=== PATIENT | female | born 1930 | race Caucasian/White ===

== ENCOUNTER 2019-08-15 11:35 | Emergency (ER) | payer MEDICARE, OTHER ==
[~2019-08-15] VITALS: Ht 147.3 cm; Wt 60.5 kg
[2019-08-15] MEDS ORDERED: TETANUS,DIPTH,PERTUSS P/F (BOOSTRIX) 0.5 ML VIAL IM ONE ×2 (12:00→14:07)
--- NOTE | 2019-08-15 12:01 | ED Upper Extremity ---
General Chief Complaint: Upper Extremity Stated Complaint: LT ARM INJ Source: patient Exam Limitations: no limitations History of Present Illness Date Seen by Provider: Aug 15, 2019 Time Seen by Provider: 11:40 Initial Comments The patient is a very pleasant 89 -year-old female who presents for evaluation of a left forearm injury. She states that she was preparing to walk up stairs when she lost her balance hitting her left distal forearm on the stairs. She had a slight skin tear and has applied a Band-Aid. She is unsure of her tetanus status of this will be updated today. She denies hitting her head, losing consciousness, or any other complaints. Onset: this morning Severity: moderate Pain/Injury Location: left forearm Method of Injury: fell Modifying Factors: Improves With Movement (makes it worse) Allergies and Home Medications Allergies Coded Allergies: No Known Drug Allergies (Unverified , 08/15/19) Patient Home Medication List Home Medication List Reviewed: Yes Review of Systems Constitutional: no symptoms reported EENTM: no symptoms reported Respiratory: no symptoms reported Cardiovascular: no symptoms reported Gastrointestinal: no symptoms reported Genitourinary: no symptoms reported Musculoskeletal: other (left distal forearm pain) Skin: no symptoms reported Psychiatric/Neurological: No Symptoms Reported All Other Systems Reviewed Negative Unless Noted: Yes Past Hgtvsro-Cqupge-Orrrki Hx Past Med/Social Hx: Reviewed Nursing Past Med/Soc Hx Patient Social History Recent Foreign Travel: No Physical Exam Vital Signs Vital Signs - First Documented 08/15/19 11:41 Temp 36.0 Pulse 72 Resp 16 B/P (MAP) 183/80 (114) Pulse Ox 97 O2 Delivery Room Air Capillary Refill : Height, Weight, BMI Height: '" Weight: lbs. oz. 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 A sugar tong Ortho-Glass splint will be applied to the arm. Advised the patient to follow up with orthopedics provided in the next 1-2 days and to return to the [facility] Department immediately for new or worsening symptoms. The patient expresses verbal understanding and agreement with plan and is stable for discharge. Diagnostic Imaging Comments [facility]. POS [place], [place] POS NAME: JESIKA WINTERS [facility] REC#: [id number] PT STATUS: REG ER : 1932 PHYSICIAN: JACINDA STACY DO ADMIT DATE: 08/15/19/ER FS Draft POSDate of Exam:08/15/19 FOREARM 2 VIEW LEFT INDICATION: Fall and left arm pain. TIME OF EXAM: 11:41 a.m. FINDINGS: Three views of the left forearm are obtained. There is an acute fracture of the distal ulna. No significant displacement or angulation is seen. There may be an old fracture deformity of the distal radius. Carpus and metacarpals are intact. Alignment at the elbow appears normal. IMPRESSION: Acute nondisplaced distal ulnar fracture. Dictated on workstation # [id number] Dict: 08/15/19 1211 Trans: 08/15/19 1213 [facility] [id number] Interpreted by: MARGY RAMIREZ MD Electronically signed by: Departure Impression Primary Impression: Left ulnar fracture Disposition: 01 HOME, SELF-CARE Condition: Stable Departure-Patient Inst. Decision time for Depature: 13:29 Referrals: STACEY WRIGHT DO Patient Instructions: Forearm Fracture (DC) Add. Discharge Instructions: Take the prescribed medication as directed, as needed. Follow-up with orthopedics provided within the next 1-2 days. Return to the emergency Department immediately for new or worsening symptoms. Scripts Hydrocodone/Acetaminophen ([place] 5-325 Tablet) 1 Each Tablet 1 TAB PO Q4-6HR for Pain MDD 10 TABS for 7 Days, #15 TAB Prov: JACINDA STACY DO 08/15/19 JACINDA STACY DO Aug 15, 2019 12:01 POS
--- NOTE | 2019-08-15 12:13 | Diagnostic Imaging Report ---
INDICATION: Fall and left arm pain. TIME OF EXAM: 11:41 a.m. FINDINGS: Three views of the left forearm are obtained. There is an acute fracture of the distal ulna. No significant displacement or angulation is seen. There may be an old fracture deformity of the distal radius. Carpus and metacarpals are intact. Alignment at the elbow appears normal. IMPRESSION: Acute nondisplaced distal ulnar fracture. Dictated by: Dictated on workstation # [id number]
[2019-08-15] MEDS ORDERED: HYDR-4226 PO (13:31)
[2019-08-15 14:24] VITALS: BP 163/71
== END 2019-08-15 14:24 | disposition home or self-care (01) ==
LOC: EDUNIT# 11:35 → ER FS 11:37
DX: S52.602A Unspecified fracture of lower end of left ulna, initial encounter for closed fracture (principal); W22.8XXA Striking against or struck by other objects, initial encounter; W10.9XXA Fall (on) (from) unspecified stairs and steps, initial encounter
CPT/HCPCS: 29125; 73090; 90471; 90715

== ENCOUNTER → 2019-08-26 | Outpatient (CLI) | payer MEDICARE ==
[~2019-08-26] MED LIST: HYDR-4226 PO
--- NOTE | 2019-08-26 10:09 | Diagnostic Imaging Report ---
EXAMINATION: Left wrist at 905h. INDICATION: Follow-up fracture 3 views were obtained. The prior exam of 08/15/2019 noted an acute essentially nondisplaced fracture of the distal ulna. In the interval since the prior study the fracture fragments have become displaced. The distal fracture fragment is displaced dorsally and medially by approximately 2-3 mm. The fracture now appears to be slightly comminuted as well. No other fracture or acute bony abnormality is appreciated. The degenerative changes involving the radiocarpal joint seen previously are again evident and have not progressed. There is still soft tissue edema about the distal forearm. IMPRESSION: 1. There is greater displacement of the fracture fragments of the distal ulna than noted on the prior exam. The fracture also now appears to be slightly comminuted. 2. There is no acute bony abnormality appreciated. 3. These results were discussed with Alex Mendoza APRN. Dictated by: Dictated on workstation # [id number]
--- NOTE | 2019-08-26 10:19 | Diagnostic Imaging Report ---
INDICATION: Left ulnar fracture follow-up 2 views of the left wrist show an opaque splint in place. There is an oblique fracture of the distal ulna with slight medial offset of the distal component by half the width of the shaft. There is also slight dorsal displacement of the distal component. There is no angular deformity. IMPRESSION: Stable alignment of the distal ulnar fracture following casting. Dictated by: Dictated on workstation # [id number]
== END ==
LOC: RAD FS 08:58
PROVIDERS: ATTEND Nurse Practitioner
DX: S52.692D Other fracture of lower end of left ulna, subsequent encounter for closed fracture with routine healing (principal)
CPT/HCPCS: 73100; 73110

== ENCOUNTER → 2019-09-09 | Outpatient (CLI) | payer MEDICARE ==
--- NOTE | 2019-09-09 10:36 | Diagnostic Imaging Report ---
INDICATION: Fracture, followup TECHNIQUE: Four views of the left wrist CORRELATION STUDY: 08/26/2019, 08/15/2019 FINDINGS: Cast material obscures detail. Comminuted displaced distal ulna fracture is again demonstrated. The severity of offset of the main distal fracture fragment approximately half the width of the bone appears generally stable. There is no appreciable interval healing callus formation. Deformity about the distal radius, stable. Advanced degenerative changes at the radiocarpal row. IMPRESSION: 1. No appreciable interval healing of the mildly displaced distal ulna fracture. Alignment generally stable. Dictated by: Dictated on workstation # [id number]
== END ==
LOC: RAD FS 09:28
PROVIDERS: ATTEND Nurse Practitioner
DX: S52.692D Other fracture of lower end of left ulna, subsequent encounter for closed fracture with routine healing (principal)
CPT/HCPCS: 73110

== ENCOUNTER → 2019-10-07 | Outpatient (CLI) | payer MEDICARE ==
--- NOTE | 2019-10-07 09:19 | Diagnostic Imaging Report ---
INDICATION: Left ulnar fracture followup. FINDINGS: Four views of the left wrist show a healing fracture of the distal shaft of the ulna. The fracture is obliquely oriented with some comminution. There does appear to be some callus forming along the medial and lateral margins of the fracture. IMPRESSION: Healing fracture of the distal shaft in stable alignment. Dictated by: Dictated on workstation # [id number]
== END ==
LOC: RAD FS 09:08
PROVIDERS: ATTEND Nurse Practitioner
DX: S52.692D Other fracture of lower end of left ulna, subsequent encounter for closed fracture with routine healing (principal)
CPT/HCPCS: 73110

== ENCOUNTER → 2019-11-05 | Outpatient (CLI) | payer MEDICARE ==
--- NOTE | 2019-11-05 09:42 | Diagnostic Imaging Report ---
EXAMINATION: Left wrist radiographs, 3 views. COMPARISON: Left wrist radiographs October 07, 2019. HISTORY: 89-year-old female, fracture follow-up. FINDINGS: There is a redemonstrated displaced fracture of the distal ulnar diaphysis. The distal fracture fragment is displaced ulnarly by 3.4 mm. There is interval increase in bony callus bridging. There is a partially visible fracture line still present. There is no additional identified fracture. IMPRESSION: 1. Interval partial healing changes of the displaced distal ulnar diaphyseal fracture. Dictated by: Dictated on workstation # [id number]
== END ==
LOC: RAD FS 08:15
PROVIDERS: ATTEND Nurse Practitioner
DX: S52.692D Other fracture of lower end of left ulna, subsequent encounter for closed fracture with routine healing (principal)
CPT/HCPCS: 73110

== ENCOUNTER 2019-12-08 16:34 | Emergency (ER) | payer MEDICARE ==
[~2019-12-08] VITALS: Ht 147 cm; Wt 60.5 kg
--- NOTE | 2019-12-08 16:50 | ED Fall/Injury ---
General Stated Complaint: FALL; LT ARM PAIN History of Present Illness Date Seen by Provider: Dec 08, 2019 Time Seen by Provider: 16:47 Initial Comments This patient is an 89-year-old female presents to the emergency status post fall. Patient was outside walking and states she was going of a slightly inclined and lean her forward up the heel and there just fell forward landing on her left arm. Patient is complaining of left shoulder and left elbow and left wrist pain. No obvious signs of injury however patient has limited range of motion due to pain per patient. Patient is in a sling at this time per EMS. EMS reportedly did give the patient 50 of fentanyl for pain. Will do medical evaluation treatment is needed. Location Injury Occurred: Home Outside Occurred: just prior to arrival Injuries/Pain Location: upper extremity Context: lost balance Loss of Consciousness: no loss of consciousness Allergies and Home Medications Allergies Coded Allergies: No Known Drug Allergies (Unverified , 08/15/19) Home Medications Hydrocodone/Acetaminophen 1 Each Tablet, 1 TAB PO Q4-6HR Prescribed by: JACINDA STACY on 08/15/19 1331 Patient Home Medication List Home Medication List Reviewed: Yes Review of Systems Review of Systems Constitutional: no symptoms reported, see HPI Eyes: No Symptoms Reported Ears, Nose, Mouth, Throat: no symptoms reported, see HPI Respiratory: no symptoms reported; No see HPI, No cough, No dyspnea on exertion, No hemoptysis; orthopnea; No phlegm, No short of breath, No stridor, No wheezing, No other Cardiovascular: no symptoms reported; No see HPI, No chest pain; edema; No Hx of Intervention, No palpitations, No syncope, No vascular heart diseas, No other Gastrointestinal: No RUQ, No LUQ, No RLQ, No LLQ; no symptoms reported; No see HPI, No abdominal pain, No constipation, No diarrhea, No dysphagia, No hematemesis, No heartburn, No jaundice, No loss of appetite, No melena, No nausea, No vomiting, No other Genitourinary: no symptoms reported Musculoskeletal: see HPI, joint pain (left shoulder, left elbow, left wrist,) All Other Systems Reviewed Negative Unless Noted: Yes Past Mwkondj-Vtbdab-Alwysd Hx Past Med/Social Hx: Reviewed Nursing Past Med/Soc Hx, Reviewed and Corrections made Patient Social History 2nd Hand Smoke Exposure: No Recent Foreign Travel: Yes Recent Hopitalizations: No Immunizations Up To Date Tetanus Booster (TDap): Unknown Seasonal Allergies Seasonal Allergies: No Past Medical History Surgeries: Yes Appendectomy, Bowel Surgery Respiratory: No Cardiac: Yes High Cholesterol, Hypertension Neurological: Yes (Tremors) Vertigo Genitourinary: No Gastrointestinal: No Musculoskeletal: Yes (L Wrist) Fractures Endocrine: No HEENT: Yes Loss of Vision: Denies Hearing Impairment: Hard of Hearing Cancer: No Psychosocial: No Integumentary: No Blood Disorders: No Physical Exam Vital Signs Vital Signs - First Documented 12/08/19 17:10 Temp 37.0 Pulse 79 Resp 18 B/P (MAP) 170/123 (139) Pulse Ox 94 O2 Delivery Room Air Capillary Refill : Height, Weight, BMI Height: '" Weight: lbs. oz. kg; 27.00 BMI Method: General Appearance: WD/WN, no apparent distress HEENT: PERRL/EOMI, normal ENT inspection, TMs normal, pharynx normal Neck: non-tender, full range of motion, supple, normal inspection Cardiovascular: normal peripheral pulses, regular rate, rhythm, no edema, no gallop, no JVD, no murmur Respiratory: chest non-tender, lungs clear, normal breath sounds, no respiratory distress, no accessory muscle use Peripheral Pulses: 0 Carotid (R); 2+ Carotid (R); 0 Carotid (L); 2+ Carotid (L); 0 Femoral (R); 2+ Femoral (R); 0 Femoral (L); 2+ Femoral (L); 0 Dorsalis Pedis (R); 2+ Dorsalis Pedis (R), 2+ Left Dors-Pedis (L), 2+ Radial Pulses (R), 2+ Radial Pulses (L) Gastrointestinal: normal bowel sounds, non tender, soft, no organomegaly, no pulsatile mass Back: normal inspection, no CVA tenderness, no vertebral tenderness Extremities: other (patient complains of pain to range of motion of motion of the left shoulder elbow and wrist. Patient refuses produce pain exam due to complaints of pain. No obvious signs of injury. 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, no motor/sensory deficits, alert, normal mood/affect, oriented x 3 Skin: normal color, warm/dry Procedures/Interventions Splinting and Joint Reduction : Pre-Proc Neuro Vasc Exam: normal Post-Proc Neuro Vasc Exam: normal Joint Reduction Site: shoulder (L) Pre-Procedure NV Exam: Yes post joint reduction film: significant midshaft humeral fracture recommended long-arm splint and sling Long wrap: Yes Arm Sling: Medium Hand-Made Type: orthoglass Splint Application: Long Arm Progress/Results/Core Measures Results/Orders Lab Results Laboratory Tests Test 12/08/19 17:28 Range/Units White Blood Count 7.7 4.3-11.0 10^3/uL Red Blood Count 5.24 4.35-5.85 10^6/uL Hemoglobin 15.8 11.5-16.0 G/DL Hematocrit 48 35-52 % Mean Corpuscular Volume 91 80-99 FL Mean Corpuscular Hemoglobin 30 25-34 PG Mean Corpuscular Hemoglobin Concent 33 32-36 G/DL Red Cell Distribution Width 12.8 10.0-14.5 % Platelet Count 260 130-400 10^3/uL Mean Platelet Volume 9.7 7.4-10.4 FL Neutrophils (%) (Auto) 71 42-75 % Lymphocytes (%) (Auto) 18 12-44 % Monocytes (%) (Auto) 9 0-12 % Eosinophils (%) (Auto) 1 0-10 % Basophils (%) (Auto) 1 0-10 % Neutrophils # (Auto) 5.4 1.8-7.8 X 10^3 Lymphocytes # (Auto) 1.4 1.0-4.0 X 10^3 Monocytes # (Auto) 0.7 0.0-1.0 X 10^3 Eosinophils # (Auto) 0.1 0.0-0.3 10^3/uL Basophils # (Auto) 0.0 0.0-0.1 10^3/uL Prothrombin Time 12.3 12.2-14.7 SEC INR Comment 0.9 0.8-1.4 Activated Partial Thromboplast Time 27 24-35 SEC Sodium Level 142 135-145 MMOL/L Potassium Level 4.3 3.6-5.0 MMOL/L Chloride Level 105 98-107 MMOL/L Carbon Dioxide Level 23 21-32 MMOL/L Anion Gap 14 5-14 MMOL/L Blood Urea Nitrogen 22 H 7-18 MG/DL Creatinine 0.84 0.60-1.30 MG/DL Estimat Glomerular Filtration Rate > 60 BUN/Creatinine Ratio 26 Glucose Level 146 H 70-105 MG/DL Calcium Level 9.7 8.5-10.1 MG/DL Corrected Calcium 9.5 8.5-10.1 MG/DL Magnesium Level 2.5 H 1.6-2.4 MG/DL Total Bilirubin 0.5 0.1-1.0 MG/DL Aspartate Amino Transf (AST/SGOT) 23 5-34 U/L Alanine Aminotransferase (ALT/SGPT) 19 0-55 U/L Alkaline Phosphatase 70 40-136 U/L Myoglobin 45.5 10.0-92.0 NG/ML Troponin I < 0.30 <0.30 NG/ML Total Protein 6.9 6.4-8.2 GM/DL Albumin 4.2 3.2-4.5 GM/DL My Orders Orders - MAYUR SKAGGS MD Cbc With Automated Diff (12/08/19 16:44) Magnesium (12/08/19 16:44) Chest 1 View Ap/Pa Only (12/08/19 16:44) Ekg Tracing (12/08/19 16:44) Comprehensive Metabolic Panel (12/08/19 16:44) Myoglobin Serum (12/08/19 16:44) Protime With Inr (12/08/19 16:44) Partial Thromboplastin Time (12/08/19 16:44) O2 (12/08/19 16:44) Monitor-Rhythm Ecg Trace Only (12/08/19 16:44) Ed Iv/Invasive Line Start (12/08/19 16:44) Troponin I Fs (12/08/19 16:44) Shoulder 3 View Left (12/08/19 16:44) Elbow 2 View Left (12/08/19 16:44) Wrist 3 View Left (12/08/19 16:44) Humerus 2 View Left (12/08/19 17:23) Morphine Injection (Morphine Injection (12/08/19 18:30) Ondansetron Injection (Zofran Injectio (12/08/19 18:31) Vital Signs/I&O 12/08/19 12/08/19 17:10 17:10 Temp 37.0 Pulse 79 Resp 18 B/P (MAP) 170/123 (139) Pulse Ox 94 O2 Delivery Room Air Diagnostic Imaging Diagonstic Imaging: Xray Plain Films/CT/US/NM/MRI: other Comments Shoulder IMPRESSION: There is a fracture through the humeral neck and greater tuberosity and also oblique fracture through the proximal third of the humeral shaft. Departure Impression Primary Impression: Fall Additional Impressions: Fracture of humeral head, left, closed Humerus shaft fracture Disposition: 01 HOME, SELF-CARE Condition: Stable Transfer Transfer Reason: Patient preference Time Spoke to Accepting Phy: 18:34 Transfer Progress Notes Discussed at length with Dr Leung physician at [facility]. We discussed patient's imaging he states that the patient be placed in a long-arm splint for stability of the fractures. And also a sling. Follow-up with orthopedics as an outpatient. Adequate pain control. Rest ice elevation patient's family state understanding patient be discharged home shortly. Departure-Patient Inst. Decision time for Depature: 18:43 Patient Instructions: How to Make a Hot/Cold Rice Pack, Upper Arm Fracture Add. Discharge Instructions: Splint and sling as instructed. Keep arm elevated on a pillow in a position of comfort and apply ice packs. Continue with pain medicine as instructed. Follow- up with orthopedics as instructed. Scheduled outpatient appointment within 5-7 days. For further evaluation and treatment his splint replacement. Dr Jamari Arivzu, [facility] Address: [address] [place] [address] [address], [place] [address] Hours: Closed ? Opens 8:30AM Mon Scripts Hydrocodone Bit/Acetaminophen (HYDROcodone/APAP 7.5/325 TAB) 1 Ea Tablet 1 EA PO TID PRN for PAIN-MODERATE (5-7) for 7 Days, #10 TAB 0 Refills Prov: MAYUR SKAGGS MD 12/08/19 MAYUR SKAGGS MD Dec 08, 2019 16:50
--- NOTE | 2019-12-08 17:35 | Diagnostic Imaging Report ---
INDICATION: Fell, left arm pain. FINDINGS: Three views of the left wrist are obtained in nonstandard projections. A true lateral was never obtained. There is an old fracture of the distal radius and ulna. Osteopenia is present. No acute fractures are identified. IMPRESSION: There are no acute findings. Dictated by: Dictated on workstation # [id number]
--- NOTE | 2019-12-08 17:41 | Diagnostic Imaging Report ---
INDICATION: Fell, left shoulder pain. FINDINGS: Three views of the left shoulder demonstrate a fracture through the humeral neck and greater tuberosity. Fracture through the proximal third of the shaft is also present. IMPRESSION: There is a fracture through the humeral neck and greater tuberosity and also oblique fracture through the proximal third of the humeral shaft. Dictated by: Dictated on workstation # [id number]
[2019-12-08 17:43] LABS: WHITE BLOOD COUNT 7.7 10^3/uL (4.3-11.0)
[2019-12-08 17:44] LABS: BASOPHILS % (AUTO) 1 % (0-10); EOSINOPHILS # (AUTO) 0.1 10^3/uL (0.0-0.3); EOSINOPHILS % (AUTO) 1 % (0-10); HEMATOCRIT 48 % (35-52); HEMOGLOBIN 15.8 G/DL (11.5-16.0); LYMPHOCYTES # (AUTO) 1.4 X 10^3 (1.0-4.0); LYMPHOCYTES % (AUTO) 18 % (12-44); MEAN CORPUSCULAR HEMOGLOBIN 30 PG (25-34); MEAN CORPUSCULAR HGB CONC 33 G/DL (32-36); MEAN CORPUSCULAR VOLUME 91 FL (80-99); MEAN PLATELET VOLUME 9.7 FL (7.4-10.4); MONOCYTES # (AUTO) 0.7 X 10^3 (0.0-1.0); MONOCYTES % (AUTO) 9 % (0-12); NEUTROPHILS # (AUTO) 5.4 X 10^3 (1.8-7.8); NEUTROPHILS % (AUTO) 71 % (42-75); PLATELET COUNT 260 10^3/uL (130-400); RED CELL DISTRIBUTION WIDTH 12.8 % (10.0-14.5)
--- NOTE | 2019-12-08 17:44 | Diagnostic Imaging Report ---
INDICATION: Fell, left elbow pain. FINDINGS: Three views of the left elbow are obtained in nonstandard projections. Osteopenia is present. Joint effusion is present but no fractures identified. A radial head fracture is suspected. IMPRESSION: Nonstandard images of the left elbow demonstrates a joint effusion. Radial head fracture is suspected but is not visualized. Dictated by: Dictated on workstation # [id number]
[2019-12-08 17:59] LABS: PROTHROMBIN TIME PATIENT 12.3 SEC (12.2-14.7)
[2019-12-08 18:00] LABS: ALANINE AMINOTRANSFERASE 19 U/L (0-55); ALBUMIN 4.2 GM/DL (3.2-4.5); ALKALINE PHOSPHATASE 70 U/L (40-136); BILIRUBIN,TOTAL 0.5 MG/DL (0.1-1.0); BUN/CREATININE RATIO 26; CALCIUM 9.7 MG/DL (8.5-10.1); CARBON DIOXIDE 23 MMOL/L (21-32); CHLORIDE 105 MMOL/L (98-107); CREATININE SERUM 0.84 MG/DL (0.60-1.30); GFR ESTIMATED > 60; GLUCOSE 146 MG/DL (70-105); INR 0.9 (0.8-1.4); MAGNESIUM 2.5 MG/DL (1.6-2.4); POTASSIUM 4.3 MMOL/L (3.6-5.0); SODIUM 142 MMOL/L (135-145); TOTAL PROTEIN 6.9 GM/DL (6.4-8.2)
--- NOTE | 2019-12-08 18:01 | Diagnostic Imaging Report ---
INDICATION: Fell with left shoulder pain. FINDINGS: Frontal view of the chest demonstrates the lungs to be clear. The heart, mediastinum and pulmonary vascularity are normal. There are no pleural effusions. Left shoulder fracture will be dictated separately. IMPRESSION: Normal chest. Dictated by: Dictated on workstation # [id number]
--- NOTE | 2019-12-08 18:04 | Diagnostic Imaging Report ---
INDICATION: Fell, left arm pain. FINDINGS: Two views of the left arm demonstrate a spiral fracture through the proximal third of the humerus. There is a fracture through the greater tuberosity just entering the neck. IMPRESSION: There is a left humeral shaft fracture and a fracture through the greater tuberosity. Dictated by: Dictated on workstation # [id number]
[2019-12-08] MEDS ORDERED: morphine INJ 10 MG/ML 1ML (SYR OR VIAL) IVP STA (18:30)
[2019-12-08] MEDS ORDERED: ONDANSETRON 4 MG/2 ML (SDV) Z0FRAN ONE (18:31)
[2019-12-08] MEDS ORDERED: HYDR-34 PO (18:53)
[2019-12-08 19:30] VITALS: BP 147/75
--- OUTSIDE RECORDS SUMMARY | 2019-12-11 09:07 | XMS REPORT | Continuity of Care Document ---
Author Organization Unknown Address Unknown Phone Unavailable Allergies Active Description Code Type Severity Reaction Onset Reported/Identified Relationship to Patient Clinical Status Yes No Known Drug Allergies [id number] Drug Allergy Unknown N/A 08/15/2019 Medications There is no data. Problems Date Dx Coded Attending Type Code Diagnosis Diagnosed By 08/15/2019 TAWANNA MONACO DO Ot M79.632 PAIN IN LEFT FOREARM 08/15/2019 TAWANNA MONACO DO Ot S52.602A UNSP FRACTURE OF LOWER END OF LEFT ULNA, 08/15/2019 TAWANNA MONACO DO Ot W10.9XXA FALL (ON) (FROM) UNSPECIFIED STAIRS AND 08/15/2019 TAWANNA MONACO DO Ot W22.8XXA STRIKING AGAINST OR STRUCK BY OTHER OBJE 08/19/2019 TAWANNA MONACO DO Ot M79.632 PAIN IN LEFT FOREARM 08/19/2019 TAWANNA MONACO DO Ot S52.602A UNSP FRACTURE OF LOWER END OF LEFT ULNA, 08/19/2019 TAWANNA MONACO DO Ot W10.9XXA FALL (ON) (FROM) UNSPECIFIED STAIRS AND 08/19/2019 TAWANNA MONACO DO Ot W22.8XXA STRIKING AGAINST OR STRUCK BY OTHER OBJE 08/28/2019 PEE SPARKS Ot S52.692D OTH FX LOWER END OF LEFT ULNA, SUBS FOR 09/27/2019 PEE SPARKS Ot S52.692D OTH FX LOWER END OF LEFT ULNA, SUBS FOR 11/06/2019 PEE SPARKS Ot S52.692D OTH FX LOWER END OF LEFT ULNA, SUBS FOR 12/08/2019 PEE SPARKS Ot S52.692D OTH FX LOWER END OF LEFT ULNA, SUBS FOR 12/08/2019 PEE SPARKS Ot S52.692D OTH FX LOWER END OF LEFT ULNA, SUBS FOR 12/08/2019 PEE SPARKSP Ot S52.692D OT FX LOWER END OF LEFT ULNA, SUBS FOR 12/08/2019 PEE SPARKS Ot S52.692D OT FX LOWER END OF LEFT ULNA, SUBS FOR Procedures There is no data. Results Test Result Range Complete blood count (CBC) with automate d white blood cell (WBC) differential - 12/08/19 17:28 Blood leukocytes automated count (number/volume) 7.7 10*3/uL 4.3-11.0 Blood erythrocytes automated count (number/volume) 5.24 10*6/uL 4.35-5.85 Venous blood hemoglobin measurement (mass/volume) 15.8 g/dL 11.5-16.0 Blood hematocrit (volume fraction) 48 % 35-52 Automated erythrocyte mean corpuscular volume 91 [ foz_us] 80-99 Automated erythrocyte mean corpuscular h emoglobin (mass per erythrocyte) 30 pg 25-34 Automated erythrocyte mean corpuscular h emoglobin concentration measurement (mass/volume) 33 g/dL 32-36 Automated erythrocyte distribution width ratio 12. 8 % 10.0- 14.5 Automated blood platelet count (count/volume) 260 10*3/uL 130-400 Automated blood platelet mean volume measurement 9.7 [foz_us] 7.4-10.4 Automated blood neutrophils/100 leukocytes 71 % 42-75 Automated blood lymphocytes/100 leukocytes 18 % 12-44 Blood monocytes/100 leukocytes 9 % 0-12 Automated blood eosinophils/100 leukocytes 1 % 0-10 Automated blood basophils/100 leukocytes 1 % 0-10 Blood neutrophils automated count (number/volume) 5.4 10*3 1.8-7.8 Blood lymphocytes automated count (number/volume) 1.4 10*3 1.0-4.0 Blood monocytes automated count (number/volume) 0. 7 10*3 0.0-1.0 Automated eosinophil count 0.1 10*3/uL 0 .0-0.3 Automated blood basophil count (count/volume) 0.0 10*3/uL 0.0-0.1 PT panel in platelet poor plasma by coag ulation assay - 12/08/19 17:28 Prothrombin time (PT) in platelet poor plasma by coagu lation assay 12.3 s 12.2-14.7 INR in platelet poor plasma or blood by coagulation as say 0.9 0.8-1.4 Activated partial thromboplastin time (a PTT) in platelet poor plasma bycoagulation assay - 12/08/19 17:28 Activated partial thromboplastin time (a PTT) in platelet poor plasma bycoagulation assay 27 s 24-35 Comprehensive metabolic panel - 12/08/19 17:28 Serum or plasma sodium measurement (moles/volume) 142 mmol/L 135-145 Serum or plasma potassium measurement (moles/volume) 4.3 mmol/L 3.6-5.0 Serum or plasma chloride measurement (moles/volume) 105 mmol/L 98-107 Carbon dioxide 23 mmol/L 21-32 Serum or plasma anion gap determination (moles/volume) 14 mmol/L 5-14 Serum or plasma urea nitrogen measurement (mass/volume ) 22 mg/dL 7-18 Serum or plasma creatinine measurement (mass/volume) 0.84 mg/dL 0.60-1.30 Serum or plasma urea nitrogen/creatinine mass ratio 26 NRG Serum or plasma creatinine measurement w ith calculation of estimated glomerular filtration rate > NRG Serum or plasma glucose measurement (mass/volume) 146 mg/dL 70-105 Serum or plasma calcium measurement (mass/volume) 9.7 mg/dL 8.5-10.1 Serum or plasma total bilirubin measurement (mass/volu me) 0.5 mg/dL 0.1-1.0 Serum or plasma alkaline phosphatase judy surement (enzymatic activity/volume) 70 U/L 40-136 Serum or plasma aspartate aminotransfera se measurement (enzymatic activity/volume) 23 U/L 5-34 Serum or plasma alanine aminotransferase measurement (enzymatic activity/volume) 19 U/L 0-55 Serum or plasma protein measurement (mass/volume) 6.9 g/dL 6.4-8.2 Serum or plasma albumin measurement (mass/volume) 4.2 g/dL 3.2-4.5 CALCIUM CORRECTED 9.5 mg/dL 8.5-10.1 Magnesium - 12/08/19 17:28 Magnesium 2.5 mg/dL 1.6-2.4 Myoglobin, serum - 12/08/19 17:28 Myoglobin, serum 45.5 ng/mL 10.0-92.0 TROPONIN I FS - 12/08/19 17:28 TROPONIN I FS < 0.30 <0.30 Encounters ACCT No. Visit Date/Time Discharge Status Pt. Type Provider Facility Loc./Unit Complaint [id number] 12/08/2019 16:35:00 19:30:00 DIS Emergency MAYUR SKAGGS MD [facility] ER FS FALL; LT ARM PAIN [id number] 11/05/2019 08:15:00 23:59:59 CLS Outpatient PEE SPARKS [facility] RAD FS S52.692D [id number] 10/07/2019 09:08:00 23:59:59 CLS Outpatient PEE SPARKS [facility] RAD FS S52.692D [id number] 09/09/2019 09:28:00 23:59:59 CLS Outpatient PEE SPARKS [facility] RAD FS S52.692D [id number] 08/26/2019 08:58:00 23:59:59 CLS Outpatient PEE SPARKS [facility] RAD FS S52.692A [id number] 08/15/2019 11:37:00 14:24:00 DIS Emergency TAWANNA MONACO DO [facility] ER FS LT ARM INJ
== END 2019-12-08 19:30 | disposition home or self-care (01) ==
LOC: EDUNIT# 16:34 → ER FS 16:35
DX: S42.202A Unspecified fracture of upper end of left humerus, initial encounter for closed fracture (principal); S42.302A Unspecified fracture of shaft of humerus, left arm, initial encounter for closed fracture; W18.39XA Other fall on same level, initial encounter
CPT/HCPCS: 29105; 36415; 71045; 73030; 73060; 73070; 73110; 80053; 83735; 83874; 84484; 85025; 85610; 85730; 93005; 93041

== ENCOUNTER 2020-04-01 13:05 | Day surgery (SDC) | payer MEDICARE ==
[~2020-04-01] VITALS: Ht 149.8 cm; Wt 57.0 kg
[~2020-04-01 13:05] MED LIST changes: +HYDR-34 PO
--- NOTE | 2020-04-01 13:15 | ED Cardiac General ---
History of Present Illness General Stated Complaint: FALL;LOW HR;WEAKNESS Source: patient, family History of Present Illness Date Seen by Provider: Apr 01, 2020 Time Seen by Provider: 13:15 Initial Comments 89-year-old female brought in with the bradycardia, weakness and recurrent falls. Patient had a fall yesterday and when they lifted her up they noticed her heart rate was low. They took her to her primary care provider and her heart rate was in the 40s. At that time it was recommended she come to the ER but family felt that it might be her eyedrops they took her home. Patient stumbled again today and then had low heart rates about in for evaluation. Patient has dementia and is very poor historian but does not have any complaints. She does h ave a known left arm fracture from a fall couple months ago. Allergies and Home Medications Allergies Coded Allergies: No Known Drug Allergies (Unverified , 08/15/19) Home Medications Hydrocodone Bit/Acetaminophen 1 Ea Tablet, 1 EA PO TID PRN for PAIN-MODERATE (5- 7) Prescribed by: MAYUR SKAGGS on 12/08/19 1853 Hydrocodone/Acetaminophen 1 Each Tablet, 1 TAB PO Q4-6HR Prescribed by: JACINDA STACY on 08/15/19 1331 Patient Home Medication List Home Medication List Reviewed: Yes Review of Systems Review of Systems Constitutional: No chills, No fever; weakness EENTM: No Symptoms Reported Respiratory: Denies Cough Cardiovascular: See HPI; Denies Chest Pain Gastrointestinal: Denies Abdominal Pain, Denies Nausea, Denies Vomiting Genitourinary: No Symptoms Reported Musculoskeletal: no symptoms reported, see HPI Skin: no symptoms reported Psychiatric/Neurological: No Symptoms Reported Past Sqvfvmh-Wppkny-Ohnryq Hx Past Med/Social Hx: Reviewed Nursing Past Med/Soc Hx Patient Social History 2nd Hand Smoke Exposure: No Recent Hopitalizations: No Immunizations Up To Date Tetanus Booster (TDap): Unknown Seasonal Allergies Seasonal Allergies: No Past Medical History Surgeries: Yes Appendectomy, Bowel Surgery Respiratory: No Cardiac: Yes High Cholesterol, Hypertension Neurological: Yes (Tremors) Vertigo Genitourinary: No Gastrointestinal: No Musculoskeletal: Yes (L Wrist) Fractures Endocrine: No HEENT: Yes Loss of Vision: Denies Hearing Impairment: Hard of Hearing Cancer: No Psychosocial: No Integumentary: No Blood Disorders: No Physical Exam Vital Signs Vital Signs - First Documented 04/01/20 04/01/20 13:05 13:45 Temp 36.4 Pulse 37 Resp 18 B/P (MAP) 203/72 (115) Pulse Ox 95 O2 Delivery Room Air Capillary Refill : Height, Weight, BMI Height: '" Weight: lbs. oz. kg; 27.00 BMI Method: General Appearance: No Apparent Distress, Other HEENT: PERRL/EOMI (.) Neck: Non Tender Respiratory: Lungs Clear, Normal Breath Sounds Cardiovascular: Bradycardia Gastrointestinal: Non Tender Extremity: Normal Capillary Refill Neurologic/Psychiatric: Alert, No Motor/Sensory Deficits, Normal Mood/Affect Skin: Normal Color, Warm/Dry Progress/Results/Core Measures Results/Orders Lab Results Laboratory Tests Test 04/01/20 13:11 04/01/20 13:27 Range/Units White Blood Count 6.5 4.3-11.0 10^3/uL Red Blood Count 5.36 4.35-5.85 10^6/uL Hemoglobin 16.2 H 11.5-16.0 G/DL Hematocrit 48 35-52 % Mean Corpuscular Volume 90 80-99 FL Mean Corpuscular Hemoglobin 30 25-34 PG Mean Corpuscular Hemoglobin Concent 34 32-36 G/DL Red Cell Distribution Width 13.2 10.0-14.5 % Platelet Count 237 130-400 10^3/uL Mean Platelet Volume 10.4 7.4-10.4 FL Neutrophils (%) (Auto) 56 42-75 % Lymphocytes (%) (Auto) 30 12-44 % Monocytes (%) (Auto) 12 0-12 % Eosinophils (%) (Auto) 2 0-10 % Basophils (%) (Auto) 0 0-10 % Neutrophils # (Auto) 3.6 1.8-7.8 X 10^3 Lymphocytes # (Auto) 2.0 1.0-4.0 X 10^3 Monocytes # (Auto) 0.8 0.0-1.0 X 10^3 Eosinophils # (Auto) 0.1 0.0-0.3 10^3/uL Basophils # (Auto) 0.0 0.0-0.1 10^3/uL Sodium Level 142 135-145 MMOL/L Potassium Level 4.3 3.6-5.0 MMOL/L Chloride Level 112 H 98-107 MMOL/L Carbon Dioxide Level 21 21-32 MMOL/L Anion Gap 9 5-14 MMOL/L Blood Urea Nitrogen 21 H 7-18 MG/DL Creatinine 0.94 0.60-1.30 MG/DL Estimat Glomerular Filtration Rate 56 BUN/Creatinine Ratio 22 Glucose Level 87 70-105 MG/DL Calcium Level 9.4 8.5-10.1 MG/DL Corrected Calcium 9.3 8.5-10.1 MG/DL Magnesium Level 2.6 H 1.6-2.4 MG/DL Total Bilirubin 0.7 0.1-1.0 MG/DL Aspartate Amino Transf (AST/SGOT) 25 5-34 U/L Alanine Aminotransferase (ALT/SGPT) 18 0-55 U/L Alkaline Phosphatase 65 40-136 U/L Troponin I < 0.028 <0.028 NG/ML B-Type Natriuretic Peptide 180.3 H <100.0 PG/ML Total Protein 7.1 6.4-8.2 GM/DL Albumin 4.1 3.2-4.5 GM/DL Thyroid Stimulating Hormone (TSH) 1.88 0.35-4.94 UIU/ML Glucometer 102 70-110 MG/DL My Orders Orders - MARLEY,MANDA L DO BNP (04/01/20 13:19) Cbc With Automated Diff (04/01/20 13:19) Comprehensive Metabolic Panel (04/01/20 13:19) Magnesium (04/01/20 13:19) Thyroid Stimulating Hormone (04/01/20 13:19) Troponin I (04/01/20 13:19) Accucheck Stat ONCE (04/01/20 13:19) Chest 1 View, Ap/Pa Only (04/01/20 13:19) Ekg Tracing (04/01/20 13:26) Monitor-Rhythm Ecg Trace Only (04/01/20 13:26) Vital Signs/I&O 04/01/20 04/01/20 13:05 13:45 Temp 36.4 Pulse 37 36 Resp 18 18 B/P (MAP) 203/72 (115) 197/88 (124) Pulse Ox 95 95 O2 Delivery Room Air Progress Progress Note : Time: 15:59 Progress Note Patient with a high-grade heart block, Dr. Hankins will take her to the operating room and placed a pacemaker. She was transferred to the OR in stable condition Departure Communication (Admissions) Time/Spoke to Admitting Phy: 15:[address] Hankins, he will take to OR and placed pacemaker Impression Primary Impression: Bradycardia Disposition: ADMITTED INPATIENT Condition: Stable Admissions Decision to Admit Reason: Admit from ER (General) Decision to Admit/Date: Apr 01, 2020 Time/Decision to Admit Time: 15:00 Departure-Patient Inst. Referrals: EMILY BERKOWITZ DO (PCP/Family) Primary Care Physician MANDA MARLEY DO Apr 01, 2020 13:15
[2020-04-01 13:31] LABS: BASOPHILS % (AUTO) 0 % (0-10); EOSINOPHILS # (AUTO) 0.1 10^3/uL (0.0-0.3); EOSINOPHILS % (AUTO) 2 % (0-10); HEMATOCRIT 48 % (35-52); HEMOGLOBIN 16.2 G/DL (11.5-16.0); LYMPHOCYTES % (AUTO) 30 % (12-44); MEAN CORPUSCULAR HEMOGLOBIN 30 PG (25-34); MEAN CORPUSCULAR HGB CONC 34 G/DL (32-36); MEAN CORPUSCULAR VOLUME 90 FL (80-99); MEAN PLATELET VOLUME 10.4 FL (7.4-10.4); MONOCYTES # (AUTO) 0.8 X 10^3 (0.0-1.0); MONOCYTES % (AUTO) 12 % (0-12); NEUTROPHILS # (AUTO) 3.6 X 10^3 (1.8-7.8); NEUTROPHILS % (AUTO) 56 % (42-75); PLATELET COUNT 237 10^3/uL (130-400); RED CELL DISTRIBUTION WIDTH 13.2 % (10.0-14.5); WHITE BLOOD COUNT 6.5 10^3/uL (4.3-11.0)
[2020-04-01 13:42] LABS: ALBUMIN 4.1 GM/DL (3.2-4.5); CHLORIDE 112 MMOL/L (98-107); POTASSIUM 4.3 MMOL/L (3.6-5.0); SODIUM 142 MMOL/L (135-145)
[2020-04-01 13:44] LABS: CALCIUM 9.4 MG/DL (8.5-10.1)
[2020-04-01 13:45] VITALS: BP 197/88
[2020-04-01 13:45] LABS: GLUCOSE 87 MG/DL (70-105); TOTAL PROTEIN 7.1 GM/DL (6.4-8.2)
[2020-04-01 13:46] LABS: CARBON DIOXIDE 21 MMOL/L (21-32)
[2020-04-01 13:47] LABS: BILIRUBIN,TOTAL 0.7 MG/DL (0.1-1.0)
[2020-04-01 13:48] LABS: ALKALINE PHOSPHATASE 65 U/L (40-136); CREATININE SERUM 0.94 MG/DL (0.60-1.30); GFR ESTIMATED 56
[2020-04-01 13:49] LABS: BUN/CREATININE RATIO 22
[2020-04-01] MEDS ORDERED: SIMV20TA26 (13:50)
[2020-04-01] MEDS ORDERED: BRIN8DRO (13:50)
[2020-04-01] MEDS ORDERED: LISI-552 (13:50)
[2020-04-01 13:51] LABS: ALANINE AMINOTRANSFERASE 18 U/L (0-55); MAGNESIUM 2.6 MG/DL (1.6-2.4)
--- NOTE | 2020-04-01 13:55 | Diagnostic Imaging Report ---
INDICATION: Fall with bradycardia and weakness. Frontal chest obtained at 01:41 p.m. and compared to 12/08/2019. There is cardiomegaly. Mediastinal silhouette is unremarkable. The lungs are clear. There is no pneumothorax or pleural fluid. The patient's known left humeral fracture is not completely united. IMPRESSION: Cardiomegaly with no acute process in the chest. Dictated by: Dictated on workstation # [id number]
--- NOTE | 2020-04-01 14:30 | NUR ---
DR ARTHUR HERE TO SEE PATIENT
--- NOTE | 2020-04-01 14:34 | NUR ---
DAUGHTER CALLED AND TOLD TO MEET DR ARTHUR AT ER DOORS.
--- NOTE | 2020-04-01 15:17 | Consultation-Cardiology ---
HPI-Cardiology Cardiology Consultation Date of Consultation 04/01/20 Date of Admission Time Seen by Provider: 15:13 Indication: complete heart block HPI 89-year-old lady with history of hypertension, presented to the emergency room with generalized weakness multiple falling, noted to have heart rate in the 30s down to 20s, noted to have complete heart block. Bradycardia. Did not have chest pain. No palpitation. I was called for evaluation, had a long visit with the patient and her family. Apparently she's been having progressive weakness multiple falls had injury to her left arm. Home Medications & Allergies Allergies: Coded Allergies: No Known Drug Allergies (Unverified , 08/15/19) Home Medication List Reviewed: Yes [id number] Hx Patient Social History Marital Status: Employed/Student: retired Alcohol Use: Denies Use Recreational Drug Use: No Smoking Status: Never a Smoker 2nd Hand Smoke Exposure: No Recent Foreign Travel: No Recent Infectious Disease Expo: No Recent Hopitalizations: No Immunizations Up To Date Tetanus Booster (TDap): Unknown Past Medical History Discussed below Family Medical History Family Medical Hx Noncontributory Review of Systems-General Review of Systems Constitutional: see HPI, dizziness, malaise, weakness EENTM: see HPI, no symptoms reported Respiratory: see HPI, dyspnea on exertion Cardiovascular: see HPI; No chest pain, No edema, No Hx of Intervention, No pal pitations, No syncope, No vascular heart diseas, No other Gastrointestinal: no symptoms reported, see HPI Genitourinary: no symptoms reported, see HPI Musculoskeletal: see HPI, back pain, joint pain, muscle stiffness Skin: no symptoms reported, see HPI Psychiatric/Neurological: No Symptoms Reported, See HPI Reviewed Test Results Reviewed Test Results Lab Laboratory Tests Test 04/01/20 13:11 04/01/20 13:27 Range/Units White Blood Count 6.5 4.3-11.0 10^3/uL Red Blood Count 5.36 4.35-5.85 10^6/uL Hemoglobin 16.2 H 11.5-16.0 G/DL Hematocrit 48 35-52 % Mean Corpuscular Volume 90 80-99 FL Mean Corpuscular Hemoglobin 30 25-34 PG Mean Corpuscular Hemoglobin Concent 34 32-36 G/DL Red Cell Distribution Width 13.2 10.0-14.5 % Platelet Count 237 130-400 10^3/uL Mean Platelet Volume 10.4 7.4-10.4 FL Neutrophils (%) (Auto) 56 42-75 % Lymphocytes (%) (Auto) 30 12-44 % Monocytes (%) (Auto) 12 0-12 % Eosinophils (%) (Auto) 2 0-10 % Basophils (%) (Auto) 0 0-10 % Neutrophils # (Auto) 3.6 1.8-7.8 X 10^3 Lymphocytes # (Auto) 2.0 1.0-4.0 X 10^3 Monocytes # (Auto) 0.8 0.0-1.0 X 10^3 Eosinophils # (Auto) 0.1 0.0-0.3 10^3/uL Basophils # (Auto) 0.0 0.0-0.1 10^3/uL Sodium Level 142 135-145 MMOL/L Potassium Level 4.3 3.6-5.0 MMOL/L Chloride Level 112 H 98-107 MMOL/L Carbon Dioxide Level 21 21-32 MMOL/L Anion Gap 9 5-14 MMOL/L Blood Urea Nitrogen 21 H 7-18 MG/DL Creatinine 0.94 0.60-1.30 MG/DL Estimat Glomerular Filtration Rate 56 BUN/Creatinine Ratio 22 Glucose Level 87 70-105 MG/DL Calcium Level 9.4 8.5-10.1 MG/DL Corrected Calcium 9.3 8.5-10.1 MG/DL Magnesium Level 2.6 H 1.6-2.4 MG/DL Total Bilirubin 0.7 0.1-1.0 MG/DL Aspartate Amino Transf (AST/SGOT) 25 5-34 U/L Alanine Aminotransferase (ALT/SGPT) 18 0-55 U/L Alkaline Phosphatase 65 40-136 U/L Troponin I < 0.028 <0.028 NG/ML B-Type Natriuretic Peptide 180.3 H <100.0 PG/ML Total Protein 7.1 6.4-8.2 GM/DL Albumin 4.1 3.2-4.5 GM/DL Thyroid Stimulating Hormone (TSH) 1.88 0.35-4.94 UIU/ML Glucometer 102 70-110 MG/DL Physical Exam Physical Exam Vital Signs Vital Signs - First Documented 04/01/20 04/01/20 13:05 13:45 Temp 36.4 Pulse 37 Resp 18 B/P (MAP) 203/72 (115) Pulse Ox 95 O2 Delivery Room Air Capillary Refill : Less Than 3 Seconds Height, Weight, BMI Height: '" Weight: lbs. oz. kg; 25.00 BMI Method: General Appearance: No Apparent Distress, WD/WN Eyes: Bilateral Eye Normal Inspection, Bilateral Eye PERRL, Bilateral Eye EOMI HEENT: PERRL/EOMI, TMs Normal, Normal ENT Inspection, Pharynx Normal, Moist Mucous Membranes Neck: Full Range of Motion, Normal Inspection, Non Tender, Supple, Carotid Bruit Respiratory: Chest Non Tender, Normal Breath Sounds, No Accessory Muscle Use, No Respiratory Distress Cardiovascular: No Edema, No Gallop, No JVD, No Murmur, Normal Peripheral Pulses, Other (bradycardia) Gastrointestinal: Normal Bowel Sounds, No Organomegaly, No Pulsatile Mass, Non Tender, Soft Back: Normal Inspection, No CVA Tenderness, No Vertebral Tenderness Extremity: Normal Inspection, Non Tender, No Calf Tenderness, No Pedal Edema Neurologic/Psychiatric: Alert, Oriented x3, No Motor/Sensory Deficits, Normal Mood/Affect Skin: Normal Color, Warm/Dry Lymphatic: No Adenopathy A/P-Cardiology Admission Diagnosis Complete heart block Bradycardia Hypertension Generalized fatigue Assessment/Plan Complete heart block/high-grade AV block with 2-1 and severe bradycardia heart rate ranging between upper 20s and mid-30s. Having generalized weakness and loss of energy. Not taking any medication that could cause bradycardia. Discussed with the patient and her family the management plan recommended dual- chamber pacemaker implantation which will be done today. Generalized weakness and loss of energy probably secondary to severe bradycardia. Hypertension, labile blood pressure. Will adjust medication after pacemaker implant History of multiple falls with nonhealing fracture of her left humerus. Managed by primary team Early dementia. Managed by primary care physician NAJMA GALVAN MD Apr 01, 2020 15:17
[2020-04-01] MEDS ORDERED: NS IV 1000 ML 1,000 ML ONE (15:28)
[2020-04-01] MEDS ORDERED: MIDAZOLAM 5 MG/5 ML (VERSED) VIAL ONE (15:28)
[2020-04-01] MEDS ORDERED: fentaNYL INJECTION 100 MCG/2 ML AMP ONE (15:28)
[2020-04-01] MEDS ORDERED: ceFAZolin INJECTION 1,000 MG ONE (15:28)
[2020-04-01] MEDS ORDERED: HEParin (CATH LAB) 1,000 ML IV ONE (15:29)
[2020-04-01] MEDS ORDERED: LIDOCAINE 1% INJ 20 ML 20 ML VIAL ONE ×2 (15:29)
[2020-04-01] MEDS ORDERED: BACITRACIN 50000 UNITS/500 ML NS IR ONE ×2 (15:30)
[2020-04-01] MEDS ORDERED: ceFAZolin INJECTION 1,000 MG VIAL IV ONE (15:30)
[2020-04-01] MEDS ORDERED: BACITRACIN INJECTION 50,000 UNIT, SODIUM CHLORIDE 0.9% IRRIGATIO 500 ML IR ONE ×2 (15:30)
--- NOTE | 2020-04-01 16:06 | NUR ---
TO [employer] FOR PACEMAKER. [employer] CALLEAD AND GOT PHONE CONSENT FROM DAUGHTER
--- NOTE | 2020-04-01 16:28 | Cardiac Procedure Note-CS/ASA ---
Pre-Procedure Note Pre-Op Procedure Note H&P Reviewed The H&P was reviewed, patient examined and no changes noted. Date H&P Reviewed: Apr 01, 2020 Time H&P Reviewed: 16:28 Conscious Sedation Pre-Proced Time 16:28 ASA Score 3 For ASA 3 and 4: Consider anesthesia and medical clearance. Also, for patients with a history of failed moderate sedation consider anesthesia. Airway Lungs Heart ASA score ASA 1: a normal healthy patient ASA 2: a patient with a mild systemic disease (mid diabetes, controlled hypertension, obesity x ASA 3: a patient with a severe systemic disease that limits activity (angina, COPD, prior Myocardial infarction) ASA 4: a patient with an incapacitating disease that is a constant threat to life (CHF, renal failure) ASA 5: a moribund patient not expected to survive 24 hrs. (ruptured aneurysm) ASA 6: a declared brain- patient whose organs are being harvested. For emergent operations, add the letter E after the classification Mallampati Classification Grade 3 Sedation Plan Analgesia, Amnesia, Plan communicated to team members, Discussed options with patient/fam, Discussed risks with patient/fam The patient is an appropriate candidate to undergo the planned procedure, sedation, and anesthesia. The patient immediately re-assessed prior to indication. NAJMA GALVAN MD Apr 01, 2020 16:28
--- OUTSIDE RECORDS SUMMARY | 2020-04-01 16:42 | XMS REPORT | Continuity of Care Document ---
Author Organization Unknown Address Unknown Phone Unavailable Allergies Active Description Code Type Severity Reaction Onset Reported/Identified Relationship to Patient Clinical Status Yes No Known Drug Allergies [id number] Drug Allergy Unknown N/A 08/15/2019 Medications There [...] SUBS FOR 12/08/2019 PEE SPARKSP Ot S52.692D OTH FX LOWER END OF LEFT ULNA, SUBS FOR 12/08/2019 KING PEE MARCUS Ot S52.692D OTH FX LOWER END OF LEFT ULNA, SUBS FOR 12/08/2019 MAYUR SKAGGS MD, Ot M79.602 PAIN IN LEFT ARM 12/08/2019 MAYUR SKAGGS MD, Ot S42.202A UNSP FRACTURE OF UPPER END OF LEFT HUMER 12/08/2019 MAYUR SKAGGS MD Ot S42.302A UNSP FRACTURE OF SHAFT OF HUMERUS, LEFT 12/08/2019 MAYUR SKAGGS MD, Ot W18.39XA OTHER FALL ON SAME LEVEL, INITIAL ENCOUN 12/17/2019 MAYUR SKAGGS MD, Ot M79.602 PAIN IN LEFT ARM 12/17/2019 MAYUR SKAGGS MD, Ot S42.202A UNSP FRACTURE OF UPPER END OF LEFT HUMER 12/17/2019 MAYUR SKAGGS MD, Ot S42.302A UNSP FRACTURE OF SHAFT OF HUMERUS, LEFT 12/17/2019 MAYUR SKAGGS MD, Ot W18.39XA OTHER FALL ON SAME LEVEL, INITIAL ENCOUN Procedures There is no data. Results Test [...] 17:28 TROPONIN I FS < 0.30 <0.30 Complete blood count (CBC) with automate d white blood cell (WBC) differential - 04/01/20 13:11 Blood leukocytes automated count (number/volume) 6.5 10*3/uL 4.3-11.0 Blood erythrocytes automated count (number/volume) 5.36 10*6/uL 4.35-5.85 Venous blood hemoglobin measurement (mass/volume) 16.2 g/dL 11.5-16.0 Blood hematocrit (volume fraction) 48 % 35-52 Automated erythrocyte mean corpuscular volume 90 [ foz_us] 80-99 Automated erythrocyte mean corpuscular h emoglobin (mass per erythrocyte) 30 pg 25-34 Automated erythrocyte mean corpuscular h emoglobin concentration measurement (mass/volume) 34 g/dL 32-36 Automated erythrocyte distribution width ratio 13. 2 % 10.0- 14.5 Automated blood platelet count (count/volume) 237 10*3/uL 130-400 Automated blood platelet mean volume measurement 10.4 [foz_us] 7.4-10.4 Automated blood neutrophils/100 leukocytes 56 % 42-75 Automated blood lymphocytes/100 leukocytes 30 % 12-44 Blood monocytes/100 leukocytes 12 % 0-12 Automated blood eosinophils/100 leukocytes 2 % 0-10 Automated blood basophils/100 leukocytes 0 % 0-10 Blood neutrophils automated count (number/volume) 3.6 10*3 1.8-7.8 Blood lymphocytes automated count (number/volume) 2.0 10*3 1.0-4.0 Blood monocytes automated count (number/volume) 0. 8 10*3 0.0-1.0 Automated eosinophil count 0.1 10*3/uL 0 .0-0.3 Automated blood basophil count (count/volume) 0.0 10*3/uL 0.0-0.1 Comprehensive metabolic panel - 04/01/20 13:11 Serum or plasma sodium measurement (moles/volume) 142 mmol/L 135-145 Serum or plasma potassium measurement (moles/volume) 4.3 mmol/L 3.6-5.0 Serum or plasma chloride measurement (moles/volume) 112 mmol/L 98-107 Carbon dioxide 21 mmol/L 21-32 Serum or plasma anion gap determination (moles/volume) 9 mmol/L 5-14 Serum or plasma urea nitrogen measurement (mass/volume ) 21 mg/dL 7-18 Serum or plasma creatinine measurement (mass/volume) 0.94 mg/dL 0.60-1.30 Serum or plasma urea nitrogen/creatinine mass ratio 22 NRG Serum or plasma creatinine measurement w ith calculation of estimated glomerular filtration rate 56 NRG Serum or plasma glucose measurement (mass/volume) 87 mg/dL 70-105 Serum or plasma calcium measurement (mass/volume) 9.4 mg/dL 8.5-10.1 Serum or plasma total bilirubin measurement (mass/volu me) 0.7 mg/dL 0.1-1.0 Serum or plasma alkaline phosphatase judy surement (enzymatic activity/volume) 65 U/L 40-136 Serum or plasma aspartate aminotransfera se measurement (enzymatic activity/volume) 25 U/L 5-34 Serum or plasma alanine aminotransferase measurement (enzymatic activity/volume) 18 U/L 0-55 Serum or plasma protein measurement (mass/volume) 7.1 g/dL 6.4-8.2 Serum or plasma albumin measurement (mass/volume) 4.1 g/dL 3.2-4.5 CALCIUM CORRECTED 9.3 mg/dL 8.5-10.1 Magnesium - 04/01/20 13:11 Magnesium 2.6 mg/dL 1.6-2.4 Serum or plasma troponin i.cardiac measu rement (mass/volume) - 04/01/20 13:11 Serum or plasma troponin i.cardiac measurement (mass/v olume) < ng/mL <0.028 THYROID STIMULATING HORMONE - 04/01/20 1 3:11 THYROID STIMULATING HORMONE 1.88 u[iU]/mL 0.35-4.94 Serum or plasma lithium measurement (mol es/volume) - 04/01/20 13:11 BNP PT 180.3 pg/mL <100.0 Capillary blood glucose measurement by g lucometer (mass/volume) - 04/01/20 13:27 Capillary blood glucose measurement by glucometer (mas s/volume) 102 mg/dL 70-110 Encounters ACCT No. Visit Date/Time Discharge Status Pt. Type Provider Facility Loc./Unit Complaint [id number] 12/08/2019 16:35:00 020 19:30:00 DIS Emergency MAYUR SKAGGS MD Via [facility] ER FS FALL; LT ARM PAIN [id number] 11/05/2019 08:15:00 23:59:59 CLS Outpatient PEE SPARKS Via [facility] RAD FS S52.692D [id number] 10/07/2019 09:08:00 23:59:59 CLS Outpatient PEE SPARKS Via [facility] RAD FS S52.692D [id number] 09/09/2019 09:28:00 23:59:59 CLS Outpatient PEE SPARKS Via [facility] RAD FS S52.692D [id number] 08/26/2019 08:58:00 23:59:59 CLS Outpatient PEE SPARKS Via [facility] RAD FS S52.692A [id number] 08/15/2019 11:37:00 14:24:00 DIS Emergency TAWANNA MONACO DO [facility] ER FS LT ARM INJ [id number] 04/01/2020 13:31:00 Document Registration
[2020-04-01] MEDS ORDERED: NS IV 1000 ML 1,000 ML IV SCH (17:44)
[2020-04-01] MEDS ORDERED: PATIENT MAY USE OWN MEDS, ALL PO SCH (17:45)
[2020-04-01] MEDS ORDERED: meTOprolol 5 MG/5 ML (LOPRESSOR) VIAL ONE (17:45)
--- NOTE | 2020-04-01 17:53 | Permanent Pacemaker Implant ---
Dual Chamber Pacemaker Implant PROCEDURE PHYSICIAN: Najma Fried DUAL CHAMBER PACEMAKER IMPLANTATION: DATE OF PROCEDURE: 04/01/20 INDICATION: Symptomatic bradycardia, complete heart block PREOPERATIVE DIAGNOSIS: Complete heart block POSTOPERATIVE DIAGNOSIS: Complete heart block HISTORY: Dual-chamber permanent pacemaker was recommended. PROCEDURE PERFORMED: 1. Dual-chamber permanent pacemaker implantation. 2. Fluoroscopy. 3. Central venous access. 4. Left upper extremity venogram ANESTHESIA: Local anesthesia, conscious sedation. COMPLICATIONS: None. ESTIMATED BLOOD LOSS:20 mL. SPECIMENS: None. ORAL ANTICOAGULATION: None. FLUOROSCOPY TIME: FLUOROSCOPY DOSE: CONTRAST DOSE: PROCEDURE DETAILS: The patient is a 89 female and after all of the patients questions were answered, the patient was brought to the EP Lab. The patient's left chest was prepped and draped in sterile fashion. I was initially unable to access the subclavian vein, left upper extremity venogram was done then using fluoroscopy guidance I was able to access the subclavian vein. A 2 inch horizontal incision was made 1 cm below the clavicle and dissection carried down to the pectoralis fascia. Using the modified Seldinger technique and under fluoroscopy guidance, the anterior aspect of the left axillary vein was accessed 2 times. The J wires were secured to the drapes with a mosquito clamp. A 7-Tajik sheath was introduced over one of the J-wires. The RV lead was then inserted. The RV lead was directed across the tricuspid valve to the apical septal portion of the right ventricle. The position was checked in YEIMI and MARIE views. The screw was deployed and the lead connected to the lead java programmer. Close sensing and pacing thresholds were obtained. Diaphragmatic pacing was ruled out. The lead was secured with 2-0 silk ties to the underlying muscle and fascia. Next, a 7-Tajik sheath was introduced through the remaining J-wire. An atrial lead was then introduced and guided to the level of the right appendage. The screw was deployed and the lead was connected to the interrogator. Good sensing and pacing thresholds were obtained. Diaphragmatic pacing was ruled out. The leads were secured with 2-0 silk ties to the underlying muscle and fascia. The leads were connected to the device in a hermetic fashion. The device and leads were placed in the pocket. Aggressive irrigation with saline solution was done. The device was secured to the underlying muscle and fascia with a 2-0 silk tie. interrogation of the device revealed good integrity of all the leads and good connections. The wound was then closed using 2 layers. The first layer was interrupted 2-0 absorbable Vicryl suture. The last layer was a single subcuticular layer with 4- 0 Vicryl suture. Half inch Steri-Strips and a small dressing were then applied to the wound. The patient tolerated the procedure well and was returned to the recovery room in stable condition with stable vital signs. DEVICE INFORMATION: ANALI Michele DR MRI [id number] RA LEAD: [id number] RV LEAD: [id number] PER-OPERATIVE DEVICE INTERROGATION: Good sensing and capture activity IMMEDIATE POSTOPERATIVE DEVICE INTERROGATION: Atrial lead P wave 1.0, pacing impedance 475, pacing threshold is 0.75 at 0.4 ms Ventricular lead R-wave 3.6 mV, impedance 798, pacing threshold is 0.75 at 0.4 ms PLAN: The patient transferred to the ICU. We will continue with two more doses of IV antibiotics. We will check a chest x-ray and interrogate the device in the morning. The patient will continue on oral antibiotics for 5 days. CONCLUSION: Successful implantation of dual-chamber pacemaker with no complications Venogram of the left upper extremity FINAL DIAGNOSIS: Complete heart block Bradycardia Generalized fatigue Hypertension NAJMA FRIED MD Apr 01, 2020 17:53
[2020-04-01] MEDS ORDERED: lisINopril 20 MG (PRINIVIL) TABLET PO NR (18:00)
--- NOTE | 2020-04-01 18:38 | Diagnostic Imaging Report ---
EXAMINATION: Chest 1 view. HISTORY: Post pacemaker placement. COMPARISON: Chest radiograph on 04/01/2020 at 1:40 PM. FINDINGS: There has been interval placement of a left pectoral dual-chamber pacemaker with leads in the appropriate configuration. The lung volumes are normal. No focal consolidation is seen. No large pleural effusion or pneumothorax is seen. The cardiomediastinal silhouette is enlarged. No acute osseous abnormality is seen. IMPRESSION: 1. Interval placement of a left pectoral dual-chamber pacemaker. Leads appear in appropriate configuration. No evidence of pneumothorax. 2. Cardiomegaly. Dictated by: Dictated on workstation # [id number]
[2020-04-01 18:45] VITALS: BP 193/93
[2020-04-01 18:47] VITALS: BP 193/93
[2020-04-01 19:00] VITALS: BP 193/96
--- NOTE | 2020-04-01 19:10 | NUR ---
THIS NURSE NOTIFIED DR LEVI PT BP IS 193/90. ORDERS GIVEN FOR MEDICATION AND TO MONITOR FOR A COUPLE MORE HOURS. NIGHT NURSE NOTIFIED.
[2020-04-01 20:00] VITALS: BP 180/90
--- OUTSIDE RECORDS SUMMARY | 2020-04-01 20:10 | XMS REPORT | Continuity of Care Document ---
Author Organization Unknown Address Unknown Phone Unavailable Allergies Active Description Code Type Severity Reaction Onset Reported/Identified Relationship to Patient Clinical Status Yes No Known Drug Allergies [id number] Drug Allergy Unknown N/A 08/15/2019 Medications There [...] Status Pt. Type Provider Facility Loc./Unit Complaint [id number] 12/08/2019 16:35:00 020 19:30:00 DIS Emergency MAYUR SKAGGS MD [facility] ER FS FALL; LT ARM PAIN [id number] 11/05/2019 08:15:00 23:59:59 CLS Outpatient PEE SPARKS [facility] RAD FS S52.692D [id number] 10/07/2019 09:08:00 23:59:59 CLS Outpatient PEE SPARKS [facility] RAD FS S52.692D [id number] 09/09/2019 09:28:00 23:59:59 CLS Outpatient PEE SPARKS [facility] RAD FS S52.692D [id number] 08/26/2019 08:58:00 23:59:59 CLS Outpatient PEE SPARKS [facility] RAD FS S52.692A [id number] 08/15/2019 11:37:00 14:24:00 DIS Emergency TAWANNA MONACO DO [facility] ER FS LT ARM INJ [id number] 04/01/2020 13:31:00 Document Registration
[2020-04-01 20:30] VITALS: BP 172/86
[2020-04-01] MEDS: ceFAZolin INJECTION 1,000 MG in WATER (STERILE) FOR INJECTION 10 ML IV SCH (22:32)
[2020-04-01] MEDS ORDERED: ACETAMINOPHEN 500 MG TAB (TYLENOL) PO PRN (22:45)
[2020-04-02] VITALS: BP 148/89
[2020-04-02 02:43] LABS: HEMOGLOBIN 16.5 G/DL (11.5-16.0); MEAN PLATELET VOLUME 10.5 FL (7.4-10.4); RED CELL DISTRIBUTION WIDTH 13.2 % (10.0-14.5); WHITE BLOOD COUNT 13.8 10^3/uL (4.3-11.0)
[2020-04-02 03:09] LABS: ALANINE AMINOTRANSFERASE 18 U/L (0-55); ALKALINE PHOSPHATASE 70 U/L (40-136); BILIRUBIN,TOTAL 0.7 MG/DL (0.1-1.0); BUN/CREATININE RATIO 19; CALCIUM 8.9 MG/DL (8.5-10.1); CARBON DIOXIDE 20 MMOL/L (21-32); CHLORIDE 108 MMOL/L (98-107); CREATININE SERUM 0.79 MG/DL (0.60-1.30); GFR ESTIMATED > 60; GLUCOSE 129 MG/DL (70-105); POTASSIUM 5.1 MMOL/L (3.6-5.0); SODIUM 140 MMOL/L (135-145); TOTAL PROTEIN 6.7 GM/DL (6.4-8.2)
[2020-04-02 04:00] VITALS: BP 132/81
[2020-04-02] MEDS: ceFAZolin INJECTION 1,000 MG in WATER (STERILE) FOR INJECTION 10 ML IV SCH (06:24)
[2020-04-02] MEDS ORDERED: MTP25TSR PO (06:54)
[2020-04-02] MEDS ORDERED: CEFU500T63 PO (06:54)
[2020-04-02 08:00] VITALS: BP 131/58
--- NOTE | 2020-04-02 08:30 | Cardiology Progress Note ---
Subjective Date Seen by Provider: Apr 02, 2020 Time Seen by Provider: 08:29 Subjective/Events-last exam Patient is laying down in bed, feeling well, site is healing well Pacemaker checked out good sensing and capture activity, chest x-ray showed good results Review of Systems General: No Chills, No Night Sweats, No Fatigue, No Malaise, No Appetite, No Other HEENT: No Head Aches, No Visual Changes, No Eye Pain, No Ear Pain, No Dysphasia, No Sinus Congestion, No Post Nasal Drip, No Sore Throat, No Other Pulmonary: No Dyspnea, No Cough, No Pleuritic Chest Pain, No Other Cardiovascular: No: Chest Pain, Palpitations, Orthopnea, Paroxysmal Noc. Dyspnea, Edema, Lt Headedness, Other Objective-Cardiology Exam Last Set of Vital Signs Vital Signs 04/02/20 08:00 Pulse 60 Resp 20 B/P (MAP) 131/58 (82) O2 Delivery Room Air Capillary Refill : Less Than 3 Seconds I&O Intake and Output 04/02/20 00:00 Intake Total 100 ml Balance 100 ml Intake Oral 100 ml # Voids 2 Daily Weight Change No No General: Alert, Oriented X3, Cooperative HEENT: Atraumatic, PERRLA Neck: Supple, No JVD, No Thyromegaly Lungs: Clear to Auscultation, Normal Air Movement Heart: Regular Rate, Normal S1, Normal S2, No Murmurs Abdomen: Normal Bowel Sounds, Soft, No Tenderness, No Hepatosplenomegaly, No Masses Extremities: No Clubbing, No Cyanosis, No Edema, Normal Pulses, No Tenderness/Swelling Skin: No Rashes, No Breakdown, No Significant Lesion Neuro: Normal Gait, Normal Speech, Strength at 5/5 X4 Ext, Normal Tone, Sensation Intact Psych/Mental Status: Mental Status NL, Mood NL Results Lab Laboratory Tests 04/01/20 13:11 04/02/20 02:27 A/P-Cardiology Admission Diagnosis Complete heart block Bradycardia Hypertension Generalized fatigue Assessment/Plan Complete heart block, status post dual-chamber pacemaker implantation with no complication. Doing well. Continue with Ceftin for 5 more days Generalized weakness and loss of energy probably secondary to severe bradycard ia. Monitor after pacemaker Hypertension, labile blood pressure. Started on Toprol-XL 25 mg daily History of multiple falls with nonhealing fracture of her left humerus. Managed by primary team Early dementia. Managed by primary care physician Clinical Quality Measures DVT/VTE Risk/Contraindication: Risk Factor Score Per Nursin RFS Level Per Nursing on Admit: 4+=Very High NAJMA GALVAN MD Apr 02, 2020 8:30 am
--- NOTE | 2020-04-02 08:32 | Discharge Inst-Simple/Standard ---
Discharge Inst-Standard Reconcile Patient Problems Problems Reviewed?: Yes Discharge Medications New, Converted or Re-Newed RX: Transmitted to Pharmacy Patient Instructions/Follow Up Plan of Care/Instructions/FU: Appointment with Dr. GALVAN's office next week for wound check Activity as Tolerated: Yes Discharge Diet: No Restrictions Planned Outpatient Orders/Ref. Pneu Vac Indicated: Yes NAJMA GALVAN MD Apr 02, 2020 8:32 am
[2020-04-02] MEDS ORDERED: lisINopril 20 MG (PRINIVIL) TABLET PO SCH (09:00)
--- NOTE | 2020-04-02 09:13 | NUR ---
x2 IV's removed by this nurse, tip intact, gauze and tape applied to site. Entire discharge packet discussed with patient. Patients son is on his way here, he is her ride home. This nurse will go over discharge packet with patients son, he is her DPOA and patient states that he helps her to keep track of everything. Att patient denies having any further questions, this nurse discussed her new medications with her and restrictions that should be followed per physician. This nurse scheduled a follow up appointment next week for a wound check with and patient has an appointment scheduled already on May 01 for a pacemaker check with . Waiting for sons arrival, this nurse spoke to lashaun Tripp on the phone and he should be arriving any time.
--- NOTE | 2020-04-02 09:45 | NUR ---
Patients son Qasim has arrived, he is patients ride home. This nurse took patient to entrance via wheel chair and assisted her into private vehicle. This nurse went over discharge paperwork with Qasim as well per patients request. Patient leaving floor at 0945
[2020-04-03] MEDS ORDERED: CLOP75TA28 PO (04:45)
[2020-04-03] MEDS ORDERED: METO-333 PO (04:45)
[2020-04-03] MEDS ORDERED: DILT120C53 PO (04:45)
[2020-04-03] MEDS ORDERED: SIMV20TA26 PO (04:45)
[2020-04-03] MEDS ORDERED: ASPI-999 PO (04:45)
[2020-04-03] MEDS ORDERED: GABA-490 PO (04:45)
[2020-04-03] MEDS ORDERED: DULO60CA59 PO (04:45)
[2020-04-03] MEDS ORDERED: ISM60TCR PO (04:45)
[2020-04-03] MEDS ORDERED: MONT10TA26 PO (04:45)
[2020-04-03] MEDS ORDERED: BRIN8DRO OU (10:57)
[2020-04-03] MEDS ORDERED: MTP25TSR PO (10:57)
[2020-04-03] MEDS ORDERED: HYDR-83 PO (10:58)
[2020-04-03] MEDS ORDERED: LISI-552 PO (10:58)
[2020-04-03] MEDS ORDERED: HYDR-4342 PO (11:01)
== END 2020-04-02 09:45 | disposition home or self-care (01) ==
LOC: EDUNIT# 13:05 → ER 13:06 → CATH 15:45 → ICU 18:25 → CATH 04-02 09:45
PROVIDERS: ATTEND Internal Medicine Cardiovascular Disease
DX: I44.2 Atrioventricular block, complete (principal); I10 Essential (primary) hypertension; R29.6 Repeated falls; R00.1 Bradycardia, unspecified; R53.83 Other fatigue; F03.90 Unspecified dementia, unspecified severity, without behavioral disturbance, psychotic disturbance, mood disturbance, and anxiety; E78.00 Pure hypercholesterolemia, unspecified; R25.1 Tremor, unspecified; Z79.899 Other long term (current) drug therapy
CPT/HCPCS: 33208; 71045; 75820; 80053 ×2; 82962; 83735; 83880; 84443; 84484; 85025; 85027; 93005 ×2; 93041; 99285; C1785; C1898 ×2; 36415

== ENCOUNTER 2020-04-02 21:57 | Inpatient (IN) | payer MEDICARE ==
[~2020-04-02] VITALS: Ht 150 cm; Wt 60.9 kg
[~2020-04-02 21:57] MED LIST changes: +BRIN8DRO; +CEFU500T63 PO; +LISI-552; +MTP25TSR PO; +SIMV20TA26
--- OUTSIDE RECORDS SUMMARY | 2020-04-02 22:03 | XMS REPORT | Continuity of Care Document ---
Author Organization Unknown Address Unknown Phone Unavailable Allergies Active Description Code Type Severity Reaction Onset Reported/Identified Relationship to Patient Clinical Status Yes No Known Drug Allergies [id number] Drug Allergy Unknown N/A 08/15/2019 Medications There [...] by glucometer (mas s/volume) 102 mg/dL 70-110 Automated blood complete blood count (he mogram) panel - 04/02/20 02:27 Blood leukocytes automated count (number/volume) 13.8 10*3/uL 4.3-11.0 Blood erythrocytes automated count (number/volume) 5.55 10*6/uL 4.35-5.85 Venous blood hemoglobin measurement (mass/volume) 16.5 g/dL 11.5-16.0 Blood hematocrit (volume fraction) 49 % 35-52 Automated erythrocyte mean corpuscular volume 89 [ foz_us] 80-99 Automated erythrocyte mean corpuscular h emoglobin (mass per erythrocyte) 30 pg 25-34 Automated erythrocyte mean corpuscular h emoglobin concentration measurement (mass/volume) 34 g/dL 32-36 Automated erythrocyte distribution width ratio 13. 2 % 10.0- 14.5 Automated blood platelet count (count/volume) 228 10*3/uL 130-400 Automated blood platelet mean volume measurement 10.5 [foz_us] 7.4-10.4 Comprehensive metabolic panel - 04/02/20 02:27 Serum or plasma sodium measurement (moles/volume) 140 mmol/L 135-145 Serum or plasma potassium measurement (moles/volume) 5.1 mmol/L 3.6-5.0 Serum or plasma chloride measurement (moles/volume) 108 mmol/L 98-107 Carbon dioxide 20 mmol/L 21-32 Serum or plasma anion gap determination (moles/volume) 12 mmol/L 5-14 Serum or plasma urea nitrogen measurement (mass/volume ) 15 mg/dL 7-18 Serum or plasma creatinine measurement (mass/volume) 0.79 mg/dL 0.60-1.30 Serum or plasma urea nitrogen/creatinine mass ratio 19 NRG Serum or plasma creatinine measurement w ith calculation of estimated glomerular filtration rate > NRG Serum or plasma glucose measurement (mass/volume) 129 mg/dL 70-105 Serum or plasma calcium measurement (mass/volume) 8.9 mg/dL 8.5-10.1 Serum or plasma total bilirubin measurement (mass/volu me) 0.7 mg/dL 0.1-1.0 Serum or plasma alkaline phosphatase judy surement (enzymatic activity/volume) 70 U/L 40-136 Serum or plasma aspartate aminotransfera se measurement (enzymatic activity/volume) 30 U/L 5-34 Serum or plasma alanine aminotransferase measurement (enzymatic activity/volume) 18 U/L 0-55 Serum or plasma protein measurement (mass/volume) 6.7 g/dL 6.4-8.2 Serum or plasma albumin measurement (mass/volume) 4.0 g/dL 3.2-4.5 CALCIUM CORRECTED 8.9 mg/dL 8.5-10.1 Encounters ACCT No. Visit Date/Time Discharge Status Pt. Type Provider Facility Loc./Unit Complaint [id number] 04/01/2020 15:45:00 09:45:00 DIS Outpatient COLE KIRK, NAJMA Quiles [facility] CATH PACEMAKER [id number] 12/08/2019 16:35:00 19:30:00 DIS Emergency SHARIFA KIRK, MAYUR Velasquez [facility] ER FS FALL; LT ARM PAIN [id number] 11/05/2019 08:15:00 23:59:59 CLS Outpatient PEE SPARKS [facility] RAD FS S52.692D [id number] 10/07/2019 09:08:00 23:59:59 CLS Outpatient PEE SPARKS [facility] RAD FS S52.692D [id number] 09/09/2019 09:28:00 23:59:59 CLS Outpatient PEE SPARKS [facility] RAD FS S52.692D [id number] 08/26/2019 08:58:00 23:59:59 CLS Outpatient PEE SPARKS [facility] RAD FS S52.692A [id number] 08/15/2019 11:37:00 14:24:00 DIS Emergency TAWANNA MONACO DO [facility] ER FS LT ARM INJ
[2020-04-02] MEDS ORDERED: ACETAMINOPHEN 500 MG TAB (TYLENOL) PO PRN (22:15)
--- NOTE | 2020-04-02 22:30 | NUR ---
Pt's 22 g IV started in R AC, not L AC as charted. Pt arrived to ED with 22g in L hand started by EMS.
[2020-04-02 22:47] LABS: BASOPHILS % (AUTO) 0 % (0-10); EOSINOPHILS % (AUTO) 0 % (0-10); HEMATOCRIT 47 % (35-52); HEMOGLOBIN 16.4 G/DL (11.5-16.0); LYMPHOCYTES # (AUTO) 1.1 X 10^3 (1.0-4.0); LYMPHOCYTES % (AUTO) 8 % (12-44); MEAN CORPUSCULAR HEMOGLOBIN 30 PG (25-34); MEAN CORPUSCULAR HGB CONC 35 G/DL (32-36); MEAN CORPUSCULAR VOLUME 87 FL (80-99); MEAN PLATELET VOLUME 12.3 FL (7.4-10.4); MONOCYTES # (AUTO) 2.2 X 10^3 (0.0-1.0); MONOCYTES % (AUTO) 15 % (0-12); NEUTROPHILS % (AUTO) 77 % (42-75); PLATELET COUNT 246 10^3/uL (130-400); RED CELL DISTRIBUTION WIDTH 13.8 % (10.0-14.5); WHITE BLOOD COUNT 14.3 10^3/uL (4.3-11.0)
[2020-04-02 22:49] LABS: BILIRUBIN,URINE NEGATIVE (NEGATIVE); CLARITY,URINE SL CLOUDY; COLOR,URINE YELLOW; GLUCOSE, URINE (UA) NEGATIVE (NEGATIVE); KETONES,URINE NEGATIVE (NEGATIVE); LEUKOCYTE ESTERASE ,URINE NEGATIVE (NEGATIVE); NITRITE,URINE NEGATIVE (NEGATIVE); PH,URINE 5.5 (5-9); PROTEIN,URINE 2+ (NEGATIVE)
[2020-04-02 22:56] LABS: BACTERIA,URINE TRACE /HPF; RBC,URINE RARE /HPF; SQUAMOUS EPITHELIAL CELL,UR RARE /HPF; WBC,URINE RARE /HPF
[2020-04-02 23:04] LABS: BAND NEUTROPHILS 0 %; NEUTROPHILS % (MANUAL) 81 %
[2020-04-02 23:05] LABS: BASOPHILS % (MANUAL) 0 %; EOSINOPHILS % (MANUAL) 0 %; ERYTHROCYTE SEDIMENTATION RATE 1 MM/HR (0-30); LYMPHOCYTES % (MANUAL) 6 %; MONOCYTES % (MANUAL) 11 %; PLATELET CLUMPS SLIGHT; REACTIVE LYMPHOCYTES 2 %; TOXIC GRANULATION/VACUOLAZATIO 1+
[2020-04-02 23:21] LABS: FIBRIN DEGRADATION PRODUCTS 1.78 UG/ML (0.00-0.49); INR 1.1 (0.8-1.4); PROTHROMBIN TIME PATIENT 14.7 SEC (12.2-14.7)
--- NOTE | 2020-04-02 23:22 | NUR ---
Called pt's son to update pt status. Son wanted to be sure dr knew pt used bone stimulator on L arm today. Dr. Ozuna notified.
[2020-04-02] MEDS ORDERED: cefTRIAXone FOR IV USE 1,000 MG in WATER (STERILE) FOR INJECTION 10 ML IV ONE (23:30)
[2020-04-02] MEDS ORDERED: AZITHROMYCIN INJECTION 500 MG in NS (IVPB) 250 ML IV ONE (23:30)
[2020-04-03] LABS: ALBUMIN 3.7 GM/DL (3.2-4.5); CHLORIDE 109 MMOL/L (98-107); POTASSIUM 4.1 MMOL/L (3.6-5.0); SODIUM 138 MMOL/L (135-145)
[2020-04-03 00:01] LABS: CALCIUM 8.8 MG/DL (8.5-10.1)
[2020-04-03 00:03] LABS: GLUCOSE 127 MG/DL (70-105); TOTAL PROTEIN 6.3 GM/DL (6.4-8.2)
[2020-04-03 00:04] LABS: BILIRUBIN,TOTAL 1.2 MG/DL (0.1-1.0); CARBON DIOXIDE 18 MMOL/L (21-32)
[2020-04-03 00:06] LABS: ALKALINE PHOSPHATASE 61 U/L (40-136)
[2020-04-03 00:07] LABS: CREATININE SERUM 0.76 MG/DL (0.60-1.30); GFR ESTIMATED > 60
[2020-04-03 00:08] LABS: BUN/CREATININE RATIO 21
[2020-04-03 00:09] LABS: ALANINE AMINOTRANSFERASE 12 U/L (0-55)
[2020-04-03] MEDS ORDERED: NS IV 1000 ML 1,000 ML IV SCH (00:37)
--- NOTE | 2020-04-03 01:15 | NUR ---
PT'S SON CONTACTED AND GIVEN UPDATE ON PT CONDITION AND PLANS TO ADMIT. SON INFORMED THAT HE CAN CALL THE FLOOR TOMORROW AND THEY WILL BE ABLE TO GIVE HIM UPDATE AND GIVE HIM THE PT ROOM NUMBER.
--- OUTSIDE RECORDS SUMMARY | 2020-04-03 01:52 | XMS REPORT | Continuity of Care Document ---
Author Organization Unknown Address Unknown Phone Unavailable Allergies Active Description Code Type Severity Reaction Onset Reported/Identified Relationship to Patient Clinical Status Yes No Known Drug Allergies [id number] Drug Allergy Unknown N/A 08/15/2019 Medications There [...] OF LEFT ULNA, SUBS FOR 12/08/2019 PEE SAPRKS Ot S52.692D OTH FX LOWER END OF [...] g/dL 3.2-4.5 CALCIUM CORRECTED 8.9 mg/dL 8.5-10.1 Complete blood count (CBC) with automate d white blood cell (WBC) differential - 04/02/20 22:30 Blood leukocytes automated count (number/volume) 14.3 10*3/uL 4.3-11.0 Blood erythrocytes automated count (number/volume) 5.40 10*6/uL 4.35-5.85 Venous blood hemoglobin measurement (mass/volume) 16.4 g/dL 11.5-16.0 Blood hematocrit (volume fraction) 47 % 35-52 Automated erythrocyte mean corpuscular volume 87 [ foz_us] 80-99 Automated erythrocyte mean corpuscular h emoglobin (mass per erythrocyte) 30 pg 25-34 Automated erythrocyte mean corpuscular h emoglobin concentration measurement (mass/volume) 35 g/dL 32-36 Automated erythrocyte distribution width ratio 13. 8 % 10.0- 14.5 Automated blood platelet count (count/volume) 246 10*3/uL 130-400 Automated blood platelet mean volume measurement 12.3 [foz_us] 7.4-10.4 Automated blood neutrophils/100 leukocytes 77 % 42-75 Automated blood lymphocytes/100 leukocytes 8 % 12-44 Blood monocytes/100 leukocytes 15 % 0-12 Automated blood eosinophils/100 leukocytes 0 % 0-10 Automated blood basophils/100 leukocytes 0 % 0-10 Blood neutrophils automated count (number/volume) 11.0 10*3 1.8-7.8 Blood lymphocytes automated count (number/volume) 1.1 10*3 1.0-4.0 Blood monocytes automated count (number/volume) 2. 2 10*3 0.0-1.0 Automated eosinophil count 0.0 10*3/uL 0 .0-0.3 Automated blood basophil count (count/volume) 0.0 10*3/uL 0.0-0.1 Complete urinalysis with reflex to cultu re - 04/02/20 22:30 Urine color determination YELLOW NRG Urine clarity determination SL CLOUDY N RG Urine pH measurement by test strip 5.5 5-9 Specific gravity of urine by test strip >= 1.016-1.022 Urine protein assay by test strip, semi-quantitative 2+ NEGATIVE Urine glucose detection by automated test strip NE GATIVE NEGATIVE Erythrocytes detection in urine sediment by light micr oscopy 1+ NEGATIVE Urine ketones detection by automated test strip NE GATIVE NEGATIVE Urine nitrite detection by test strip NEGATIVE NEGATIVE Urine total bilirubin detection by test strip NEGA TIVE NEGATIVE Urine urobilinogen measurement by automated test strip (mass/volume) 0.2 mg/dL < = 1.0 Urine leukocyte esterase detection by dipstick NEG ATIVE NEGATIVE Automated urine sediment erythrocyte cou nt by microscopy (number/high power field) RARE NRG Automated urine sediment leukocyte count by microscopy (number/high power field) RARE NRG Bacteria detection in urine sediment by light microsco py TRACE NRG Squamous epithelial cells detection in u rine sediment by light microscopy RARE NRG Crystals detection in urine sediment by light microsco py NONE NRG Casts detection in urine sediment by light microscopy NONE NRG Mucus detection in urine sediment by light microscopy MODERATE NRG Complete urinalysis with reflex to culture NO NRG Blood lactic acid measurement (moles/vol ume) - 04/02/20 22:30 Blood lactic acid measurement (moles/volume) 1.51 mmol/L 0.50-2.00 Manual absolute plasma cell count - 11/21 22:30 Blood monocytes/100 leukocytes 11 % NRG Manual blood segmented neutrophils/100 leukocytes 81 % NRG Blood band neutrophils/100 leukocytes 0 % NRG Manual blood lymphocytes/100 leukocytes 6 % NRG Manual eosinophils/100 leukocytes in nose 0 % NRG Manual blood basophils/100 leukocytes 0 % NRG Blood lymphocytes variant/100 leukocytes 2 % NRG Blood toxic granules detection by light microscopy 1+ NRG Blood platelet clump detection by light microscopy SLIGHT NRG Erythrocyte sedimentation rate by bernabe gren method - 04/02/20 22:30 Erythrocyte sedimentation rate by westergren method 1 mm 0- 30 PT panel in platelet poor plasma by coag ulation assay - 04/02/20 22:55 Prothrombin time (PT) in platelet poor plasma by coagu lation assay 14.7 s 12.2-14.7 INR in platelet poor plasma or blood by coagulation as say 1.1 0.8-1.4 Activated partial thromboplastin time (a PTT) in platelet poor plasma bycoagulation assay - 04/02/20 22:55 Activated partial thromboplastin time (a PTT) in platelet poor plasma bycoagulation assay 30 s 24-35 Fibrin D-dimer FEU measurement in platel et poor plasma (mass/volume) - 04/02/20 22:55 Fibrin D-dimer FEU measurement in platelet poor plasma (mass/volume) 1.78 ug/mL 0.00-0.49 Comprehensive metabolic panel - 04/02/20 23:38 Serum or plasma sodium measurement (moles/volume) 138 mmol/L 135-145 Serum or plasma potassium measurement (moles/volume) 4.1 mmol/L 3.6-5.0 Serum or plasma chloride measurement (moles/volume) 109 mmol/L 98-107 Carbon dioxide 18 mmol/L 21-32 Serum or plasma anion gap determination (moles/volume) 11 mmol/L 5-14 Serum or plasma urea nitrogen measurement (mass/volume ) 16 mg/dL 7-18 Serum or plasma creatinine measurement (mass/volume) 0.76 mg/dL 0.60-1.30 Serum or plasma urea nitrogen/creatinine mass ratio 21 NRG Serum or plasma creatinine measurement w ith calculation of estimated glomerular filtration rate > NRG Serum or plasma glucose measurement (mass/volume) 127 mg/dL 70-105 Serum or plasma calcium measurement (mass/volume) 8.8 mg/dL 8.5-10.1 Serum or plasma total bilirubin measurement (mass/volu me) 1.2 mg/dL 0.1-1.0 Serum or plasma alkaline phosphatase judy surement (enzymatic activity/volume) 61 U/L 40-136 Serum or plasma aspartate aminotransfera se measurement (enzymatic activity/volume) 24 U/L 5-34 Serum or plasma alanine aminotransferase measurement (enzymatic activity/volume) 12 U/L 0-55 Serum or plasma protein measurement (mass/volume) 6.3 g/dL 6.4-8.2 Serum or plasma albumin measurement (mass/volume) 3.7 g/dL 3.2-4.5 CALCIUM CORRECTED 9.0 mg/dL 8.5-10.1 PROCALCITONIN (PCT) - 04/02/20 23:38 PROCALCITONIN (PCT) 0.20 ng/mL <0.10 Serum or plasma C reactive protein measu rement (mass/volume) - 04/02/20 23:38 Serum or plasma C reactive protein measurement (mass/v olume) 9.40 mg/dL 0.00-0.50 Encounters ACCT No. Visit Date/Time Discharge Status Pt. Type Provider Facility Loc./Unit Complaint [id number] 04/01/2020 15:45:00 09:45:00 DIS Outpatient NAJMA GALVAN MD [facility] CATH PACEMAKER [id number] 12/08/2019 16:35:00 19:30:00 DIS Emergency SHARIFA KIRK, MAYUR Velasquez [facility] ER FS FALL; LT ARM PAIN [id number] 11/05/2019 08:15:00 23:59:59 CLS Outpatient PEE PSARKS [facility] RAD FS S52.692D [id number] 10/07/2019 09:08:00 23:59:59 CLS Outpatient PEE SPARKS [facility] RAD FS S52.692D [id number] 09/09/2019 09:28:00 23:59:59 CLS Outpatient PEE SPARKS [facility] RAD FS S52.692D [id number] 08/26/2019 08:58:00 23:59:59 CLS Outpatient PEE SPARKS [facility] RAD FS S52.692A [id number] 08/15/2019 11:37:00 019 14:24:00 DIS Emergency TAWANNA MONACO DO [facility] ER FS LT ARM INJ [id number] 04/02/2020 22:48:00 Document Registration
--- NOTE | 2020-04-03 02:01 | NUR ---
TELEPHONE REPORT RECEIVED FROM JENNIFER WESTFALL IN ED AT THIS TIME.
[2020-04-03 02:35] VITALS: BP 106/55
--- NOTE | 2020-04-03 02:35 | NUR ---
JESIKA WINTERS admitted to room 425-1, with an admitting diagnosis of LLL PNA, ALTERED MENTAL STATUS, SEPSIS, COVID PUI, on 04/03/20 from ED via [facility], accompanied by STAFF.JESIKA WINTERS introduced to surroundings, call light, bed controls, phone, TV, temperature control, lights, meal times, smoking policy, visitor policy, side rail policy, bathrooms and showers. Patient Rights given to patient in the handbook. JESIKA WINTERS verbalizes understanding that [facility] is not responsible for the loss or damage to any personal effects or valuables that are kept in the patients posession during their hospitalization.
[2020-04-03] MEDS ORDERED: D5 1/2 NS W/KCL 20 MEQ/L 1,000 ML IV ONE (02:47)
[2020-04-03] MEDS: D5 1/2 NS W/KCL 20 MEQ/L 1,000 ML IV SCH ×4 (02:50→23:45)
[2020-04-03 04:17] LABS: BASOPHILS % (AUTO) 0 % (0-10); EOSINOPHILS % (AUTO) 0 % (0-10); HEMATOCRIT 40 % (35-52); HEMOGLOBIN 13.6 G/DL (11.5-16.0); LYMPHOCYTES # (AUTO) 1.6 X 10^3 (1.0-4.0); LYMPHOCYTES % (AUTO) 14 % (12-44); MEAN CORPUSCULAR HEMOGLOBIN 31 PG (25-34); MEAN CORPUSCULAR HGB CONC 34 G/DL (32-36); MEAN CORPUSCULAR VOLUME 90 FL (80-99); MEAN PLATELET VOLUME 11.4 FL (7.4-10.4); MONOCYTES # (AUTO) 1.7 X 10^3 (0.0-1.0); MONOCYTES % (AUTO) 14 % (0-12); NEUTROPHILS # (AUTO) 8.2 X 10^3 (1.8-7.8); NEUTROPHILS % (AUTO) 71 % (42-75); PLATELET COUNT 183 10^3/uL (130-400); RED CELL DISTRIBUTION WIDTH 13.4 % (10.0-14.5); WHITE BLOOD COUNT 11.5 10^3/uL (4.3-11.0)
[2020-04-03 04:24] VITALS: BP 106/55
[2020-04-03 04:30] LABS: ALBUMIN 3.1 GM/DL (3.2-4.5); CHLORIDE 114 MMOL/L (98-107); SODIUM 137 MMOL/L (135-145)
[2020-04-03 04:32] LABS: CALCIUM 7.4 MG/DL (8.5-10.1)
[2020-04-03 04:33] LABS: GLUCOSE 144 MG/DL (70-105); TOTAL PROTEIN 6.7 GM/DL (6.4-8.2)
[2020-04-03 04:34] LABS: CARBON DIOXIDE 17 MMOL/L (21-32)
[2020-04-03 04:35] LABS: BILIRUBIN,TOTAL 0.6 MG/DL (0.1-1.0)
[2020-04-03 04:36] LABS: ALKALINE PHOSPHATASE 40 U/L (40-136); CREATININE SERUM 0.77 MG/DL (0.60-1.30); GFR ESTIMATED > 60
[2020-04-03 04:37] LABS: BUN/CREATININE RATIO 19
[2020-04-03 04:39] LABS: ALANINE AMINOTRANSFERASE 15 U/L (0-55)
[2020-04-03] MEDS ORDERED: GABA-490 PO (04:45)
[2020-04-03] MEDS ORDERED: ALBUTEROL/IPRATROP (COMBIVENT RESPIMAT) 4 GM INHALER IH PRN (04:45)
[2020-04-03] MEDS ORDERED: ASPI-999 PO (04:45)
[2020-04-03] MEDS ORDERED: DULO60CA59 PO (04:45)
[2020-04-03] MEDS ORDERED: SIMV20TA26 PO (04:45)
[2020-04-03] MEDS ORDERED: ISM60TCR PO (04:45)
[2020-04-03] MEDS ORDERED: DILT120C53 PO (04:45)
[2020-04-03] MEDS ORDERED: MONT10TA26 PO (04:45)
[2020-04-03] MEDS ORDERED: CLOP75TA28 PO (04:45)
[2020-04-03] MEDS ORDERED: METO-333 PO (04:45)
--- NOTE | 2020-04-03 04:50 | NUR ---
DR. GALVAN NOTIFIED OF CONSULT AT THIS TIME.
[2020-04-03] MEDS ORDERED: ACETAMINOPHEN 500 MG TAB (TYLENOL) PO PRN (05:00)
[2020-04-03 05:44] LABS: POTASSIUM 3.8 MMOL/L (3.6-5.0)
--- NOTE | 2020-04-03 07:15 | ED General ---
General Chief Complaint: Altered Mental Status Stated Complaint: LLL PNEUMONIA;AMS;SEPSIS;COVID PUI;RECENT PACEMAKE Nursing Triage Note: Pt to ED via EMS. EMS reports family called due to altered mental status. EMS reports 100.4 temperature enroute. Pt was discharged from [facility] today for pacemaker placement yesterday. Nursing Sepsis Screen: No Definite Risk Source of Information: EMS, Old Records Exam Limitations: Other (PT CONFUSED, AND IS UNABLE TO ANSWER ANY QUESTIONS) History of Present Illness Date Seen by Provider: Apr 02, 2020 Time Seen by Provider: 21:57 Initial Comments PT ARRIVES VIA EMS FROM HOME PT WITH ALTERED MENTAL STATUS PT WAS ADMITTED AND PACEMAKER WAS PLACED YESTERDAY FOR COMPLETE HEART BLOCK, AND WAS DISMISSED TODAY AT [facility] REPORT THAT PT HAS TEMP OF 100.6 BP 119/77, HR 88 PACED, RR 24, O2 SAT 96% ROOM AIR, GLUCOSE 140 PT HAS HAD MULTIPLE "FALLS" AND HAS HAD A FRACTURED LEFT HUMERUS FOR AT LEAST 3 MONTHS, AND IS WEARING A SLING/IMMOBILIZER. PT WEARS A BONE STIMULATOR ON HER LEFT ARM AT HOME--DOES NOT HAVE IT ON AT ARRIVAL TO ER. NO OTHER INFORMATION IS KNOWN ABOUT CURRENT CONDITION Allergies and Home Medications Allergies Coded Allergies: No Known Drug Allergies (Unverified , 08/15/19) Home Medications Brinzolamide/Brimonidine Tart 8 Ml Drops.susp, 1 DROP OU BID, (Reported) Cefuroxime Axetil 500 Mg Tablet, 500 MG PO BID, (Reported) FILLED 04-02-2020 #10/5 DAY SUPPLY Ibuprofen 200 Mg Tablet, 400 MG PO Q8H PRN for PAIN-MILD (1-4), (Reported) Lisinopril 20 Mg Tablet, 20 MG PO DAILY, (Reported) Meclizine HCl 25 Mg Tablet, 25 MG PO BID, (Reported) Metoprolol Succinate 25 Mg Tab.er.24h, 25 MG PO DAILY, (Reported) Multivitamin 1 Each Tablet, 1 EACH PO DAILY, (Reported) Simvastatin 20 Mg Tablet, 20 MG PO HS, (Reported) Patient Home Medication List Home Medication List Reviewed: Yes Review of Systems Review of Systems Constitutional: fever, other (PT UNABLE TO ANSWER QUESTIONS) Past Hevkpxw-Xfwpgp-Qejipt Hx Patient Social History Alcohol Use: Denies Use Recreational Drug Use: No 2nd Hand Smoke Exposure: No Recent Foreign Travel: No Contact w/Someone Who Travel: No Recent Infectious Disease Expo: No Recent Hopitalizations: No Immunizations Up To Date Tetanus Booster (TDap): Unknown Seasonal Allergies Seasonal Allergies: No Past Medical History Surgeries: Yes Appendectomy, Bowel Surgery Respiratory: No Cardiac: Yes High Cholesterol, Hypertension Neurological: Yes (Tremors) Vertigo : No Genitourinary: No Gastrointestinal: No Musculoskeletal: Yes (L Wrist) Fractures Endocrine: No HEENT: Yes Loss of Vision: Denies Hearing Impairment: Hard of Hearing Cancer: No Psychosocial: No Integumentary: No Blood Disorders: No Physical Exam Vital Signs Vital Signs - First Documented 04/02/20 04/03/20 04/03/20 21:57 02:32 04:24 Temp 37.4 Pulse 71 Resp 21 B/P (MAP) 119/67 (84) Pulse Ox 95 O2 Delivery Nasal Cannula O2 Flow Rate 2.00 FiO2 21 Capillary Refill : Less Than 3 SecondsLess Than 3 Seconds Height, Weight, BMI Height: '" Weight: lbs. oz. kg; 24.00 BMI Method: General Appearance: No Apparent Distress, WD/WN, Other (SOMEWHAT LETHARGIC.) HEENT: PERRL/EOMI, Normal ENT Inspection Neck: Normal Inspection Respiratory: Normal Breath Sounds (BUT DIMINISHED IN BASES. ), No Accessory Muscle Use, No Respiratory Distress, Other (PACEMAKER SITE APPEARS NORMAL. DRESSING CLEAN/DRY/INTACT, NO SIGNS OF INFECTION) Cardiovascular: Regular Rate, Rhythm, No JVD, No Murmur, Normal Peripheral Pulses Gastrointestinal: Non Tender, Soft Back: Normal Inspection Extremity: Other (LEFT ARM IN SLING/SHOULDER IMMOBILIZER) Neurologic/Psychiatric: Alert, Other (DISORIENTED, SPEECH IS MINIMAL AND NON- SENSICAL. UNABLE TO ANSWER YES/NO QUESTIONS OR FOLLOW ANY COMMANDS. SOMEWHAT LETHARGIC. DOES MOVE ALL EXTREMITIES. ) Focused Exam Lactate Level Progress/Results/Core Measures Suspected Sepsis Recent Fever Within 48 Hours: Yes Infection Criteria Present: Documented Infection New/Unexplained Altered Menta: Yes Sepsis Screen: No Definite Risk SIRS Temperature: Pulse: 61 Respiratory Rate: 16 Laboratory Tests 04/07/20 05:41: White Blood Count 6.4 Blood Pressure 106 /55 Mean: 84 Laboratory Tests 04/07/20 05:41: Creatinine 0.76, Platelet Count 232, Total Bilirubin 0.5 Results/Orders Lab Results Laboratory Tests Test 04/05/20 15:20 04/07/20 05:41 Range/Units B-Type Natriuretic Peptide 3462.8 H <100.0 PG/ML White Blood Count 6.4 4.3-11.0 10^3/uL Red Blood Count 4.65 4.35-5.85 10^6/uL Hemoglobin 13.8 11.5-16.0 G/DL Hematocrit 42 35-52 % Mean Corpuscular Volume 90 80-99 FL Mean Corpuscular Hemoglobin 30 25-34 PG Mean Corpuscular Hemoglobin Concent 33 32-36 G/DL Red Cell Distribution Width 13.9 10.0-14.5 % Platelet Count 232 130-400 10^3/uL Mean Platelet Volume 9.9 7.4-10.4 FL Sodium Level 142 135-145 MMOL/L Potassium Level 3.9 3.6-5.0 MMOL/L Chloride Level 109 H 98-107 MMOL/L Carbon Dioxide Level 23 21-32 MMOL/L Anion Gap 10 5-14 MMOL/L Blood Urea Nitrogen 18 7-18 MG/DL Creatinine 0.76 0.60-1.30 MG/DL Estimat Glomerular Filtration Rate > 60 BUN/Creatinine Ratio 24 Glucose Level 92 70-105 MG/DL Calcium Level 8.8 8.5-10.1 MG/DL Corrected Calcium 9.7 8.5-10.1 MG/DL Total Bilirubin 0.5 0.1-1.0 MG/DL Aspartate Amino Transf (AST/SGOT) 41 H 5-34 U/L Alanine Aminotransferase (ALT/SGPT) 42 0-55 U/L Alkaline Phosphatase 61 40-136 U/L Total Protein 5.4 L 6.4-8.2 GM/DL Albumin 2.9 L 3.2-4.5 GM/DL My Orders Orders - ZULEMA OWENS DO [facility] [employer] [facility] (04/02/20 ) Medications Given in ED Vital Signs/I&O 04/06/20 04/06/20 04/06/20 04/06/20 19:00 19:10 19:45 21:27 Temp 37.3 Pulse 88 89 Resp 16 B/P (MAP) 105/68 (80) Pulse Ox 92 90 O2 Delivery Room Air Room Air Room Air 04/06/20 04/07/20 04/07/20 04/07/20 23:53 01:00 04:09 06:42 Temp 37.1 37.1 Pulse 83 84 82 Resp 18 18 B/P (MAP) 112/75 (87) 112/71 (85) Pulse Ox 93 91 O2 Delivery Room Air Room Air Room Air Capillary Refill : Less Than 3 SecondsLess Than 3 Seconds Blood Pressure Mean: 84 Progress Note : Progress Note NO DETERIORATION IN PT'S CONDITION DURING ER STAY ECG Initial ECG Impression Date: Apr 02, 2020 Initial ECG Impression Time: 22:23 Initial ECG Rate: 74 Comment ATRIAL PACED RHYTHM Diagnostic Imaging Comments CXR--LLL INFILTRATE AND EFFUSION, PENDING RADIOLOGIST REVIEW Reviewed: Reviewed by Me Departure Communication (Admissions) 0015--SPOKE WITH DR. AGUIRRE, ACCEPTS PT FOR ADMIT Impression Primary Impression: Sepsis Additional Impressions: LLL pneumonia Altered mental state s/p recent pacemaker Disposition: ADMITTED INPATIENT Condition: Stable Admissions Decision to Admit Reason: Admit from ER (General) Decision to Admit/Date: Apr 03, 2020 Time/Decision to Admit Time: 00:15 Departure-Patient Inst. Referrals: EMILY BERKOWITZ DO (PCP) Primary Care Physician ZULEMA OWENS DO Apr 03, 2020 07:15
[2020-04-03 07:52] VITALS: BP 109/54
--- NOTE | 2020-04-03 08:20 | Diagnostic Imaging Report ---
INDICATION: Altered mental status. TIME OF EXAM: 11:24 PM Correlation is made with prior chest from 04/01/2020. FINDINGS: Cardiac pacemaker remains in place. Heart size is stable. There is central congestion. Minimal infiltrate or atelectasis left base is noted. Right lung is fairly clear. There is slight blunting of the left costophrenic angle. Minimal pleural fluid or pleural thickening is suspected. Upper lung lopez are clear. There is no pneumothorax. IMPRESSION: Central congestion with minimal left basilar infiltrate or atelectasis and trace left effusion. Dictated by: Dictated on workstation # [id number]
[2020-04-03] MEDS ORDERED: MTP25TSR PO (10:57)
[2020-04-03] MEDS ORDERED: BRIN8DRO OU (10:57)
[2020-04-03] MEDS ORDERED: HYDR-83 PO (10:58)
[2020-04-03] MEDS ORDERED: LISI-552 PO (10:58)
[2020-04-03] MEDS ORDERED: HYDR-4342 PO (11:01)
[2020-04-03 11:04] VITALS: BP 109/54
--- NOTE | 2020-04-03 11:24 | Consultation-Cardiology ---
HPI-Cardiology Cardiology Consultation Date of Consultation 04/03/20 Date of Admission Time Seen by Provider: 11:21 Indication: change in mental status HPI 89-year-old lady with history of hypertension, hyperlipidemia, was admitted on April 01, 2020 with generalized fatigue and change in mental status with severe bradycardia and complete heart block. Patient was taken to the [facility] had dual-chamber pacemaker implanted without any complication, the next day she was feeling better and she was discharged home. Returned by EMS in the evening due to change in mental status and generalized fatigue and lethargy. No fever or chills. No shortness of breath. No cough or sputum. Home Medications & Allergies Allergies: Coded Allergies: No Known Drug Allergies (Unverified , 08/15/19) Home Medication List Reviewed: Yes QWU-Yuwage-Baumxk Hx Patient Social History Marital Status: Employed/Student: retired Alcohol Use: Denies Use Recreational Drug Use: No 2nd Hand Smoke Exposure: No Recent Foreign Travel: No Recent Infectious Disease Expo: No Recent Hopitalizations: No Immunizations Up To Date Tetanus Booster (TDap): Unknown Past Medical History Discussed below Family Medical History Family Medical Hx Noncontributory Review of Systems-General Review of Systems Constitutional: see HPI, fever, malaise, other (PT UNABLE TO ANSWER QUESTIONS) EENTM: see HPI, no symptoms reported Respiratory: see HPI; No cough, No dyspnea on exertion, No hemoptysis, No orthopnea, No phlegm, No short of breath, No stridor, No wheezing, No other Cardiovascular: see HPI; No chest pain, No edema, No Hx of Intervention, No palpitations, No syncope, No vascular heart diseas, No other Gastrointestinal: no symptoms reported, see HPI Genitourinary: no symptoms reported, see HPI Musculoskeletal: no symptoms reported, see HPI Skin: no symptoms reported, see HPI Psychiatric/Neurological: No Symptoms Reported, See HPI Reviewed Test Results Reviewed Test Results Lab Laboratory Tests Test 04/02/20 22:30 04/02/20 22:55 04/02/20 23:38 04/03/20 04:05 Range/Units White Blood Count 14.3 H 11.5 H 4.3-11.0 10^3/uL Red Blood Count 5.40 4.44 4.35-5.85 10^6/uL Hemoglobin 16.4 H 13.6 11.5-16.0 G/DL Hematocrit 47 40 35-52 % Mean Corpuscular Volume 87 90 80-99 FL Mean Corpuscular Hemoglobin 30 31 25-34 PG Mean Corpuscular Hemoglobin Concent 35 34 32-36 G/DL Red Cell Distribution Width 13.8 13.4 10.0-14.5 % Platelet Count 246 183 130-400 10^3/uL Mean Platelet Volume 12.3 H 11.4 H 7.4-10.4 FL Neutrophils (%) (Auto) 77 H 71 42-75 % Lymphocytes (%) (Auto) 8 L 14 12-44 % Monocytes (%) (Auto) 15 H 14 H 0-12 % Eosinophils (%) (Auto) 0 0 0-10 % Basophils (%) (Auto) 0 0 0-10 % Neutrophils # (Auto) 11.0 H 8.2 H 1.8-7.8 X 10^3 Lymphocytes # (Auto) 1.1 1.6 1.0-4.0 X 10^3 Monocytes # (Auto) 2.2 H 1.7 H 0.0-1.0 X 10^3 Eosinophils # (Auto) 0.0 0.0 0.0-0.3 10^3/uL Basophils # (Auto) 0.0 0.0 0.0-0.1 10^3/uL Neutrophils % (Manual) 81 % Lymphocytes % (Manual) 6 % Monocytes % (Manual) 11 % Eosinophils % (Manual) 0 % Basophils % (Manual) 0 % Band Neutrophils 0 % Reactive Lymphocytes 2 % Toxic Granulation 1+ Clumped Platelets SLIGHT Erythrocyte Sedimentation Rate 1 0-30 MM/HR Urine Color YELLOW Urine Clarity SL CLOUDY Urine pH 5.5 5-9 Urine Specific [place] >=1.030 1.016-1.022 Urine Protein 2+ H NEGATIVE Urine Glucose (UA) NEGATIVE NEGATIVE Urine Ketones NEGATIVE NEGATIVE Urine Nitrite NEGATIVE NEGATIVE Urine Bilirubin NEGATIVE NEGATIVE Urine Urobilinogen 0.2 < = 1.0 MG/DL Urine Leukocyte Esterase NEGATIVE NEGATIVE Urine RBC (Auto) 1+ H NEGATIVE Urine RBC RARE /HPF Urine WBC RARE /HPF Urine Squamous Epithelial Cells RARE /HPF Urine Crystals NONE /LPF Urine Bacteria TRACE /HPF Urine Casts NONE /LPF Urine Mucus MODERATE H /LPF Urine Culture Indicated NO Lactic Acid Level 1.51 0.50-2.00 MMOL/L Prothrombin Time 14.7 12.2-14.7 SEC INR Comment 1.1 0.8-1.4 Activated Partial Thromboplast Time 30 24-35 SEC D-Dimer 1.78 H 0.00-0.49 UG/ML Sodium Level 138 137 135-145 MMOL/L Potassium Level 4.1 3.8 3.6-5.0 MMOL/L Chloride Level 109 H 114 H 98-107 MMOL/L Carbon Dioxide Level 18 L 17 L 21-32 MMOL/L Anion Gap 11 6 5-14 MMOL/L Blood Urea Nitrogen 16 15 7-18 MG/DL Creatinine 0.76 0.77 0.60-1.30 MG/DL Estimat Glomerular Filtration Rate > 60 > 60 BUN/Creatinine Ratio 21 19 Glucose Level 127 H 144 H 70-105 MG/DL Calcium Level 8.8 7.4 L 8.5-10.1 MG/DL Corrected Calcium 9.0 8.1 L 8.5-10.1 MG/DL Total Bilirubin 1.2 H 0.6 0.1-1.0 MG/DL Aspartate Amino Transf (AST/SGOT) 24 71 H 5-34 U/L Alanine Aminotransferase (ALT/SGPT) 12 15 0-55 U/L Alkaline Phosphatase 61 40 40-136 U/L C-Reactive Protein High Sensitivity 9.40 H 0.00-0.50 MG/DL Total Protein 6.3 L 6.7 6.4-8.2 GM/DL Albumin 3.7 3.1 L 3.2-4.5 GM/DL Procalcitonin 0.20 H 0.24 H <0.10 NG/ML Physical Exam Physical Exam Vital Signs Vital Signs - First Documented 04/02/20 04/03/20 04/03/20 21:57 02:32 04:24 Temp 37.4 Pulse 71 Resp 21 B/P (MAP) 119/67 (84) Pulse Ox 95 O2 Delivery Nasal Cannula O2 Flow Rate 2.00 FiO2 21 Capillary Refill : Less Than 3 SecondsLess Than 3 Seconds Height, Weight, BMI Height: '" Weight: lbs. oz. kg; 24.00 BMI Method: General Appearance: No Apparent Distress, WD/WN, Other (SOMEWHAT LETHARGIC.) HEENT: PERRL/EOMI, Normal ENT Inspection Neck: Normal Inspection Respiratory: Normal Breath Sounds (BUT DIMINISHED IN BASES. ), No Accessory Muscle Use, No Respiratory Distress, Other (PACEMAKER SITE APPEARS NORMAL. DRESSING CLEAN/DRY/INTACT, NO SIGNS OF INFECTION) Cardiovascular: Regular Rate, Rhythm, No JVD, No Murmur, Normal Peripheral Pulses Gastrointestinal: Non Tender, Soft Back: Normal Inspection Extremity: Other (LEFT ARM IN SLING/SHOULDER IMMOBILIZER) Neurologic/Psychiatric: Alert, Other (DISORIENTED, SPEECH IS MINIMAL AND NON- SENSICAL. UNABLE TO ANSWER YES/NO QUESTIONS OR FOLLOW ANY COMMANDS. SOMEWHAT LETHARGIC. DOES MOVE ALL EXTREMITIES. ) A/P-Cardiology Admission Diagnosis Pneumonia Complete heart block Hypertension Hyperlipidemia Assessment/Plan Possible pneumonia, receiving empiric therapy, workup is in progress, managed by primary care team Complete heart block, status post dual-chamber pacemaker implantation done on April 01, 2020, received Ancef pre-and post operatively and she was discharged on Ceftin. Hypertension, restarted lisinopril and Toprol and monitor blood pressure Hyperlipidemia has been on simvastatin Change in mental status, generalized fatigue and dementia. Managed by primary care team Clinical Quality Measures DVT/VTE Risk/Contraindication: Risk Factor Score Per Nursin RFS Level Per Nursing on Admit: 4+=Very High NAJMA GALVAN MD Apr 03, 2020 11:24
--- NOTE | 2020-04-03 11:49 | History & Physical-Hospitalist ---
History of Present Illness HPI/Chief Complaint PT ARRIVES VIA EMS FROM HOME PT WITH ALTERED MENTAL STATUS PT WAS ADMITTED AND PACEMAKER WAS PLACED YESTERDAY FOR COMPLETE HEART BLOCK, AND WAS DISMISSED TODAY [facility] REPORT THAT PT HAS TEMP OF 100.6 BP 119/77, HR 88 PACED, RR 24, O2 SAT 96% ROOM AIR, GLUCOSE 140 PT HAS HAD MULTIPLE "FALLS" AND HAS HAD A FRACTURED LEFT HUMERUS FOR AT LEAST 3 MONTHS, AND IS WEARING A SLING/IMMOBILIZER. PT WEARS A BONE STIMULATOR ON HER LEFT ARM AT HOME--DOES NOT HAVE IT ON AT ARRIVAL TO ER. Upon my arrival the patient was sleeping and appeared to be in no acute distress. I was able to wake her up and then she would fall back asleep. She denied any pain and did not appear to be in acute distress. She wasn't able answer any other questions. Respiratory rate was 18 and nonlabored and she was slightly flushed in appearance. Date Seen 04/03/20 Time Seen by a Provider: 11:43 Attending Physician Qasim Cobos MD PCP Claudy Enrique DO Referring Physician Date of Admission Apr 03, 2020 at 00:15 Home Medications & Allergies Home Medications Reviewed patient Home Medication Reconciliation performed by pharmacy medication reconciliations driver service technician and/or nursing. Patients Allergies have been reviewed. Allergies Allergies Coded Allergies No Known Drug Allergies ([id number]) Past [id number] Hx Past Med/Social Hx: Reviewed and Corrections made Patient Social History Marrital Status: Employed/Student: retired Alcohol Use: Denies Use Recreational Drug Use: No 2nd Hand Smoke Exposure: No Recent Foreign Travel: No Contact w/other who traveled: No Recent Hopitalizations: No Recent Infectious Disease Expo: No Immunizations Up To Date Tetanus Booster (TDap): Unknown Seasonal Allergies Seasonal Allergies: No Past Medical History Surgeries: Appendectomy, Bowel Surgery Cardiac: High Cholesterol, Hypertension Neurological: Vertigo : No Musculoskeletal: Fractures Loss of Vision: Denies Hearing Impairment: Hard of Hearing History of Blood Disorders: No Review of Systems Constitutional: see HPI Physical Exam Physical Exam Vital Signs Vital Signs - First Documented 04/02/20 04/03/20 04/03/20 21:57 02:32 04:24 Temp 37.4 Pulse 71 Resp 21 B/P (MAP) 119/67 (84) Pulse Ox 95 O2 Delivery Nasal Cannula O2 Flow Rate 2.00 FiO2 21 Capillary Refill : Less Than 3 SecondsLess Than 3 Seconds Height, Weight, BMI Height: '" Weight: lbs. oz. kg; 24.00 BMI Method: General Appearance: Other (Slightly flushed and sedate appears to be in no acute distress) Respiratory: Chest Non Tender, Lungs Clear, Normal Breath Sounds, No Accessory Muscle Use, No Respiratory Distress, Other (Unable to sit patient up however and she is unable to take deep breaths she has some mild diminishment in breath sounds in the bases listening with the patient in the supine position) Cardiovascular: Regular Rate, Rhythm, No Edema, No Gallop, No JVD, No Murmur, Normal Peripheral Pulses Gastrointestinal: Normal Bowel Sounds, No Organomegaly, No Pulsatile Mass, Non Tender (No reaction to palpation), Soft Skin: Damp, Other (Expected swelling at the pacemaker site without evidence for erythema patient does not react to palpation there is no increased warmth) Results Results/Procedures Labs Patient resulted labs reviewed. Assessment/Plan Admission Diagnosis 1. Probable left lower lobe pneumonia community-acquired suspect bacterial etiology considering elevated pro calcitonin level COVID-XIX however is still a concern tests pending continue droplet and contact isolation. Continue antibiotics currently Rocephin and azithromycin for community-acquired pneumonia this would not about hospital-acquired issues just discharged yesterday. I suspect that her mental status changes were secondary to infection with no other symptoms due to her advanced age. 2. Hypoactive delirium likely due to number 1 continue to monitor. 3. Sick sinus syndrome questionably aggravated by number 1 post pacemaker placement. 4. History of hypertension we'll hold lisinopril as her blood pressure is low normal. 5. Hyperlipidemia considering likely hypoactive delirium will be holding pills until she is awake and alert so I have not reordered simvastatin. Admission Status: Inpatient Order (span 2 midnights) Reason for Inpatient Admission: See admission diagnosis Clinical Quality Measures DVT/VTE Risk/Contraindication: Risk Factor Score Per Nursin RFS Level Per Nursing on Admit: 4+=Very High QASIM COBOS MD Apr 03, 2020 11:49
[2020-04-03 13:17] VITALS: BP 132/60
[2020-04-03] MEDS: ALBUTEROL/IPRATROP (COMBIVENT RESPIMAT) 4 GM INHALER IH SCH (18:35)
--- NOTE | 2020-04-03 18:45 | NUR ---
patient family asking if they can continue to use the bone stimulator on the left humerus - this was suggested to use every day for 3 hours by the orthopedic doctor (is it safe with pacemaker ?)
[2020-04-03 19:53] VITALS: BP 125/60
[2020-04-03] MEDS: cefTRIAXone 1,000 MG/SWFI 10 ML IV PUSH IV SCH ×2 (21:49)
[2020-04-03] MEDS: AZITHROMYCIN 250 MG TAB (ZITHROMAX) PO SCH (21:49)
[2020-04-04] VITALS: BP 122/74
[2020-04-04 04:00] VITALS: BP 133/82
[2020-04-04] MEDS: D5 1/2 NS W/KCL 20 MEQ/L 1,000 ML IV SCH ×3 (06:09→20:25)
[2020-04-04] MEDS: ALBUTEROL/IPRATROP (COMBIVENT RESPIMAT) 4 GM INHALER IH SCH ×2 (06:34→19:46)
[2020-04-04 08:00] VITALS: BP 138/96
--- NOTE | 2020-04-04 11:34 | NUR ---
DR GALVAN HERE TO SEE PATIENT. CONFIRM PATIENT IS OK TO AMBULATE. NO ORDERS RECEIVED.
--- NOTE | 2020-04-04 11:50 | NUR ---
DR COBOS HERE,NEW ORDERS RECEIVED.
--- NOTE | 2020-04-04 11:54 | Cardiology Progress Note ---
Subjective Date Seen by Provider: Apr 04, 2020 Time Seen by Provider: 11:53 Subjective/Events-last exam Patient is laying down in bed, more awake, feeling better, still confused Review of Systems General: No Chills, No Night Sweats, No Fatigue, No Malaise, No Appetite, No Ot her HEENT: No Head Aches, No Visual Changes, No Eye Pain, No Ear Pain, No Dysphasia, No Sinus Congestion, No Post Nasal Drip, No Sore Throat, No Other Pulmonary: No Dyspnea, No Cough, No Pleuritic Chest Pain, No Other Cardiovascular: No: Chest Pain, Palpitations, Orthopnea, Paroxysmal Noc. Dyspnea, Edema, Lt Headedness, Other Focused Exam Lactate Level 04/02/20 22:30: Lactic Acid Level 1.51 Objective-Cardiology Exam Last Set of Vital Signs Vital Signs 04/03/20 04/04/20 11:04 08:00 Temp 36.0 Pulse 72 Resp 16 B/P (MAP) 138/96 (110) Pulse Ox 93 O2 Delivery Room Air O2 Flow Rate 2.00 FiO2 21 Capillary Refill : Less Than 3 SecondsLess Than 3 Seconds I&O Intake and Output 04/03/20 23:59 Intake Total 2260 ml Output Total 2650 ml Balance -390 ml Intake Oral 1000 ml IV Total 1260 ml Output Urine Total 2650 ml Daily Weight Change Unsure/Unresponsive Unsure General: Alert, Oriented X3, Cooperative HEENT: Atraumatic, PERRLA Neck: Supple, No JVD, No Thyromegaly Lungs: Clear to Auscultation, Normal Air Movement Heart: Regular Rate, Normal S1, Normal S2, No Murmurs Abdomen: Normal Bowel Sounds, Soft, No Tenderness, No Hepatosplenomegaly, No Masses Extremities: No Clubbing, No Cyanosis, No Edema, Normal Pulses, No Tenderness/Swelling Skin: No Rashes, No Breakdown, No Significant Lesion Neuro: Normal Gait, Normal Speech, Strength at 5/5 X4 Ext, Normal Tone, Sensation Intact Psych/Mental Status: Mental Status NL, Mood NL A/P-Cardiology Admission Diagnosis Pneumonia Complete heart block Hypertension Hyperlipidemia Assessment/Plan Possible pneumonia, receiving empiric therapy, managed by primary care team Complete heart block, status post dual-chamber pacemaker implantation done on April 01, 2020, received Ancef pre-and post operatively and she was discharged on Ceftin. Hypertension, continue on current medication monitor Hyperlipidemia has been on simvastatin Change in mental status, generalized fatigue and dementia. Managed by primary care team Clinical Quality Measures DVT/VTE Risk/Contraindication: Risk Factor Score Per Nursin RFS Level Per Nursing on Admit: 4+=Very High NAJMA GALVAN MD Apr 04, 2020 11:54 am
[2020-04-04 12:00] VITALS: BP 138/77
--- NOTE | 2020-04-04 12:56 | Progress Note - Hospitalist ---
Subjective HPI/CC On Admission Date Seen by Provider: Apr 04, 2020 Time Seen by Provider: 11:30 PT ARRIVES VIA EMS FROM HOME PT WITH ALTERED MENTAL STATUS PT WAS ADMITTED AND PACEMAKER WAS PLACED YESTERDAY FOR COMPLETE HEART BLOCK, AND WAS DISMISSED TODAY [facility] REPORT THAT PT HAS TEMP OF 100.6 BP 119/77, HR 88 PACED, RR 24, O2 SAT 96% ROOM AIR, GLUCOSE 140 PT HAS HAD MULTIPLE "FALLS" AND HAS HAD A FRACTURED LEFT HUMERUS FOR AT LEAST 3 MONTHS, AND IS WEARING A SLING/IMMOBILIZER. PT WEARS A BONE STIMULATOR ON HER LEFT ARM AT HOME--DOES NOT HAVE IT ON AT ARRIVAL TO ER. Upon my arrival the patient was sleeping and appeared to be in no acute distress. I was able to wake her up and then she would fall back asleep. She denied any pain and did not appear to be in acute distress. She wasn't able answer any other questions. Respiratory rate was 18 and nonlabored and she was slightly flushed in appearance. Subjective/Events-last exam Patient much more alert today oriented to person and place reports she generally feels weak but voices no other complaints. She denies cough or chest pain with only minimal discomfort over the pacemaker site. She does not recall anything from yesterday. She did exhibit a tremor today pill-rolling type involving the left upper and lower extremity to greater degree than the right upper extremity. No tremor noted in the right lower extremity. She states that she's had a tremor for some time it is gotten worse. She was given a medication that starts with PT for the tremor but reports it does not work and she is not familiar with Sinemet or carbidopa/levodopa. Focused Exam Lactate Level 04/02/20 22:30: Lactic Acid Level 1.51 Objective Exam Vital Signs Vital Signs Date Time Temp Pulse Resp B/P (MAP) Pulse Ox O2 Delivery O2 Flow Rate FiO2 04/04/20 08:00 Room Air 04/04/20 08:00 36.0 72 16 138/96 (110) 93 04/03/20 11:04 21 04/03/20 11:04 2.00 Capillary Refill : Less Than 3 SecondsLess Than 3 Seconds General Appearance: No Apparent Distress, Other (Decreased facial expressions noted with decreased blink time.) Respiratory: Chest Non Tender, Lungs Clear, Normal Breath Sounds, No Accessory Muscle Use, No Respiratory Distress Cardiovascular: Regular Rate, Rhythm, No Edema, No Gallop, No JVD, No Murmur, Normal Peripheral Pulses Gastrointestinal: Normal Bowel Sounds, No Organomegaly, No Pulsatile Mass, Non Tender, Soft Neurologic/Psychiatric: Alert, Other (Shuffled gaits noted no significant frailty. Pill-rolling type tremor is noted as per history of present illness. There is cogwheeling noted in the right upper extremity the left upper extremity is in a splint for reported fall related left humeral fracture that was re- fracture during a second fall per the patient reports. She is able to move fingers no significant left hand edema.) Results/Procedures Lab Patient resulted labs reviewed. Assessment/Plan Assessment and Plan Assess & Plan/Chief Complaint A/P 1. Likely hypoactive delirium much improved today. Suspect this may be due to recent pacemaker placement in individual with underlying Parkinson's disease. Patient's daughter reports that she was not confused prior just extremely weak with everything that she has been through with falls and fracture. At this time pneumonia diagnosis is doubtful we'll repeat labs tomorrow continue antibiotics today but considering discontinuing tomorrow as long as exam is stable. 2. Physical exam findings, strongly suggest Parkinson's disease may consider a trial of low-dose Sinemet tomorrow. Patient is likely a poor candidate for discharge to home and will likely need to address either long-term care facility placement rehabilitation or swing bed with physical therapy. Clinical Quality Measures DVT/VTE Risk/Contraindication: Risk Factor Score Per Nursin RFS Level Per Nursing on Admit: 4+=Very High DAI COBOS MD Apr 04, 2020 12:56
[2020-04-04] MEDS: ENOXAPARIN 40 MG/0.4 ML (LOVENOX) SYR SC SCH (13:51)
[2020-04-04 16:49] VITALS: BP 142/67
[2020-04-04 19:52] VITALS: BP 141/80
[2020-04-04] MEDS: AZITHROMYCIN 250 MG TAB (ZITHROMAX) PO SCH (22:28)
[2020-04-04] MEDS: cefTRIAXone 1,000 MG/SWFI 10 ML IV PUSH IV SCH ×2 (22:29)
[2020-04-05] VITALS: BP 147/88
[2020-04-05] MEDS: D5 1/2 NS W/KCL 20 MEQ/L 1,000 ML IV SCH ×3 (03:34→13:22)
[2020-04-05 04:00] VITALS: BP 142/83
[2020-04-05] MEDS: ALBUTEROL/IPRATROP (COMBIVENT RESPIMAT) 4 GM INHALER IH SCH (06:41)
[2020-04-05 07:47] VITALS: BP 166/82
[2020-04-05 12:00] VITALS: BP 135/64
--- NOTE | 2020-04-05 12:01 | Diagnostic Imaging Report ---
Indication: Pneumonia. Time of Exam 11:48 AM Correlation is made with prior chest from 04/02/2020. The heart size is stable. Cardiac pacemaker remains in place. Congestive changes have increased. Central vascularity is prominent. There is consolidation and pleural fluid in the left base which appears increased, as well. No pneumothorax is detected. IMPRESSION: Increasing congestive changes as well as increasing left basilar consolidation and pleural fluid when compared with examination 3 days earlier. Dictated by: Dictated on workstation # [id number]
--- NOTE | 2020-04-05 12:50 | Cardiology Progress Note ---
Subjective Date Seen by Provider: Apr 05, 2020 Time Seen by Provider: 12:48 Subjective/Events-last exam Patient is sitting in bed, awake, appeared to be more confused today. I had a long discussion with the and daughter regarding underlying dementia and delirium. I reported to them that I doubt that she has pneumonia but after reviewing her chest x-ray appeared to have more pulmonary infiltrate and pro- calcitonin is elevated Review of Systems General: No Chills, No Night Sweats, No Fatigue, No Malaise, No Appetite, No Other HEENT: No Head Aches, No Visual Changes, No Eye Pain, No Ear Pain, No Dysphasia, No Sinus Congestion, No Post Nasal Drip, No Sore Throat, No Other Pulmonary: No Dyspnea, No Cough, No Pleuritic Chest Pain, No Other Cardiovascular: No: Chest Pain, Palpitations, Orthopnea, Paroxysmal Noc. Dyspnea, Edema, Lt Headedness, Other Focused Exam Lactate Level 04/02/20 22:30: Lactic Acid Level 1.51 Objective-Cardiology Exam Last Set of Vital Signs Vital Signs 04/03/20 04/05/20 04/05/20 11:04 07:47 08:00 Temp 36.7 Pulse 93 Resp 22 B/P (MAP) 166/82 (110) Pulse Ox 92 O2 Delivery Room Air O2 Flow Rate 2.00 FiO2 21 Capillary Refill : Less Than 3 SecondsLess Than 3 Seconds I&O Intake and Output 04/05/20 00:00 Intake Total 1350 ml Output Total 1825 ml Balance -475 ml Intake Oral 1350 ml Output Urine Total 1825 ml # Voids 3 General: Alert, Oriented X3, Cooperative HEENT: Atraumatic, PERRLA Neck: Supple, No JVD, No Thyromegaly Lungs: Clear to Auscultation, Normal Air Movement Heart: Regular Rate, Normal S1, Normal S2, No Murmurs Abdomen: Normal Bowel Sounds, Soft, No Tenderness, No Hepatosplenomegaly, No Masses Extremities: No Clubbing, No Cyanosis, No Edema, Normal Pulses, No Tenderness/Swelling Skin: No Rashes, No Breakdown, No Significant Lesion Neuro: Normal Gait, Normal Speech, Strength at 5/5 X4 Ext, Normal Tone, Sensation Intact Psych/Mental Status: Mental Status NL, Mood NL A/P-Cardiology Admission Diagnosis Pneumonia Complete heart block Hypertension Hyperlipidemia Assessment/Plan Possible pneumonia, receiving empiric therapy, managed by primary care team Complete heart block, status post dual-chamber pacemaker implantation done on April 01, 2020, received Ancef pre-and post operatively and she was discharged on Ceftin. Congestive heart failure, probably left ventricular diastolic dysfunction. I will evaluate 2-D echo, I'll give her one dose of Lasix today. Hypertension, continue on current medication monitor Hyperlipidemia has been on simvastatin Change in mental status, generalized fatigue and dementia. Managed by primary care team Clinical Quality Measures DVT/VTE Risk/Contraindication: Risk Factor Score Per Nursin RFS Level Per Nursing on Admit: 4+=Very High NAJMA GALVAN MD Apr 05, 2020 12:50 pm
[2020-04-05] MEDS: ENOXAPARIN 40 MG/0.4 ML (LOVENOX) SYR SC SCH (13:00)
[2020-04-05] MEDS ORDERED: FUROSEMIDE 40 MG/4 ML INJ (LASIX) IVP NR (13:00)
--- NOTE | 2020-04-05 13:20 | Progress Note - Hospitalist ---
Subjective HPI/CC On Admission Date Seen by Provider: Apr 05, 2020 Time Seen by Provider: 11:30 PT ARRIVES VIA EMS FROM HOME PT WITH ALTERED MENTAL STATUS PT WAS ADMITTED AND PACEMAKER WAS PLACED YESTERDAY FOR COMPLETE HEART BLOCK, AND WAS DISMISSED TODAY [facility] REPORT THAT PT HAS TEMP OF 100.6 BP 119/77, HR 88 PACED, RR 24, O2 SAT 96% ROOM AIR, GLUCOSE 140 PT HAS HAD MULTIPLE "FALLS" AND HAS HAD A FRACTURED LEFT HUMERUS FOR AT LEAST 3 MONTHS, AND IS WEARING A SLING/IMMOBILIZER. PT WEARS A BONE STIMULATOR ON HER LEFT ARM AT HOME--DOES NOT HAVE IT ON AT ARRIVAL TO ER. Upon my arrival the patient was sleeping and appeared to be in no acute distress. I was able to wake her up and then she would fall back asleep. She denied any pain and did not appear to be in acute distress. She wasn't able answer any other questions. Respiratory rate was 18 and nonlabored and she was slightly flushed in appearance. Subjective/Events-last exam Patient sedated and confused again no apparent sedating medications given last night. Family at the bedside concerned about her breathing. She appears relaxed sonorous upper airway sounds noted no evidence for obstructive breathing pattern. She arouses to verbal stimulation but unable to answer questions. She appears to be in no acute distress. Focused Exam Lactate Level 04/02/20 22:30: Lactic Acid Level 1.51 Objective Exam Vital Signs Vital Signs Date Time Temp Pulse Resp B/P (MAP) Pulse Ox O2 Delivery O2 Flow Rate FiO2 04/05/20 12:00 36.7 81 22 135/64 (87) 92 Room Air 04/03/20 11:04 21 04/03/20 11:04 2.00 Capillary Refill : Less Than 3 SecondsLess Than 3 Seconds General Appearance: No Apparent Distress, Chronically ill Respiratory: Chest Non Tender, Lungs Clear, Normal Breath Sounds, No Accessory Muscle Use, No Respiratory Distress Cardiovascular: Regular Rate, Rhythm, No Edema, No Gallop, No JVD, No Murmur, Normal Peripheral Pulses Gastrointestinal: Normal Bowel Sounds, No Organomegaly, No Pulsatile Mass, Non Tender, Soft Results/Procedures Lab Patient resulted labs reviewed. Assessment/Plan Assessment and Plan Assess & Plan/Chief Complaint A/P 1. Likely hypoactive delirium was better yesterday but has returned this morning. Had a long discussion with family about delirium and its up-and-down course throughout the day. She is going to be too weak to return home at this time with current family resources. Her has dementia and there is only one daughter who is not going to be able to handle both her care needs. Advised skilled long-term placement as she is a candidate for physical therapy when her delirium resolves. Suspect this may be due to recent pacemaker placement in individual with underlying Parkinson's disease. Patient's daughter reports that she was not confused prior just extremely weak with everything that she has been through with falls and fracture. At this time pneumonia diagnosis is doubtful we'll repeat labs tomorrow continue antibiotics today but considering discontinuing tomorrow as long as exam is stable. 2. Physical exam findings, strongly suggest Parkinson's disease may consider a trial of low-dose Sinemet tomorrow. Discussed recommendation for neurologic referral as an outpatient in the future. Clinical Quality Measures DVT/VTE Risk/Contraindication: Risk Factor Score Per Nursin RFS Level Per Nursing on Admit: 4+=Very High DAI COBOS MD Apr 05, 2020 13:20
[2020-04-05 16:26] VITALS: BP 130/70
[2020-04-05 20:05] VITALS: BP 131/69
[2020-04-05] MEDS: cefTRIAXone 1,000 MG/SWFI 10 ML IV PUSH IV SCH ×2 (20:19)
[2020-04-05] MEDS: AZITHROMYCIN 250 MG TAB (ZITHROMAX) PO SCH (20:19)
[2020-04-06] VITALS (8 sets, daily range): BP systolic 105–134; BP diastolic 68–77
[2020-04-06] MEDS ORDERED: FUROSEMIDE 40 MG/4 ML INJ (LASIX) IVP ONE (08:00)
[2020-04-06] MEDS: ALBUTEROL/IPRATROP (COMBIVENT RESPIMAT) 4 GM INHALER IH SCH ×2 (08:24→09:08)
--- NOTE | 2020-04-06 09:57 | Cardiology Progress Note ---
Subjective Date Seen by Provider: Apr 06, 2020 Time Seen by Provider: 09:56 Subjective/Events-last exam Patient is sitting in a chair, feeling better, still confused Review of Systems General: No Chills, No Night Sweats; Fatigue, Malaise; No Appetite, No Other HEENT: No Head Aches, No Visual Changes, No Eye Pain, No Ear Pain, No Dysphasia, No Sinus Congestion, No Post Nasal Drip, No Sore Throat, No Other Pulmonary: No Dyspnea, No Cough, No Pleuritic Chest Pain, No Other Cardiovascular: Edema; No: Chest Pain, Palpitations, Orthopnea, Paroxysmal Noc. Dyspnea, Lt Headedness, Other Objective-Cardiology Exam Last Set of Vital Signs Vital Signs 04/03/20 04/06/20 04/06/20 11:04 08:00 09:08 Temp 36.0 Pulse 79 Resp 18 B/P (MAP) 134/75 (94) Pulse Ox 91 O2 Delivery Room Air O2 Flow Rate 2.00 FiO2 21 Capillary Refill : Less Than 3 SecondsLess Than 3 Seconds I&O Intake and Output 04/06/20 00:00 Intake Total 3880 ml Output Total 4450 ml Balance -570 ml Intake Oral 870 ml IV Total 3010 ml Output Urine Total 4450 ml General: Alert, Oriented X3, Cooperative HEENT: Atraumatic, PERRLA Neck: Supple, No JVD, No Thyromegaly Lungs: Clear to Auscultation, Normal Air Movement Heart: Regular Rate, Normal S1, Normal S2, No Murmurs Abdomen: Normal Bowel Sounds, Soft, No Tenderness, No Hepatosplenomegaly, No Ma sses Extremities: No Clubbing, No Cyanosis, No Edema, Normal Pulses, No Tenderness/Swelling Skin: No Rashes, No Breakdown, No Significant Lesion Neuro: Normal Gait, Normal Speech, Strength at 5/5 X4 Ext, Normal Tone, Sensation Intact Psych/Mental Status: Mental Status NL, Mood NL A/P-Cardiology Admission Diagnosis Pneumonia Complete heart block Hypertension Hyperlipidemia Assessment/Plan Possible pneumonia, receiving empiric therapy, managed by primary care team Complete heart block, status post dual-chamber pacemaker implantation done on April 01, 2020, received Ancef pre-and post operatively and she was discharged on Ceftin. Congestive heart failure, acute left ventricular systolic dysfunction probably ischemic in nature, ejection fraction 35-40 percent, I started her on beta blockers and losartan. Continue with Lasix. Probable underlying coronary artery disease, recommend conservative management at this time Hypertension, monitor her tolerance and response to beta blockers and ARB Hyperlipidemia has been on simvastatin Change in mental status, generalized fatigue and dementia. Managed by primary care team Clinical Quality Measures DVT/VTE Risk/Contraindication: Risk Factor Score Per Nursin RFS Level Per Nursing on Admit: 4+=Very High NAJMA GALVAN MD Apr 06, 2020 09:57
[2020-04-06] MEDS ORDERED: MULT-1136 PO (10:01)
[2020-04-06] MEDS ORDERED: IBUP-2473 PO (10:01)
[2020-04-06] MEDS ORDERED: CEFU500T63 PO (10:02)
--- NOTE | 2020-04-06 10:02 | NUR ---
SPOKE WITH THE PT- SHE WAS UNSURE OF HER MEDICATIONS AND WANTED ME TO CALL HER JACINDA. I SPOKE WITH JACINDA AND HE WAS ALSO UNSURE OF HER MEDS BUT DID HAVE THE PATIENTS DAUGHTER THERE ([place]) AND SHE WAS ABLE TO GO OVER THE PATIENTS MEDICATIONS WITH ME ALL MEDS ARE LISTED ON THE EXT MED HISTORY OTC MEDS: IBUPROF[employer]
[2020-04-06] MEDS ORDERED: MECL-149 PO (10:04)
--- NOTE | 2020-04-06 11:12 | Progress Note ---
Subjective Subjective/Events-last exam Patient up sitting in chair, improved today but still confused. Tolerating PO diet. Review of Systems Pulmonary: Dyspnea Cardiovascular: No: Chest Pain, Palpitations Gastrointestinal: No: Nausea, Vomiting, Abdominal Pain Musculoskeletal: arm pain (Left) Neurological: Weakness, Incoordination, Confusion Objective Exam Last Set of Vital Signs Vital Signs Date Time Temp Pulse Resp B/P (MAP) Pulse Ox O2 Delivery O2 Flow Rate FiO2 04/06/20 09:08 91 Room Air 04/06/20 08:00 36.0 79 18 134/75 (94) 04/03/20 11:04 21 04/03/20 11:04 2.00 Capillary Refill : Less Than 3 SecondsLess Than 3 Seconds I&O Intake and Output 04/05/20 23:59 Intake Total 3880 ml Output Total 4450 ml Balance -570 ml Intake Oral 870 ml IV Total 3010 ml Output Urine Total 4450 ml General: Alert, No Acute Distress HEENT: Mucous Memb Moist/[place] Lungs: Clear to Auscultation, Normal Air Movement Heart: Regular Rate, No Murmurs Abdomen: Normal Bowel Sounds, Soft, No Tenderness, No Masses Extremities: No Edema, No Tenderness/Swelling Neuro: Sensation Intact, Cranial Nerves 3-12 NL, Other (Oriented to person and place only) Results/Procedures Lab Laboratory Tests 04/05/20 15:20: B-Type Natriuretic Peptide 3462.8H Microbiology 04/02/20 Blood Culture - Preliminary, Resulted No growth 04/02/20 Urine Culture - Final, Complete NO GROWTH Assessment/Plan Assessment/Plan (1) Altered mental state Status: Acute Assessment & Plan: 04/06: infection vs recent surgery, seems to be improving, empirically treating for PNA, continue to monitor, minimized any sedating medications Qualifiers: Qualified Codes: R41.82 - Altered mental status, unspecified (2) Shortness of breath Status: Acute Assessment & Plan: 04/06: CHF vs PNA (3) Complete heart block, post-surgical Status: Acute Assessment & Plan: 04/06: Recent pacemaker placement, Dr Fried consulted, appreciate recommendations (4) Acute systolic CHF (congestive heart failure) Status: Acute Assessment & Plan: 04/06: Elevated BNP, started on Lasix today, echo pending (5) Debility Status: Acute Assessment & Plan: 04/06: Will place IRF consult vs SNF placement Clinical Quality Measures DVT/VTE Risk/Contraindication: Risk Factor Score Per Nursin RFS Level Per Nursing on Admit: 4+=Very High JOHNY GLASGOW MD Apr 06, 2020 11:11
[2020-04-06] MEDS: ENOXAPARIN 40 MG/0.4 ML (LOVENOX) SYR SC SCH (13:07)
--- NOTE | 2020-04-06 13:51 | Physical Therapy Evaluation ---
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 9-Wmjaswoxpm-uursbvs completes the activity by him/herself with no assistance from a helper. 5-Set-up or Clean-up Assistance-helper sets up or cleans up; patient completes activity. [place] assists only prior to or following the activity. 4-Supervision or Touching Assistance-helper provides verbal cues and/or touching/steadying and/or contact guard assistance as patient completes activity. Assistance may be provided throughout the activity or intermittently. 3-Partial/Moderate Assistance-helper does LESS THAN HALF the effort. [place] li fts, holds or supports trunk or limbs, but provides less than half the effort. 2-Substantial/Maximal Assistance-helper does MORE THAN HALF the effort. [place] lifts or holds trunk or limbs and provides more than half the effort. 2-Aylqpwzgo-xegibb does ALL the effort. Patient does none of the effort to complete the activity. Or, the assistance of 2 or more helpers is required for the patient to complete the activity. If activity was not attempted, code reason: 7-Patient Refused. 9-Not Applicable-not attempted and the patient did not perform the activity before the current illness, exacerbation or injury. 10-Not Attempted due to Environmental Limitations-(lack of equipment, weather restraints, etc.). 88-Not Attempted due to Medical Conditions or Safety Concerns. Bed Mobility: 5 Transfers (B,C,W/C): 5 Gait: 5 Indoor Mobility (Ambulation): Needed Some Help Stairs: Needed Some Help Prior Devices Use: Other-see list below Prior Device Use: SBQC PT Evaluation-Current Subjective PT observed patient up with family and nursing staff ambulating in hallway minimal assist x 600' this a.m. Patient and family agree to PT. Pain Numeric Pain Scale: 0-No Pain Location: No Pain Reported Objective Patient Orientation: Confused Attachments: Kern Catheter ROM/Strength ROM Lower Extremities bilateral LE WFL Strength Lower Extremities 3/5 grossly bilateral LE Integumentary/Posture Integumentary refer to nursing notes Bladder Incontinence: Kern Cath Posture WFL Neuromuscular (Tone, Coordination, Reflexes) festinating gait with gait training with SBQC Sensory Vision: Wears Glasses Hearing: Functional Sensation Right Lower Extremit: Intact Sensation Left Lower Extremity: Intact Transfers Roll Left to Right (QC): 3 Sit to Lying (QC): 3 Lying to Sitting/Side of Bed(Q: 3 Sit to Stand (QC): 3 Chair/Ehu-tl-Omgit Xfer(QC): 3 Gait Does the Patient Walk?: Yes Mode of Locomotion: Walk Anticipated Mode of Locomotion: Walk Walk 10 feet (QC): 3 Walk 50 ft with 2 Turns(QC): 3 Walk 150 ft (QC): 3 Distance: 450' Gait Assistive Device: Cane Small Base Quad Comments/Gait Description festinating gait requiring multiple standing recovery periods to correct pattern (unable to correct) Wheelchair Training Does the Pt Use a Wheelchair?: No Balance Sitting Static: Normal Sitting Dynamic: Normal Standing Static: Fair Standing Dynamic: Fair (Fair -) Assessment/Needs 89 y.o. female, will benefit from skilled PT to address functional strength and mobility to improve current LOF. Patient is currently at a high fall risk due to weakness and festinating gait sequence. Family educated and aware. Per daughter, another daughter has taken a 3 month RAMESH to stay with patient. From a PT standpoint, Patient is unsafe to be home alone with spouse and will require assistance to ensure safety. Family is aware of this as well. Family is determined to take patient home with home health per their report. This PT consulted with SW on family request and is aware of this. Rehab Potential: Fair PT Mcfp Goals Mcfp Goals PT Marine Structural Designer Goals Time Frame: Apr 18, 2020 Roll Left & Right (QC): 4 Sit to Lying (QC): 4 Lying-Sitting on Side/Bed(QC): 4 Sit to Stand (QC): 4 Chair/Mae-sq-Jjfhd Xfer(QC): 4 Toilet Transfer (QC): 4 Does the Patient Walk: Yes Walk 10 feet (QC): 4 Walk 50ft with 2 Turns (QC): 4 Walk 150 ft (QC): 4 PT Plan Problem List Problem List: Activity Tolerance, Functional Strength, Safety, Balance, Gait, Transfer, Bed Mobility Treatment/Plan Treatment Plan: Continue Plan of Care Treatment Plan: Bed Mobility, Education, Functional Activity Libby, Functional Strength, Gait, Safety, Therapeutic Exercise, Transfers Treatment Duration: Apr 18, 2020 Frequency: 6 times per week Estimated Hrs Per Day: .25 hour per day Patient and/or Family Agrees t: Yes Safety Risks/Education Patient Education: Gait Training, Safety Issues Time/GCodes Time In: 1350 Time Out: 1415 Total Billed Treatment Time: 25 Total Billed Treatment 1 visit EVModC 10 min GT 15 min JARRELL STOCK PT Apr 06, 2020 13:51
--- NOTE | 2020-04-06 14:13 | NUR ---
CM/SS: Telephone Call to son Qasim based on Social Work Consult for out of home placement and group home. Qasim [phone] would like for pt to go to a facility as long as they can visit. He is informed that most facilities do not have visitors still due to COVID 19. He wants her to go to somewhere where they can visit. He feels as if she will not do well without visitors. He would like to have pt come home with Home Care. He reports his sister will be at the hospital today and this worker can talk with her. Linda, daughter of pt is present and says to this worker she does not want her to go to a group home, and that they want to take her home and care for her. They have one family member that has taken off three months to care for pt as well as several others willing to help with pt's care. They are given information about Home Care and do select [facility] out of [place] to care for pt. This worker will follow up.
--- NOTE | 2020-04-06 14:23 | NUR ---
"RD ASSESSMENT PMHx: hypercholesterolemia; HTN PT INTERACTION: Pt was awake and pleasant during nutrition assessment. Note pt has AMS, per chart review. Pt states current appetite is great. Note avg PO intake 43% x3d, per chart review. Pt states following a regular diet at home, and has no issues with chewing/swallowing food. Pt states no recent issues with nausea, vomiting, constipation, or diarrhea, and that her last BM was 7/5. Pt states unsure of recent wt changes. Note unable to determine recent wt hx, per chart review. ABNORMAL NUTRITION-RELATED LAB VALUES LOW: Ca 7.4; alb 3.1 HIGH: Gl 114; glu 144; AST 71 Est. kcal needs: 9428-7199 kcal | 20-25 kcal/kg Est. Pro needs: 49-61 g Pro | 0.8-1.0 g Pro/kg PES STATEMENT: Inadequate oral intake (NI-2.1) related to loss of appetite as evidenced by pt interview | avg PO intake 43% x3d INTERVENTION: Continue with current appetite of Heart Healthy diet. Add Ensure Enlive (vary) to meals TID, for increased kcal intake. Provides 350 kcal and 13 g Pro per serving. Will continue to follow and reassess as pt needs, intake, and status change. MONITOR/EVALUATE: PO Intake; Plan of Care; Hydration Status; Weight Status; Lab Values Kaci Orr, MS, RD, LD"
--- NOTE | 2020-04-06 15:29 | NUR ---
IRF Evaluation Determination: Denied Explanation: Chart review complete and findings further discussed with treating therapist. It appears patient is ambulating (450ft, SBQC), as well as completing bed mobility and transfers with partial/moderate assistance. Patient presents with weakness, AMS, a restricted L UE as it is in a sling (fx/bone stimulator, pacemaker placement), and "festinating gait requiring multiple standing recovery periods to correct pattern (unable to correct)." With all findings taken into consideration, it has been determined the patient would not be able to tolerate intensive therapies, nor significantly benefit from said therapies. Thank you for this referral.
--- NOTE | 2020-04-06 15:39 | Occupational Therapy Eval ---
OT Evaluation-General/PLF Medical Diagnosis Admission Date Apr 03, 2020 at 00:15 Medical Diagnosis: pneumonia/AMS/sepsis Onset Date: Apr 03, 2020 Therapy Diagnosis Therapy Diagnosis: decreased ADL status Precautions Precautions/Isolations: Fall Prevention, Standard Precautions Weight Bear Status WBS (Ord/Comment): sling restricted to L arm - fxs and pacemaker placement Referral Physician: Osmar Referral Reason: Evaluation/Treatment Medical History Pertinent Medical History: HTN Additional Medical History bowel surgery, vertigo, [place]AL[place]ITSIK Current History EMS from home with AMS, pacemaker placed 04/03/2020. Multiple falls at home, fx L humerus for at least 3 months, wears sling/immobilizer and has a bone stimulator at home Social History Home: Single Level Current Living Status: Spouse Entry Into Home: Stairs With Railing Steps Into Home: 1 ADL-Prior Level of Function SCALE: Activities may be completed with or without assistive devices. 5-Dgruivhlob-wctulhd completes the activity by him/herself with no assistance from a helper. 5-Set-up or Clean-up Assistance-helper sets up or cleans up; patient completes activity. [place] assists only prior to or following the activity. 4-Supervision or Touching Assistance-helper provides verbal cues and/or touching/steadying and/or contact guard assistance as patient completes activity . Assistance may be provided throughout the activity or intermittently. 3-Partial/Moderate Assistance-helper does LESS THAN HALF the effort. [place] lifts, holds or supports trunk or limbs, but provides less than half the effort. 2-Substantial/Maximal Assistance-helper does MORE THAN HALF the effort. [place] lifts or holds trunk or limbs and provides more than half the effort. 2-Dthjmfoyp-jqxkkl does ALL the effort. Patient does none of the effort to complete the activity. Or, the assistance of 2 or more helpers is required for the patient to complete the activity. If activity was not attempted, code reason: 7-Patient Refused. 9-Not Applicable-not attempted and the patient did not perform the activity before the current illness, exacerbation or injury. 10-Not Attempted due to Environmental Limitations-(lack of equipment, weather restraints, etc.). 88-Not Attempted due to Medical Conditions or Safety Concerns. ADL PLOF Comments Pt reports requiring assistance with ADLs at home. She needs help with donning/doffing shirt due to having a sling, and assistance with donning pants due to "sometimes putting both my legs in one hole". She also requires assistance with showering. She uses a cane for functional mobility. Pt currently has a tub/shower but has plans for a walk in shower to be installed starting tomorrow (04/07/2020). She is planning on taking sponge baths when she gets home due to just having a pacemaker placed. Pt's daughter took a 3 month RAMESH from work in order to assist pt at d/c. Self Care: Needed Some Help Functional Cognition: Needed Some Help DME/Equipment: Tub/Shower DME/Equipment Comments cane OT Current Status Subjective Pt laying in bed, family member present. Family expresses wishes for pt to d/c home instead of a residential, stating one family member took a 3 month RAMESH in order to provide 24/04 care to pt. Mental Status/Objective Patient Orientation: Confused Attachments: Kern Catheter Current Glasses/Contacts: Yes Hearing Aids: Yes Dentures/Partials: Yes Hand Dominance: Right Upper Extremity ROM Not tested due to recent placemaker placement and L humerus fx. Pt unable to make full fist with LUE Upper Extremity Coordination WFL, pt able to complete thumb opposition to each finger bilaterally Upper Extremity Sensation pt denies tingling/numbness BUEs Upper Extremity Strength not tested due to recent pacemaker placement and L humerus fx. Other Treatments Pt laying in bed with family member present. Pt and family member agreeable to OT evaluation at this time. OT educated pt and family on purpose and benefits of OT while pt is in the hospital, they verbalized understanding. Pt and family provide information about PLOF and home set up, stating the bathroom is getting remodelled starting tomorrow in order for a walk in shower to be placed. OT educated pt and family on safety in the home including recommendations for a shower chair/bench, they verbalize understanding. Pt then participated in UE screen. Pt's family expresses wishes for pt to return home after hospitalization instead of a residential. OT provided further safety education as well as education on POC. Pt and family verbalized understanding. Pt declines further OT tx on this date stating she would like to rest. Post OT tx, pt laying in bed, call light in reach and all needs met, family present. Education OT Patient Education: Correct positioning, Energy conservation, Modified ADL techniques, Progress toward Goal/Update tx plan, Purpose of tx/functional activities, Rehab process, Safety issues Teaching Recipient: Patient, Family Teaching Methods: Discussion Response to Teaching: Verbalize Understanding OT Beam House Inspector Goals Beam House Inspector Goals Time Frame: Apr 17, 2020 Eating (QC): 6 Oral Hygiene (QC): 4 Toileting Hygiene (QC): 3 Shower/Bathe Self (QC): 3 Upper Body Dressing (QC): 3 Lower Body Dressing (QC): 3 On/Off Footwear (QC): 3 1=Demonstrate adherence to instructed precautions during ADL tasks. 2=Patient will verbalize/demonstrate understanding of assistive devices/modifications for ADL. 3=Patient will improve strength/tolerance for activity to enable patient to perform ADL's. OT Education/Plan Problem List/Assessment Assessment: Decreased Activ Tolerance, Decreased UE Strength, Impaired I ADL's, Impaired Self-Care Skills, Restricted Funct UE ROM Discharge Recommendations Plan/Recommendations: Continue POC Therapy Discharge Recommendati: Post Acute OT Equpiment Recommendations-D/C: Bath Chair Treatment Plan/Plan of Care Patient would benefit from OT for education, treatment and training to promote independence in ADL's, mobility, safety and/or upper extremity function for ADL's. Plan of Care: ADL Retraining, Functional Mobility, UE Funct Exercise/Act Treatment Duration: Apr 17, 2020 Frequency: 5 times per week Estimated Hrs Per Day: .25 hour per day Rehab Potential: Fair Time/GCodes Start Time: 15:08 Stop Time: 15:25 Total Time Billed (hr/min): 17 Billed Treatment Time 1, WALT SPEAR OT Apr 06, 2020 15:39
[2020-04-06] MEDS: cefTRIAXone 1,000 MG/SWFI 10 ML IV PUSH IV SCH ×2 (21:09)
[2020-04-06] MEDS: AZITHROMYCIN 250 MG TAB (ZITHROMAX) PO SCH (21:09)
[2020-04-07 04:09] VITALS: BP 112/71
[2020-04-07 05:52] LABS: HEMOGLOBIN 13.8 G/DL (11.5-16.0); MEAN PLATELET VOLUME 9.9 FL (7.4-10.4); RED CELL DISTRIBUTION WIDTH 13.9 % (10.0-14.5); WHITE BLOOD COUNT 6.4 10^3/uL (4.3-11.0)
[2020-04-07 06:06] LABS: ALBUMIN 2.9 GM/DL (3.2-4.5); CHLORIDE 109 MMOL/L (98-107); POTASSIUM 3.9 MMOL/L (3.6-5.0); SODIUM 142 MMOL/L (135-145)
[2020-04-07 06:07] LABS: CALCIUM 8.8 MG/DL (8.5-10.1)
[2020-04-07 06:08] LABS: GLUCOSE 92 MG/DL (70-105); TOTAL PROTEIN 5.4 GM/DL (6.4-8.2)
[2020-04-07 06:10] LABS: BILIRUBIN,TOTAL 0.5 MG/DL (0.1-1.0); CARBON DIOXIDE 23 MMOL/L (21-32)
[2020-04-07 06:12] LABS: ALKALINE PHOSPHATASE 61 U/L (40-136); CREATININE SERUM 0.76 MG/DL (0.60-1.30); GFR ESTIMATED > 60
[2020-04-07 06:13] LABS: BUN/CREATININE RATIO 24
[2020-04-07 06:15] LABS: ALANINE AMINOTRANSFERASE 42 U/L (0-55)
[2020-04-07 08:00] VITALS: BP 111/72
--- NOTE | 2020-04-07 08:49 | Occupational Ther Daily Note ---
OT Current Status-Daily Note Subjective Pt seated in chair, agreeable to OT tx with focus on ADLs. She did not verbalize any pain during tx. Mental Status/Objective Patient Orientation: Confused Attachments: Kern Catheter ADL-Treatment Therapy Code Descriptions/Definitions Functional [place] Measure: 0=Not Assessed/NA 4=Minimal Assistance 1=Total Assistance 5=Supervision or Setup 2=Maximal Assistance 6=Modified [place] 3=Moderate Assistance 7=Complete IndependenceSCALE: Activities may be completed with or without assistive devices. 0-Agesltrcci-smlxzoo completes the activity by him/herself with no assistance from a helper. 5-Set-up or Clean-up Assistance-helper sets up or cleans up; patient completes activity. [place] assists only prior to or following the activity. 4-Supervision or Touching Assistance-helper provides verbal cues and/or touching/steadying and/or contact guard assistance as patient completes activity. Assistance may be provided throughout the activity or intermittently. 3-Partial/Moderate Assistance-helper does LESS THAN HALF the effort. [place] lifts, holds or supports trunk or limbs, but provides less than half the effort. 2-Substantial/Maximal Assistance-helper does MORE THAN HALF the effort. [place] lifts or holds trunk or limbs and provides more than half the effort. 6-Egpfbgviq-pochli does ALL the effort. Patient does none of the effort to complete the activity. Or, the assistance of 2 or more helpers is required for the patient to complete the activity. If activity was not attempted, code reason: 7-Patient Refused. 9-Not Applicable-not attempted and the patient did not perform the activity before the current illness, exacerbation or injury. 10-Not Attempted due to Environmental Limitations-(lack of equipment, weather restraints, etc.). 88-Not Attempted due to Medical Conditions or Safety Concerns. Bathing Location: L Arm, Chest, Abdomen, Buttocks, Perineal Area Shower/Bathe Self (QC): 3 (Pt able to wash parts listed above, required assistance with washing R arm, BLE legs. CGA during stand with quad cane for washing periarea & buttocks.) Upper Body Dressing (QC): 2 (Pt attempted to unbutton shirt, but was unsuccessful requiring assistance. OT assisted pt with unbuttoning shirt, and doffing. OT then provided pt with hospital gown, assisting her with threading her L arm and tying gown.) Toileting Hygiene (QC): 2 (Pt required assistance with managing clothes up/down, she was able to complete washing periarea and buttocks with CGA.) Other Treatment Pt seated in recliner, agreeable to OT tx with focus on ADLs. Pt completed sponge bath at recliner, CGA during stand at quad cane. After sponge bath, OT educated pt on yellow inside finisher sponge, pt demo'd understanding performing x10 reps BUEs. OT educated pt on importance of exercise in order to increase BUE inside finisher strength for functional activities, instructing pt to perform exercises throughout the day, she verbalized understanding. Post OT tx, pt seated in recliner, chair alarm on, call light in reach and all needs met. Education OT Patient Education: Correct positioning, Energy conservation, Exercise program, Modified ADL techniques, Progress toward Goal/Update tx plan, Purpose of tx/functional activities, Transfer techniques Teaching Recipient: Patient Teaching Methods: Discussion Response to Teaching: Verbalize Understanding, Reinforcement Needed OT Penitentiary Goals Penitentiary Goals Time Frame: Apr 17, 2020 Eating (QC): 6 Oral Hygiene (QC): 4 Toileting Hygiene (QC): 3 Shower/Bathe Self (QC): 3 Upper Body Dressing (QC): 3 Lower Body Dressing (QC): 3 On/Off Footwear (QC): 3 1=Demonstrate adherence to instructed precautions during ADL tasks. 2=Patient will verbalize/demonstrate understanding of assistive devices/modifications for ADL. 3=Patient will improve strength/tolerance for activity to enable patient to perform ADL's. OT Education/Plan Problem List/Assessment Assessment: Decreased Activ Tolerance, Decreased UE Strength, Impaired I ADL's, Impaired Self-Care Skills, Restricted Funct UE ROM Discharge Recommendations Plan/Recommendations: Continue POC Treatment Plan/Plan of Care Patient would benefit from OT for education, treatment and training to promote independence in ADL's, mobility, safety and/or upper extremity function for ADL's. Plan of Care: ADL Retraining, Functional Mobility, UE Funct Exercise/Act Treatment Duration: Apr 17, 2020 Frequency: 5 times per week Estimated Hrs Per Day: .25 hour per day Rehab Potential: Fair Time/GCodes Start Time: 08:22 Stop Time: 08:39 Total Time Billed (hr/min): 17 Billed Treatment Time 1, ADL WALT ESCOBAR OT Apr 07, 2020 08:49
--- NOTE | 2020-04-07 09:15 | Cardiology Progress Note ---
Subjective Date Seen by Provider: Apr 07, 2020 Time Seen by Provider: 08:30 Subjective/Events-last exam Patient is sitting up in chair, eating breakfast, no new complaints. States breathing is improved. Review of Systems General: No Chills, No Night Sweats, No Fatigue, No Malaise, No Appetite, No Other HEENT: No Head Aches, No Visual Changes, No Eye Pain, No Ear Pain, No Dysphasia, No Sinus Congestion, No Post Nasal Drip, No Sore Throat, No Other Pulmonary: Dyspnea; No Cough, No Pleuritic Chest Pain, No Other Cardiovascular: No: Chest Pain, Palpitations, Orthopnea, Paroxysmal Noc. Dyspnea, Edema, Lt Headedness, Other Objective-Cardiology Exam Last Set of Vital Signs Vital Signs 04/03/20 04/06/20 04/07/20 11:04 14:28 08:00 Temp 36.0 Pulse 80 Resp 16 B/P (MAP) 111/72 (85) Pulse Ox 90 O2 Delivery Room Air O2 Flow Rate 2.00 FiO2 21 Capillary Refill : Less Than 3 SecondsLess Than 3 Seconds I&O Intake and Output 04/07/20 00:00 Intake Total 1260 ml Output Total 1275 ml Balance -15 ml Intake Oral 1250 ml IV Total 10 ml Output Urine Total 1275 ml General: Alert, No Acute Distress HEENT: Atraumatic, Mucous Memb Moist/[place] Neck: Supple, No JVD, No Thyromegaly Lungs: Clear to Auscultation, Normal Air Movement Heart: Regular Rate, No Murmurs Abdomen: Normal Bowel Sounds, Soft, No Tenderness, No Masses Extremities: No Edema, No Tenderness/Swelling Skin: No Rashes, No Breakdown, No Significant Lesion Neuro: Sensation Intact, Cranial Nerves 3-12 NL, Other (Oriented to person and place only) Psych/Mental Status: Mental Status NL, Mood NL Results Lab Laboratory Tests 04/07/20 05:41 A/P-Cardiology Admission Diagnosis Pneumonia Complete heart block Hypertension Hyperlipidemia Assessment/Plan Possible pneumonia, receiving empiric therapy, managed by primary care team Complete heart block, 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 Continue to monitor Congestive heart failure, acute left ventricular systolic dysfunction probably ischemic in nature, ejection fraction 35-40 percent, started on beta blockers and losartan. Continue with Lasix. Probable underlying coronary artery disease, recommend conservative management at this time Hypertension, monitor her tolerance and response to beta blockers and ARB Hyperlipidemia has been on simvastatin Change in mental status, generalized fatigue and dementia. Managed by primary care team Patient was seen and evaluated with Vanita, examination performed, management plan was discussed, agree with the current scribed note, I made few changes to the note using Italic font Patient was seen at bedside sitting comfortably, still having some shortness of breath, still confused Continue with current treatment and monitor. Clinical Quality Measures DVT/VTE Risk/Contraindication: Risk Factor Score Per Nursin RFS Level Per Nursing on Admit: 4+=Very High VANITA ISLAS Apr 07, 2020 09:15 NAJMA GALVAN MD Apr 07, 2020 09:39
[2020-04-07] MEDS ORDERED: CARVEDILOL 3.125 MG (COREG) TABLET PO SCH (09:45)
[2020-04-07] MEDS ORDERED: KCL 10 MEQ TAB (MICRO K) PO SCH (09:45)
[2020-04-07] MEDS ORDERED: FUROSEMIDE 40 MG/4 ML INJ (LASIX) IVP NR (09:45)
[2020-04-07] MEDS ORDERED: ALBUTEROL/IPRATROP (COMBIVENT RESPIMAT) 4 GM INHALER IH SCH ×2 (11:00→19:00)
--- NOTE | 2020-04-07 11:58 | Discharge Summary ---
Discharge Summary Reconcile Patient Problems Problems Reviewed?: Yes Instructions for Patient Via [facility] [employer], Assessment/Instructions LLL PNA: Complete antibiotics Altered Mental Status: Resolved Complete Heart block s/p pacemaker placement Debility: PT/OT Mild Systolic dysfunction: EF 35-40% with Grade I diastolic Dysfunction Physician to follow Patient: Self Discharge Diet for Home: Cardiac Diet Hospital Course Date of Admission: Apr 03, 2020 at 00:15 Admission Diagnosis : Family Physician/Provider: Claudy Enrique DO Date of Discharge: 04/07/20 Discharge Diagnosis: LLL PNA Complete Heart block s/p pacemaker Altered Mental Status Mild systolic dysfunction EF 35-40% Debility Hospital Course: 89 yo F that was admitted for altered mental status. Patient was found to have concerns for LLL PNA and empirically treated. She was titrated off oxygen and her mental status improved yesterday when she was back to her baseline. She is still requiring assistance with ambulation and will be discharged home with home health. Patient recently was found to have profound bradycardia and was in complete heart block and had pacemaker placed. On day of discharge patient was at her baseline and desires to go home with home health. Labs and Pending Lab Test: Laboratory Tests 04/07/20 05:41: White Blood Count 6.4, Red Blood Count 4.65, Hemoglobin 13.8, Hematocrit 42, Mean Corpuscular Volume 90, Mean Corpuscular Hemoglobin 30, Mean Corpuscular Hemoglobin Concent 33, Red Cell Distribution Width 13.9, Platelet Count 232, Mean Platelet Volume 9.9, Sodium Level 142, Potassium Level 3.9, Chloride Level 109H, Carbon Dioxide Level 23, Anion Gap 10, Blood Urea Nitrogen 18, Creatinine 0.76, Estimat Glomerular Filtration Rate > 60, BUN/Creatinine Ratio 24, Glucose Level 92, Calcium Level 8.8, Corrected Calcium 9.7, Total Bilirubin 0.5, Aspartate Amino Transf (AST/SGOT) 41H, Alanine Aminotransferase (ALT/SGPT) 42, Alkaline Phosphatase 61, Total Protein 5.4L, Albumin 2.9L Microbiology 04/02/20 Blood Culture - Preliminary, Resulted No growth 04/02/20 Urine Culture - Final, Complete NO GROWTH Home Meds Active Reported Meclizine HCl 25 Mg Tablet 25 Mg PO BID Cefuroxime (Cefuroxime Axetil) 500 Mg Tablet 500 Mg PO BID FILLED 04-02-2020 #10/5 DAY SUPPLY Ibuprofen 200 Mg Tablet 400 Mg PO Q8H PRN Multivitamin 1 Each Tablet 1 Each PO DAILY Lisinopril 20 Mg Tablet 20 Mg PO DAILY Simbrinza 1%-0.2% Eye Drops (Brinzolamide/Brimonidine Tart) 8 Ml Drops.susp 1 Drop OU BID Metoprolol Succinate 25 Mg Tab.er.24h 25 Mg PO DAILY Simvastatin 20 Mg Tablet 20 Mg PO HS Cons[address] Dr Fried: Cardiology Patient Allergies: Coded Allergies: No Known Drug Allergies (Unverified , 08/15/19) Home Health Need/Face to Face Date of Face to Face: Apr 07, 2020 Clinical Findings: Generalized weakness and fatigue, Instability, Shortness of breath, Unsteady gait I have seen Pt [id number]: Yes Discharged To: Home Diagnosis/Conditions: See Above Patient is Homebound due to: Abran fall risk due to instabilty, Muscle weakness, Shortness of breath/distress Homebound Status Due to the above stated illness, injury or surgical procedure (medical condition or diagnosis) and associated clinical findings, the patient is homebound because of his/her inability to leave home except with aid of a supportive device and/or person AND leaving the home requires a considerable and taxing effort or is medically contraindicated. Pt req the following assistanc: Aid of another person, Walker Home Health Nursing Orders Home Health Services Order: Nursing Services, Church History Teacher-Evaluate & Treat, Physical Therapy-Evaluate & Treat Bandage changes on surgical wound Home Health Infusion Therapy Line Start Date: Apr 03, 2020 Therapy Orders Therapy Orders: OT (must have SN or PT order), Physical Therapy, PT to assess for OT Therapy Specific Orders: Eval assistive deivces, Teach enviro modifications/safety, Gait training, Increase strength/endurance Certify Stmt I certify that this patient is under my care and that I, a nurse practitioner or a physician; a lens assistant working with me, had a face to face encounter that - meets the physician face to face encounter requirements with this patient as dated. Discharge Physical Exam General: Alert, Oriented X3, No Acute Distress HEENT: Mucous Memb Moist/[place] Lungs: Clear to Auscultation, Normal Air Movement Heart: Regular Rate, No Murmurs Abdomen: Normal Bowel Sounds, Soft, No Tenderness, No Masses Extremities: Other (trace LE swelling bilaterally) Skin: Other (Surgical wound: Left upper chest: C/D/I) Neuro: Normal Speech, Sensation Intact, Cranial Nerves 3-12 NL Psych/Mental Status: Mental Status NL, Mood NL JOHNY GLASGOW MD Apr 07, 2020 11:56
[2020-04-07 12:00] VITALS: BP 111/76
[2020-04-07] MEDS ORDERED: CEFD300C3 PO (12:01)
[2020-04-07] MEDS ORDERED: LOSA25TA41 PO (12:01)
[2020-04-07] MEDS ORDERED: CARV3.122 PO (12:01)
[2020-04-07] MEDS ORDERED: FURO20TA4 PO (12:01)
--- NOTE | 2020-04-07 12:02 | Discharge Summary ---
Discharge [facility] Discharge Medications New, Converted or Re-Newed RX: Transmitted to Pharmacy New Medications: Cefdinir (Cefdinir) 300 Mg Capsule 300 MG PO BID, #10 CAP Carvedilol (Carvedilol) 3.125 Mg Tablet 3.125 MG PO BID, #60 TAB Furosemide (Furosemide) 20 Mg Tablet 20 MG PO DAILY, #30 TAB Losartan Potassium (Losartan Potassium) 25 Mg Tablet 25 MG PO DAILY, #30 TAB Continued Medications: Brinzolamide/Brimonidine Tart (Simbrinza 1%-0.2% Eye Drops) 8 Ml Drops.susp 1 DROP OU BID, EA Meclizine HCl (Meclizine HCl) 25 Mg Tablet 25 MG PO BID, TAB Multivitamin (Multivitamin) 1 Each Tablet 1 EACH PO DAILY, TAB Simvastatin (Simvastatin) 20 Mg Tablet 20 MG PO HS, TAB Discontinued Medications: Cefuroxime Axetil (Cefuroxime) 500 Mg Tablet 500 MG PO BID, TAB FILLED 04-02-2020 #10/5 DAY SUPPLY Ibuprofen (Ibuprofen) 200 Mg Tablet 400 MG PO Q8H PRN for PAIN-MILD (1-4), TAB Lisinopril (Lisinopril) 20 Mg Tablet 20 MG PO DAILY, TAB Metoprolol Succinate (Metoprolol Succinate) 25 Mg Tab.er.24h 25 MG PO DAILY, TAB Activity & Diet Discharge Diet: Cardiac Diet Orders-Post D/C & Referrals Pneu Vac Indicated: Yes JOHNY GLASGOW MD Apr 07, 2020 12:02
--- NOTE | 2020-04-07 12:23 | Physician Query Clarification ---
"Physician Query-General Query to Physician: The medical record reflects the following clinical scenario: History/Risk factors: Parkinsons, Recent surgical procedures Clinical Findings: Family report of Altered Mental status, Lethargy Treatment: Adjusting medications, Observation/assessment of Mental status Question: What condition best reflects the above clinical scenario? Please document response in the Progress notes or Discharge Summary. 1. Encephalopathy 2. Hypoactive Delirium/Altered Mental Status 3. Other , with explanation of the clinical findings 4. Clinically undetermined, no explanation for the clinical findings Please remember a lack of response to the above will prompt a phone page by CDI/coding staff In responding to this query, please exercise your independent professional judgment. The purpose of this communication is to more accurately reflect the complexity of your patients condition. The fact that a question is asked does not imply that any particular answer is desired or expected. Thank you for timely response to this clarification. Sayra Cordoba, MSN, RN RN Specialist-Clinical Doc Improvement CD -Health Info Mgmt Operations [address] [facility] t: [phone] | f: [phone] If you are unable to reach me at my extension, I may be working from home. Please contact me at [phone] PHYSICIAN RESPONSE: Based on the clinical findings in the record, please respond to the query above on this document as an addendum. Physician Response: Physician Response 2, delirium which resolved by time of discharge If you have questions please contact: Mountain Bike Guide: Ext: Thank you for your time and cooperation. Clinical Dairy Farmer/Mountain Bike Guide This is a permanent part of the medical record SAYRA CORDOBA Apr 07, 2020 12:23 JOHNY GLASGOW MD Apr 07, 2020 21:52"
[2020-04-07] MEDS: ENOXAPARIN 40 MG/0.4 ML (LOVENOX) SYR SC SCH (13:09)
--- NOTE | 2020-04-07 13:34 | Physical Therapy Daily Note ---
PT Daily Note-Current Subjective Patient and family agree to PT. Pain Numeric Pain Scale: 0-No Pain Location: No Pain Reported Mental Status Patient Orientation: Confused Transfers SCALE: Activities may be completed with or without assistive devices. 9-Vctpntchna-hgcpiga completes the activity by him/herself with no assistance from a helper. 5-Set-up or Clean-up Assistance-helper sets up or cleans up; patient completes activity. [place] assists only prior to or following the activity. 4-Supervision or Touching Assistance-helper provides verbal cues and/or touching/steadying and/or contact guard assistance as patient completes activity. Assistance may be provided throughout the activity or intermittently. 3-Partial/Moderate Assistance-helper does LESS THAN HALF the effort. [place] lifts, holds or supports trunk or limbs, but provides less than half the effort. 2-Substantial/Maximal Assistance-helper does MORE THAN HALF the effort. [place] lifts or holds trunk or limbs and provides more than half the effort. 7-Xbxijthdd-uslovp does ALL the effort. Patient does none of the effort to complete the activity. Or, the assistance of 2 or more helpers is required for the patient to complete the activity. If activity was not attempted, code reason: 7-Patient Refused. 9-Not Applicable-not attempted and the patient did not perform the activity before the current illness, exacerbation or injury. 10-Not Attempted due to Environmental Limitations-(lack of equipment, weather restraints, etc.). 88-Not Attempted due to Medical Conditions or Safety Concerns. Lying to Sitting/Side of Bed(Q: 3 Sit to Stand (QC): 3 Chair/Tou-qw-Hedzu Xfer(QC): 3 Weight Bearing Right Lower Extremity: Right Full Weight Bearing Left Lower Extremity: Left Full Weight Bearing sling restricted to the left arm - fxs and pace maker placement Gait Training Does the Patient Walk?: Yes Distance: 475' Walk 10 feet (QC): 3 Walk 50 ft with 2 Turns(QC): 3 Walk 150 ft (QC): 3 Gait Assistive Device: Cane Small Base Quad improved gait sequence with decrease in festinating gait, however, did display slight gait deviation due to weakness Assessment Patient is up in chair with family present. Patient will dismiss to home with family and home health on this date. Patient continues to be a high fall risk due to confusion, weakness and decreased safety awareness. Family is aware of concern. PT Senior Safety Support Manager Goals Shelter Goals PT Shelter Goals Time Frame: Apr 18, 2020 Roll Left & Right (QC): 4 Sit to Lying (QC): 4 Lying-Sitting on Side/Bed(QC): 4 Sit to Stand (QC): 4 Chair/Jda-gc-Vhjkk Xfer(QC): 4 Toilet Transfer (QC): 4 Does the Patient Walk: Yes Walk 10 feet (QC): 4 Walk 50ft with 2 Turns (QC): 4 Walk 150 ft (QC): 4 PT Plan Treatment/Plan Treatment Plan: Continue Plan of Care Treatment Plan: Bed Mobility, Education, Functional Activity Libby, Functional Strength, Gait, Safety, Therapeutic Exercise, Transfers Treatment Duration: Apr 18, 2020 Frequency: 6 times per week Estimated Hrs Per Day: .25 hour per day Patient and/or Family Agrees t: Yes Time/GCodes Time In: 1310 Time Out: 1321 Total Billed Treatment Time: 11 Total Billed Treatment 1 visit GT 11 min JARRELL STOCK PT Apr 07, 2020 13:34
--- NOTE | 2020-04-07 14:19 | NUR ---
IV AND TELEMETRY DC'D. RX AND INST REVIEWED WITH PT AND DTR AND VERBALIZED UNDERSTANDING. DC'D PER WC.
--- NOTE | 2020-04-07 14:24 | NUR ---
CM/SS: Visited with pt and daughter as to plan for discharge Plan: Pt will return home with [facility], [place], [facility] by [facility] Summary: Pt is eager to go home. Daughter reports family is getting the home ready for pt to return. They have worked on making the bathroom handicap assessable and redoing the floor in the living area. Pt will also have a daughter stay with her for 3 months as she has taken leave from her job. Daughter reports adult children will rotate to care for pt. Pt is looking forward to being home. Information faxed to [facility] [phone]. The local office in [place] is also called [phone] to be made aware of the referral. Family is given the telephone number for [facility]. Pt and daughter are informed of the contact information for [facility]. Daughter reports a Monday visit is fine, as pt has recruiting assistant appointment on .
[2020-04-08] MEDS ORDERED: FUROSEMIDE 20 MG (LASIX) TAB PO SCH (09:00)
[2020-04-08] MEDS ORDERED: LOSARTAN 25 MG (COZAAR) TAB PO SCH (09:00)
== END 2020-04-07 14:22 | disposition home health service (06) | DRG 193 ==
LOC: EDUNIT# 21:57 → ER 21:59 → 4TH 04-03 00:15
PROVIDERS: ADMIT Internal Medicine; ATTEND Family Medicine
DX: J18.9 Pneumonia, unspecified organism (principal); I50.21 Acute systolic (congestive) heart failure; F05 Delirium due to known physiological condition; G20 Parkinson's disease; I11.0 Hypertensive heart disease with heart failure; E78.00 Pure hypercholesterolemia, unspecified; E78.5 Hyperlipidemia, unspecified; I25.10 Atherosclerotic heart disease of native coronary artery without angina pectoris; Z95.0 Presence of cardiac pacemaker
CPT/HCPCS: 36415; 71045; 80053; 81000; 83605; 83880; 84145; 85007; 85025; 85027; 85379; 85610; 85652; 85730; 86141; 87040; 87088; 87635; 93005; 93041; 93306; 94640; 94760; 96361; 96374; 96375

== ENCOUNTER 2020-08-28 10:44 | Observation (INO) | payer MEDICARE ==
[~2020-08-28] VITALS: Ht 147.3 cm; Wt 58.9 kg
[~2020-08-28 10:44] MED LIST changes: +ACHD5005 PO; +ASPI-999 PO; +BRIN8DRO OU; +CARV3.122 PO; +CEFD300C3 PO; +CLOP75TA28 PO; +DILT120C53 PO; +DULO60CA59 PO; +FURO20TA4 PO; +GABA-490 PO; +HYDR-3817 PO; +IBUP-2473 PO; +ISM60TCR PO; +LISI-552 PO; +LOSA25TA41 PO; +MECL-149 PO; +METO-333 PO; +MONT10TA97 PO; +MULT-1136 PO; +SIMV20TA26 PO
--- NOTE | 2020-08-28 11:24 | Diagnostic Imaging Report ---
Indication: Stroke symptoms Single AP view of the chest is obtained with comparison made study of 04/05/2020. FINDINGS: Heart size and pulmonary vascularity are within normal limits, and the lungs are clear, bilaterally. IMPRESSION: Unremarkable chest. Dictated by: Dictated on workstation # [id number]
--- NOTE | 2020-08-28 11:27 | Diagnostic Imaging Report ---
PROCEDURE: CT head without contrast. TECHNIQUE: Multiple contiguous axial images were obtained through the brain without the use of intravenous contrast. Auto Exposure Controls were utilized during the CT exam to meet ALARA standards for radiation dose reduction. INDICATION: Right-sided weakness and feeling of heaviness in right arm. COMPARISON: None available. FINDINGS: BRAIN: No parenchymal hemorrhage, midline shift, or mass effect. [place]-white matter differentiation is adequately preserved, without evidence of acute territorial infarct. Scattered periventricular and subcortical white matter hypodensities are nonspecific, likely reflecting chronic small vessel ischemic change. Prominence of the ventricles and sulci is compatible with cortical and cerebellar parenchymal volume loss, commensurate with age. EXTRA-AXIAL SPACES: No subdural or epidural collections. ORBITS AND PARANASAL SINUSES: Visualized orbits and globes are intact. Visualized paranasal sinuses and mastoid air cells are clear. CALVARIUM AND SOFT TISSUES: The calvarium is intact. No fractures or suspicious bony lesions. The extracranial soft tissues are unremarkable. IMPRESSION: No acute intracranial pathology. Chronic changes including age-related volume loss and nonspecific white matter disease, most commonly trimmed to small vessel ischemic change. If there is concern for acute infarct, MRI is a more sensitive study. Dictated by: Dictated on workstation # [id number]
--- NOTE | 2020-08-28 11:41 | ED General ---
General Chief Complaint: Neurological Problems Stated Complaint: STROKE SYMP History of Present Illness Date Seen by Provider: Aug 28, 2020 Time Seen by Provider: 10:50 Initial Comments The patient is an 82-year-old female with a history of hypertension, hyperlipidemia, sick sinus syndrome status post pacemaker implantation. She presents for evaluation of acute onset of right arm weakness, mild, with wake-up onset upon awakening from sleep this morning. She states she reached over to turn off her clock radio and noticed that her hand felt very heavy and weak and she did not have any coordination in her right hand, which is her dominant hand. In association with this, she notes that her right leg does not feel entirely normal when she walks she does have a quite hesitant gait and requires assistance in transferring from the wheelchair to the bed. She states this is not normal for her. Otherwise she denies specific symptoms and specifically denies fevers, nausea or vomiting, headache, focal numbness/tingling, neck stiffness/pain/meningismus, vision changes, recent falls or injury to her head, upper respiratory congestion/rhinorrhea, cough, shortness of breath or chest pain of any kind. Patient is alert and oriented 4 and pleasantly and appropriately interactive and in absolutely no acute distress upon initial assessment here in the emergency department. Vital signs are appropriate here, as his blood glucose. Allergies and Home Medications Allergies Coded Allergies: No Known Drug Allergies (Unverified , 08/15/19) Home Medications Brinzolamide/Brimonidine Tart 8 Ml Drops.susp, 1 DROP OU BID, (Reported) Carvedilol 3.125 Mg Tablet, 3.125 MG PO BID Prescribed by: JOHNY GLASGOW on 04/07/201200 Cefdinir 300 Mg Capsule, 300 MG PO BID Prescribed by: JOHNY GLASGOW on 04/07/201200 Furosemide 20 Mg Tablet, 20 MG PO DAILY Prescribed by: JOHNY GLASGOW on 04/07/201200 Losartan Potassium 25 Mg Tablet, 25 MG PO DAILY Prescribed by: JOHNY GLASGOW on 04/07/201200 Meclizine HCl 25 Mg Tablet, 25 MG PO BID, (Reported) Multivitamin 1 Each Tablet, 1 EACH PO DAILY, (Reported) Simvastatin 20 Mg Tablet, 20 MG PO HS, (Reported) Patient Home Medication List Home Medication List Reviewed: Yes Review of Systems Review of Systems Constitutional: see HPI All Other Systems Reviewed Negative Unless Noted: Yes (Negative excepted noted.) Past Foszohe-Nbtaah-Papbcq Hx Past Med/Social Hx: Reviewed Nursing Past Med/Soc Hx Patient Social History 2nd Hand Smoke Exposure: No Recent Foreign Travel: No Contact w/Someone Who Travel: No Recent Hopitalizations: No Immunizations Up To Date Tetanus Booster (TDap): Unknown Seasonal Allergies Seasonal Allergies: No Past Medical History Surgeries: Yes Appendectomy, Bowel Surgery Respiratory: No Cardiac: Yes High Cholesterol, Hypertension Neurological: Yes (Tremors) Vertigo Genitourinary: No Gastrointestinal: No Musculoskeletal: Yes (L Wrist) Fractures Endocrine: No HEENT: Yes Loss of Vision: Denies Hearing Impairment: Hard of Hearing Cancer: No Psychosocial: No Integumentary: No Blood Disorders: No Family Medical History Reviewed Nursing Family Hx Physical Exam Vital Signs Capillary Refill : Height, Weight, BMI Height: '" Weight: lbs. oz. kg; 24.00 BMI Method: General Appearance: No Apparent Distress Comments This is an elderly female appearing nontoxic and in no acute distress. Head is normocephalic and atraumatic. Neck is supple and nontender. Oropharynx is moist. Lungs are clear to auscultation at all stations. There is a normal S1 and S2 without rubs or gallops and capillary refill is appropriate, less than 2 seconds globally. Abdomen is soft, nontender and nondistended. Skin is warm and dry without cyanosis, clubbing or edema. Psychiatrically, the patient given straights appropriate mood and affect and is alert. Neurologically, patient has 4 out of 5 strength to flexion and extension at the right elbow and right wrist and has diminished strength and coordination to her right hand, mild. Otherwise, no focal or lateralizing neurologic deficits are appreciated. Cranial nerves II through XII are intact. Speech is normal. Language is normal. Coordination is normal. There is no dysmetria with xwehwx-bz-etso or shxi-vp-djcw bilaterally. Sensation is intact to light touch in all nerve distributions. Patient is alert and oriented 4. She seems to have a little difficulty ambulating when transferring from the wheelchair to the bed; ambulation is not further tested but patient states this is not normal for her. Progress/Results/Core Measures Suspected Sepsis SIRS Temperature: Pulse: Respiratory Rate: Laboratory Tests 08/28/20 11:30: White Blood Count 6.6 Blood Pressure / Mean: Laboratory Tests 08/28/20 11:30: Platelet Count 300 Results/Orders Lab Results Laboratory Tests Test 08/28/20 11:02 08/28/20 11:30 Range/Units Glucometer 112 H 70-110 MG/DL White Blood Count 6.6 4.3-11.0 10^3/uL Red Blood Count 5.11 4.35-5.85 10^6/uL Hemoglobin 15.4 11.5-16.0 G/DL Hematocrit 47 35-52 % Mean Corpuscular Volume 93 80-99 FL Mean Corpuscular Hemoglobin 30 25-34 PG Mean Corpuscular Hemoglobin Concent 33 32-36 G/DL Red Cell Distribution Width 12.4 10.0-14.5 % Platelet Count 300 130-400 10^3/uL Mean Platelet Volume 9.1 7.4-10.4 FL Immature Granulocyte % (Auto) 0 % Neutrophils (%) (Auto) 60 42-75 % Lymphocytes (%) (Auto) 25 12-44 % Monocytes (%) (Auto) 12 0-12 % Eosinophils (%) (Auto) 2 0-10 % Basophils (%) (Auto) 1 0-10 % Neutrophils # (Auto) 4.0 1.8-7.8 X 10^3 Lymphocytes # (Auto) 1.7 1.0-4.0 X 10^3 Monocytes # (Auto) 0.8 0.0-1.0 X 10^3 Eosinophils # (Auto) 0.1 0.0-0.3 10^3/uL Basophils # (Auto) 0.0 0.0-0.1 10^3/uL Immature Granulocyte # (Auto) 0.0 0.0-0.1 10^3/uL My Orders Orders - STEPHANIE BENAVIDES MD Cbc With Automated Diff (08/28/20 10:59) Comprehensive Metabolic Panel (08/28/20 10:59) Troponin I Fs (08/28/20 10:59) Ekg Tracing (08/28/20 10:59) Chest 1 View Ap/Pa Only (08/28/20 10:59) Protime With Inr (08/28/20 10:59) Partial Thromboplastin Time (08/28/20 10:59) Ct Head Wo (11/27/20 10:59) Vital Signs/I&O Capillary Refill : Progress Note : Progress Note NIH stroke scale score is 0. Overall scenario, with wake-up sensation of weakness and incoordination in her dominant right hand, along with some very subtle change in her ambulation, is suspicious for small vessel/lacunar ischemic stroke. Labs, EKG and CT imaging of the head are without evidence of acute process. Out of any window for intervention with alteplase and likely would not qualify if she were within the time window given such subtle symptoms, which, again, are likely reflective of small vessel disease and very unlikely to represent LVO. We'll proceed with transfer to [facility] for additional imaging, likely to include CT angiography of the head and neck and MRI of the brain if her pacemaker is compatible. We will give a full strength a spirin. Stable for transfer to [place] at this time. Graciously accepted in transfer by Dr. Chaudhry. ECG Comment Sinus rhythm, no acute ST elevation or depression, EP interpretation. Moderate baseline artifact limits interpretation. Departure Impression Primary Impression: Right arm weakness Disposition: 30 STILL A PATIENT Condition: Stable Departure-Patient Inst. Referrals: EMILY BERKOWITZ DO (PCP/Family) Primary Care Physician STEPHANIE BENAVIDES MD Aug 28, 2020 11:41
[2020-08-28 11:45] LABS: HEMATOCRIT 47 % (35-52); HEMOGLOBIN 15.4 G/DL (11.5-16.0); MEAN CORPUSCULAR HEMOGLOBIN 30 PG (25-34); MEAN CORPUSCULAR HGB CONC 33 G/DL (32-36); MEAN CORPUSCULAR VOLUME 93 FL (80-99); WHITE BLOOD COUNT 6.6 10^3/uL (4.3-11.0)
[2020-08-28 11:46] LABS: BASOPHILS % (AUTO) 1 % (0-10); EOSINOPHILS # (AUTO) 0.1 10^3/uL (0.0-0.3); EOSINOPHILS % (AUTO) 2 % (0-10); LYMPHOCYTES # (AUTO) 1.7 X 10^3 (1.0-4.0); LYMPHOCYTES % (AUTO) 25 % (12-44); MEAN PLATELET VOLUME 9.1 FL (7.4-10.4); MONOCYTES # (AUTO) 0.8 X 10^3 (0.0-1.0); MONOCYTES % (AUTO) 12 % (0-12); NEUTROPHILS % (AUTO) 60 % (42-75); PLATELET COUNT 300 10^3/uL (130-400)
[2020-08-28 12:00] LABS: PROTHROMBIN TIME PATIENT 13.2 SEC (12.2-14.7)
[2020-08-28 12:04] LABS: ALKALINE PHOSPHATASE 90 U/L (40-136); BILIRUBIN,TOTAL 0.3 MG/DL (0.1-1.0); BUN/CREATININE RATIO 20; CALCIUM 9.6 MG/DL (8.5-10.1); CARBON DIOXIDE 25 MMOL/L (21-32); CHLORIDE 107 MMOL/L (98-107); CREATININE SERUM 1.06 MG/DL (0.60-1.30); GFR ESTIMATED 49; GLUCOSE 102 MG/DL (70-105); POTASSIUM 4.3 MMOL/L (3.6-5.0); SODIUM 142 MMOL/L (135-145)
[2020-08-28 12:05] LABS: ALANINE AMINOTRANSFERASE 26 U/L (0-55); ALBUMIN 4.4 GM/DL (3.2-4.5); TOTAL PROTEIN 7.3 GM/DL (6.4-8.2)
[2020-08-28] MEDS ORDERED: ASPIRIN 325 MG (5 GR) TABLET PO ONE (12:15)
--- NOTE | 2020-08-28 15:31 | NUR ---
Due to emergent transfer, [facility] was called to transfer this patient. EMS should be here within 30 minutes.
--- NOTE | 2020-08-28 16:08 | NUR ---
Report was given to [facility]. Care was transferred at this time.
[2020-08-28 17:06] VITALS: BP 160/99
[2020-08-28] MEDS ORDERED: ACETAMINOPHEN 325 MG TABLET PO PRN (17:30)
[2020-08-28] MEDS ORDERED: CATHETER FLUSH 10 ML SYR IV PRN (17:30)
[2020-08-28] MEDS ORDERED: ONDANSETRON 4 MG/2 ML (SDV) Z0FRAN IV PRN (17:30)
[2020-08-28] MEDS ORDERED: IOHEXOL 350 MG/ML 100 ML (OMNIPAQUE 350) VIAL IV ONE (17:45)
[2020-08-28] MEDS ORDERED: HOLD METFORMIN - RECEIVED CONTRAST 20 ML VIAL IV SCH (17:45)
[2020-08-28] MEDS ORDERED: NS 100 ML (IVPB) BAG IV ONE (17:45)
--- NOTE | 2020-08-28 18:24 | NUR ---
DR ARTHUR NOTIFIED OF CONSULT
--- NOTE | 2020-08-28 18:36 | Diagnostic Imaging Report ---
PROCEDURE: CT angiography of the head and CT angiography of the neck with and without contrast. TECHNIQUE: Contiguous noncontrast images were obtained from the skull base through the vertex. After intravenous contrast administration, helical CT angiography of the neck was performed. Source data was reformatted into 3D MIP projections. Delayed post contrast acquisition was also obtained. Auto Exposure Controls were utilized during the CT exam to meet ALARA standards for radiation dose reduction. INDICATION: Right arm weakness. COMPARISON: Exam correlated with head CT earlier the same day. No prior angiographic study. CT angiogram neck: Branching pattern of the great vessels normal. The left vertebral dominant, the right small but nonfocal and not pathologic. There is mild left greater than right carotid bulb and bifurcation calcified plaques without hemodynamically significant degrees of stenosis. The cervical internal carotids are tortuous on the right but nonfocal and widely patent. No intimal injury or dissection. CT angiogram head: The intradural vertebral arteries again dominant on the left were nonfocal and nonpathologic. The basilar artery patent. The bilateral posterior cerebral arterial segments are patent and well opacified. The intracranial ICAs reveal non-stenosing mild cavernous calcified plaques and are patent. The bilateral A1 segments, the ACOM and the bilateral anterior cerebral arteries are patent. The bilateral middle cerebral arterial segments and primary branches are all widely patent. No intraluminal filling defect or thrombus is found. No aneurysm or vascular malformation. No hemodynamically significant degree of stenosis. IMPRESSION: Mild degrees of non-stenosing cervical and intracranial carotid calcified plaques. No hemo-dynamically significant stenosis, occlusion, thrombus or aneurysm. Dictated by: Dictated on workstation # [id number]
[2020-08-28] MEDS: ENOXAPARIN 40 MG/0.4 ML (LOVENOX) SYR SC SCH (18:51)
[2020-08-28] MEDS: CATHETER FLUSH 10 ML SYR IV SCH (20:28)
[2020-08-28 20:35] VITALS: BP 144/67
[2020-08-28 23:45] VITALS: BP 119/59
[2020-08-29 04:25] VITALS: BP 126/59
[2020-08-29 05:41] LABS: BASOPHILS % (AUTO) 1 % (0-10); EOSINOPHILS # (AUTO) 0.1 10^3/uL (0.0-0.3); EOSINOPHILS % (AUTO) 2 % (0-10); HEMATOCRIT 45 % (35-52); HEMOGLOBIN 14.3 g/dL (11.5-16.0); LYMPHOCYTES # (AUTO) 1.7 10^3/uL (1.0-4.0); LYMPHOCYTES % (AUTO) 25 % (12-44); MEAN CORPUSCULAR HEMOGLOBIN 30 pg (25-34); MEAN CORPUSCULAR HGB CONC 32 g/dL (32-36); MEAN CORPUSCULAR VOLUME 94 fL (80-99); MEAN PLATELET VOLUME 9.1 fL (9.0-12.2); MONOCYTES # (AUTO) 0.8 10^3/uL (0.0-1.0); MONOCYTES % (AUTO) 12 % (0-12); NEUTROPHILS # (AUTO) 4.2 10^3/uL (1.8-7.8); NEUTROPHILS % (AUTO) 61 % (42-75); PLATELET COUNT 259 10^3/uL (130-400); WHITE BLOOD COUNT 6.9 10^3/uL (4.3-11.0)
[2020-08-29 05:51] LABS: ALBUMIN 3.6 GM/DL (3.2-4.5); CHLORIDE 107 MMOL/L (98-107); POTASSIUM 4.1 MMOL/L (3.6-5.0); SODIUM 139 MMOL/L (135-145)
[2020-08-29 05:52] LABS: CALCIUM 8.6 MG/DL (8.5-10.1)
[2020-08-29 05:53] LABS: TOTAL PROTEIN 6.1 GM/DL (6.4-8.2); TRIGLYCERIDES 111 MG/DL (<150); VLDL CHOLESTEROL 22 MG/DL (5-40)
[2020-08-29 05:54] LABS: GLUCOSE 94 MG/DL (70-105)
[2020-08-29 05:55] LABS: BILIRUBIN,TOTAL 0.5 MG/DL (0.1-1.0); CARBON DIOXIDE 22 MMOL/L (21-32)
[2020-08-29 05:57] LABS: ALKALINE PHOSPHATASE 62 U/L (40-136); CREATININE SERUM 0.88 MG/DL (0.60-1.30); GFR ESTIMATED > 60
[2020-08-29 05:58] LABS: CHOLESTEROL 183 MG/DL (< 200)
[2020-08-29 05:59] LABS: BUN/CREATININE RATIO 23; HDL CHOLESTEROL 52 MG/DL (40-60)
[2020-08-29 06:00] LABS: ALANINE AMINOTRANSFERASE 22 U/L (0-55)
[2020-08-29] MEDS: CATHETER FLUSH 10 ML SYR IV SCH ×3 (06:29→19:59)
[2020-08-29 08:00] VITALS: BP 139/65
[2020-08-29] MEDS: ASPIRIN E.C. 325 MG (ECOTRIN) TABLET PO SCH (08:59)
[2020-08-29 10:00] VITALS: BP 139/65
--- NOTE | 2020-08-29 10:44 | Physical Therapy Evaluation ---
PT Evaluation-General Medical Diagnosis Admission Date Aug 28, 2020 at 17:03 Medical Diagnosis: CVA Onset Date: Aug 28, 2020 Therapy Diagnosis Therapy Diagnosis: impaired mobility, strength, endurance, balance Precautions Precautions/Isolations: Fall Prevention, Standard Precautions Referral Physician: Richa Reason for Referral: Evaluation/Treatment Medical History Pertinent Medical History: HTN Additional Medical History Past Medical History Surgeries: Yes Appendectomy, Bowel Surgery Respiratory: No Cardiac: Yes High Cholesterol, Hypertension Neurological: Yes (Tremors) Vertigo Genitourinary: No Gastrointestinal: No Musculoskeletal: Yes (L Wrist) Fractures Endocrine: No HEENT: Yes Loss of Vision: Denies Hearing Impairment: Hard of Hearing Social History Home: Single Level Current Living Status: Spouse Entry Into Home: Level Entry Prior Prior Level of Function SCALE: Activities may be completed with or without assistive devices. 4-Innjcbdctl-oddhhmi completes the activity by him/herself with no assistance from a helper. 5-Set-up or Clean-up Assistance-helper sets up or cleans up; patient completes activity. [place] assists only prior to or following the activity. 4-Supervision or Touching Assistance-helper provides verbal cues and/or touching/steadying and/or contact guard assistance as patient completes activity. Assistance may be provided throughout the activity or intermittently. 3-Partial/Moderate Assistance-helper does LESS THAN HALF the effort. [place] lifts, holds or supports trunk or limbs, but provides less than half the effort. 2-Substantial/Maximal Assistance-helper does MORE THAN HALF the effort. [place] lifts or holds trunk or limbs and provides more than half the effort. 2-Ki[place]ead[place]-qgmjyt does ALL the effort. Patient does none of the effort to complete the activity. Or, the assistance of 2 or more helpers is required for the patient to complete the activity. If activity was not attempted, code reason: 7-Patient Refused. 9-Not Applicable-not attempted and the patient did not perform the activity before the current illness, exacerbation or injury. 10-Not Attempted due to Environmental Limitations-(lack of equipment, weather restraints, etc.). 88-Not Attempted due to Medical Conditions or Safety Concerns. Bed Mobility: 6 Transfers (B,C,W/C): 6 Gait: 6 Indoor Mobility (Ambulation): Independent Prior Devices Use: Walker PT Evaluation-Current Subjective Patient in bed pre tx, agrees to PT, has no complaints of pain. Pt/Family Goals to be independent at home Objective Patient Orientation: Person, Place, Situation ROM/Strength ROM Lower Extremities WNL Strength Lower Extremities 4/5 gross BLE Neuromuscular (Tone, Coordination, Reflexes) poor coordination touching nose with right hand, normal clonus, negative babinski, no facial asymmetry, good tracking and peripheral vision Sensory Hearing: Impaired Sensation Right Lower Extremit: Intact Sensation Left Lower Extremity: Intact Transfers Roll Left to Right (QC): 6 Sit to Lying (QC): 3 Lying to Sitting/Side of Bed(Q: 3 Sit to Stand (QC): 4 Chair/Tdh-lu-Anwck Xfer(QC): 4 Mod assist for supine <-> sit, CGA for sit to stand and transfers Gait Does the Patient Walk?: Yes Mode of Locomotion: Walk Anticipated Mode of Locomotion: Walk Walk 10 feet (QC): 4 Distance: 20' Gait Assistive Device: FWW Comments/Gait Description Patient ambulates slowly, needs cues for direction and safety, CGA, occasional unsteadiness but no LOB needing assistance Balance Sitting Static: Normal Sitting Dynamic: Normal Standing Static: Fair Standing Dynamic: Fair Assessment/Needs Patient has impaired mobility, strength, endurance, balance. She has weakness in her right arm and poor coodination, she could possibly have some slight right neglect also Rehab Potential: Fair PT Senior Living Goals Senior Living Goals PT Breakfast Attendant Goals Time Frame: Sep 05, 2020 Roll Left & Right (QC): 6 Sit to Lying (QC): 6 Lying-Sitting on Side/Bed(QC): 6 Sit to Stand (QC): 4 Chair/Xoz-jj-Igdco Xfer(QC): 4 Walk 10 feet (QC): 4 Walk 50ft with 2 Turns (QC): 4 Walk 150 ft (QC): 4 PT Plan Problem List Problem List: Activity Tolerance, Functional Strength, Safety, Balance, Gait, Transfer, Bed Mobility, ROM Treatment/Plan Treatment Plan: Continue Plan of Care Treatment Plan: Bed Mobility, Education, Functional Activity [place], Functional Strength, Gait, Safety, Therapeutic Exercise, Transfers Treatment Duration: Sep 05, 2020 Frequency: 6 times per week Estimated Hrs Per Day: .25 hour per day Patient and/or Family Agrees t: Yes Safety Risks/Education Patient Education: Gait Training, Transfer Techniques, Correct Positioning, Safety Issues Teaching Recipient: Patient Teaching Methods: Demonstration, Discussion Response to Teaching: Reinforcement Needed Discharge Recommendations Plan Patient will perform bed mobility and transfer training, balance and endurance training, functional strengthening, stair training, gait training, and education, to improve functional mobility and independence at home. Therapy Discharge Recommendati: Home & Family, Post Acute PT Time/GCodes Time In: 1023 Time Out: 1037 Total Billed Treatment Time: 14 Total Billed Treatment 1 visit SOFIYA Gomez' DANIELLE CRYSTAL PT Aug 29, 2020 10:44
[2020-08-29 12:00] VITALS: BP 167/68
--- NOTE | 2020-08-29 12:45 | Consultation-Cardiology ---
HPI-Cardiology Cardiology Consultation Date of Consultation 08/29/20 Date of Admission Time Seen by Provider: 12:40 Indication: CVA HPI 82 years old lady with history of sinus node dysfunction, permanent pacemaker, hypertension hyperlipidemia. She was admitted for right arm weakness area and she has history of weakness in her left arm, reporting that she has improved but she still have weakness on the right side in holding a cup. Denied any chest pain or shortness of breath. No palpitation. No syncope or near syncopal episode. On my evaluation she was laying down comfortably, no active complaint Home Medications & Allergies Allergies: Coded Allergies: No Known Drug Allergies (Unverified , 08/15/19) Home Medication List Reviewed: Yes JOD-Zbzmnc-Foxxhu Hx Patient Social History Alcohol Use: Denies Use Recreational Drug Use: No Smoking Status: Never a Smoker 2nd Hand Smoke Exposure: No Recent Foreign Travel: No Recent Infectious Disease Expo: No Recent Hopitalizations: No Physical Abuse Screen: No Sexual Abuse: No Immunizations Up To Date Tetanus Booster (TDap): Unknown Date of Influenza Vaccine: Aug 19, 2020 Past Medical History Discussed below Family Medical History Family Medical Hx Non-contributory Review of Systems-General Review of Systems Constitutional: no symptoms reported, see HPI, malaise EENTM: see HPI, no symptoms reported Respiratory: no symptoms reported, see HPI Cardiovascular: see HPI Gastrointestinal: no symptoms reported, see HPI Genitourinary: no symptoms reported, see HPI Musculoskeletal: no symptoms reported, see HPI Skin: no symptoms reported, see HPI Psychiatric/Neurological: No Symptoms Reported, See HPI All Other Systems Reviewed Negative Unless Noted: Yes (Negative excepted noted.) Reviewed Test Results Reviewed Test Results Lab Laboratory Tests Test 08/29/20 05:20 Range/Units White Blood Count 6.9 4.3-11.0 10^3/uL Red Blood Count 4.76 3.80-5.11 10^6/uL Hemoglobin 14.3 11.5-16.0 g/dL Hematocrit 45 35-52 % Mean Corpuscular Volume 94 80-99 fL Mean Corpuscular Hemoglobin 30 25-34 pg Mean Corpuscular Hemoglobin Concent 32 32-36 g/dL Red Cell Distribution Width 12.2 10.0-14.5 % Platelet Count 259 130-400 10^3/uL Mean Platelet Volume 9.1 9.0-12.2 fL Immature Granulocyte % (Auto) 0 % Neutrophils (%) (Auto) 61 42-75 % Lymphocytes (%) (Auto) 25 12-44 % Monocytes (%) (Auto) 12 0-12 % Eosinophils (%) (Auto) 2 0-10 % Basophils (%) (Auto) 1 0-10 % Neutrophils # (Auto) 4.2 1.8-7.8 10^3/uL Lymphocytes # (Auto) 1.7 1.0-4.0 10^3/uL Monocytes # (Auto) 0.8 0.0-1.0 10^3/uL Eosinophils # (Auto) 0.1 0.0-0.3 10^3/uL Basophils # (Auto) 0.0 0.0-0.1 10^3/uL Immature Granulocyte # (Auto) 0.0 0.0-0.1 10^3/uL Sodium Level 139 135-145 MMOL/L Potassium Level 4.1 3.6-5.0 MMOL/L Chloride Level 107 98-107 MMOL/L Carbon Dioxide Level 22 21-32 MMOL/L Anion Gap 10 5-14 MMOL/L Blood Urea Nitrogen 20 H 7-18 MG/DL Creatinine 0.88 0.60-1.30 MG/DL Estimat Glomerular Filtration Rate > 60 BUN/Creatinine Ratio 23 Glucose Level 94 70-105 MG/DL Calcium Level 8.6 8.5-10.1 MG/DL Corrected Calcium 8.9 8.5-10.1 MG/DL Total Bilirubin 0.5 0.1-1.0 MG/DL Aspartate Amino Transf (AST/SGOT) 21 5-34 U/L Alanine Aminotransferase (ALT/SGPT) 22 0-55 U/L Alkaline Phosphatase 62 40-136 U/L Total Protein 6.1 L 6.4-8.2 GM/DL Albumin 3.6 3.2-4.5 GM/DL Triglycerides Level 111 <150 MG/DL Cholesterol Level 183 < 200 MG/DL LDL Cholesterol Direct 123 1-129 MG/DL VLDL Cholesterol 22 5-40 MG/DL HDL Cholesterol 52 40-60 MG/DL Physical Exam Physical Exam Vital Signs Vital Signs - First Documented 08/28/20 10:44 Temp 36.4 Pulse 85 Resp 16 B/P (MAP) 161/60 (93) Pulse Ox 96 O2 Delivery Room Air Capillary Refill : Less Than 3 SecondsLess Than 3 Seconds Height, Weight, BMI Height: '" Weight: lbs. oz. kg; 27.14 BMI Method: General Appearance: No Apparent Distress Eyes: Bilateral Eye Normal Inspection, Bilateral Eye PERRL, Bilateral Eye EOMI HEENT: PERRL/EOMI, TMs Normal, Normal ENT Inspection, Pharynx Normal, Moist Mucous Membranes Neck: Full Range of Motion, Normal Inspection, Non Tender, Supple, Carotid Bruit Respiratory: Chest Non Tender, Normal Breath Sounds, No Accessory Muscle Use, No Respiratory Distress Cardiovascular: Regular Rate, Rhythm, No Edema, No Gallop, No JVD, No Murmur, Normal Peripheral Pulses Gastrointestinal: Normal Bowel Sounds, No Organomegaly, No Pulsatile Mass, Non Tender, Soft Back: Normal Inspection, No CVA Tenderness, No Vertebral Tenderness Extremity: Normal Capillary Refill, Normal Inspection, Normal Range of Motion, Non Tender, No Calf Tenderness, No Pedal Edema Neurologic/Psychiatric: Alert, Oriented x3, Normal Mood/Affect, Other (right arm muscle strength is normal, has weakness on the left arm which is secondary to old injury) Skin: Normal Color, Warm/Dry Lymphatic: No Adenopathy A/P-Cardiology Admission Diagnosis CVA Complete heart block Hypertension Hyperlipidemia Assessment/Plan Right upper extremity weakness, improved, probably TIA. Could be secondary to underlying arrhythmia, we'll interrogate her pacemaker. 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 Continue to monitor History of left ventricular diastolic dysfunction. Echo showed normal systolic function. Continue to monitor Hypertension, restart home medication monitor Hyperlipidemia, monitor lipids History of dementia. Clinical Quality Measures DVT/VTE Risk/Contraindication: Risk Factor Score Per Nursin RFS Level Per Nursing on Admit: 4+=Very High NAJMA GALVAN MD Aug 29, 2020 12:45
--- NOTE | 2020-08-29 13:06 | Occupational Therapy Eval ---
OT Evaluation-General/PLF Medical Diagnosis Admission Date Aug 28, 2020 at 17:03 Medical Diagnosis: CVA Onset Date: Aug 28, 2020 Therapy Diagnosis Therapy Diagnosis: decr self care, weakness, decr funct mobility, incoord Precautions Precautions/Isolations: Fall Prevention, Standard Precautions Referral Physician: Richa Referral Reason: Evaluation/Treatment Medical History Pertinent Medical History: HTN Additional Medical History Sick sinus syndrome, pacemaker. Bowel surgery. Tremors. Vertigo. [place]. 4 fractures L UE, per pt report Current History Admitted with R arm weakness, decreased coordination. Reviewed History: Yes Social History Home: Single Level Current Living Status: Children (Pt reported that her daughter lives with her and supervises transfers) Entry Into Home: Level Entry ADL-Prior Level of Function SCALE: Activities may be completed with or without assistive devices. 5-Rbvratsejn-mxpsqks completes the activity by him/herself with no assistance from a helper. 5-Set-up or Clean-up Assistance-helper sets up or cleans up; patient completes activity. [place] assists only prior to or following the activity. 4-Supervision or Touching Assistance-helper provides verbal cues and/or touching/steadying and/or contact guard assistance as patient completes activity. Assistance may be provided throughout the activity or intermittently. 3-Partial/Moderate Assistance-helper does LESS THAN HALF the effort. [place] lifts, holds or supports trunk or limbs, but provides less than half the effort. 2-Substantial/Maximal Assistance-helper does MORE THAN HALF the effort. [place] lifts or holds trunk or limbs and provides more than half the effort. 2-Jragfkzmu-rrqbhi does ALL the effort. Patient does none of the effort to compl ete the activity. Or, the assistance of 2 or more helpers is required for the patient to complete the activity. If activity was not attempted, code reason: 7-Patient Refused. 9-Not Applicable-not attempted and the patient did not perform the activity before the current illness, exacerbation or injury. 10-Not Attempted due to Environmental Limitations-(lack of equipment, weather restraints, etc.). 88-Not Attempted due to Medical Conditions or Safety Concerns. ADL PLOF Comments Pt stated that she is able to manage most of her ADLs but that her daughter lives with her and is her nursing home physician. She uses a FWW and always has on a gait belt for transfers. Her left UE has limited ROM and functional use so she does everything with her R UE. She is a retired teacher. Self Care: Needed Some Help Functional Cognition: Needed Some Help OT Current Status Subjective Pt seen in room, up in bed, agreeable to OT. Pt reported pain 0/10 Appearance Alert, cooperative Mental Status/Objective Patient Orientation: Person, Time, Situation Attachments: Saline Lock, Telemetry Current Glasses/Contacts: Yes Hand Dominance: Right Upper Extremity ROM R UE grossly WFL. L UE limited throughout and functions as assist only. Upper Extremity Coordination Some incoordination observed while feeding herself, toileting and washing hands. Upper Extremity Sensation Pt reported no problems Upper Extremity Strength R UE grossly 4/5. Unable to assess L UE ADL-Treatment ADL-Current Pt needed min assist supine to sit EOB. CGA sit to stand. Help with putting on shoes. CGA, FWW to walk to bathroom, CGA toilet transfer. Min assist managing clothing but managed hygiene with setup, CGA. SBA at sink to wash hands but she turned water on/off with R UE. Cues for body placement with getting on toilet and sitting in chair. PT eval reported may have some R neglect. Able to feed herself with some incoordination after meal setup. Pt encouraged to use R UE as much as possible but to be safe with hot foods until she trusts her hand function. Pt left up in recliner, eating, all needs met. Eating (QC): 4 (supervision) Toileting Hygiene (QC): 3 (CGA, min A wit pants) Education OT Patient Education: Modified ADL techniques, Purpose of tx/functional activities, Rehab process, Safety issues, Transfer techniques Teaching Recipient: Patient Teaching Methods: Demonstration Response to Teaching: Verbalize Understanding, Reinforcement Needed OT Chcf Goals Loom Blower Goals Time Frame: Sep 05, 2020 Eating (QC): 5 Oral Hygiene (QC): 5 Toileting Hygiene (QC): 5 Shower/Bathe Self (QC): 5 Upper Body Dressing (QC): 5 Lower Body Dressing (QC): 5 On/Off Footwear (QC): 5 1=Demonstrate adherence to instructed precautions during ADL tasks. 2=Patient will verbalize/demonstrate understanding of assistive devices/modifications for ADL. 3=Patient will improve strength/tolerance for activity to enable patient to perform ADL's. OT Education/Plan Problem List/Assessment Assessment: Dependent Transfers, Impaired Coordination, Impaired Funct Balance, Impaired Self-Care Skills, Restricted Funct UE ROM Discharge Recommendations Plan Pt would benefit from skilled OT to increase her independence in basic self care to allow her to safely return to her home with daughter Plan/Recommendations: Continue POC Therapy Discharge Recommendati: Post Acute OT Treatment Plan/Plan of Care Treatment,Training & Education: Yes Patient would benefit from OT for education, treatment and training to promote independence in ADL's, mobility, safety and/or upper extremity function for ADL's. Plan of Care: ADL Retraining, Functional Mobility, UE Funct Exercise/Act, UE Neuromus Re-Ed/Coord Treatment Duration: Sep 05, 2020 Frequency: 5 times per week Estimated Hrs Per Day: .5 hour per day Agreement: Yes Rehab Potential: Fair Time/GCodes Start Time: 12:14 Stop Time: 12:39 Total Time Billed (hr/min): 25 Billed Treatment Time visit, 15 minutes evaluation moderate intensity, 10 minutes ADL LINDA KAMARA OT Aug 29, 2020 13:06
--- NOTE | 2020-08-29 13:34 | NUR ---
PACEMAKER INTERROGATED ORDERED. RESULTS CALLED AND REPORTED TO DR GALVAN. PT OKAY TO DISCHARGE PER CARDIOLOGY STANDPOINT.
--- NOTE | 2020-08-29 13:39 | History & Physical-Hospitalist ---
History of Present Illness HPI/Chief Complaint Fay Rodriguez is an 89-year-old female with past medical history of hypertension, hyperlipidemia, vertigo, recent falls, who presented with right-sided weakness. Her symptoms started when she woke up from sleep yesterday. Her last of all time was the evening before when she went to sleep. She reports that her right hand feels clumsy. The weakness has improved. She denies any fevers or chills. She denies any chest pain or palpitations. She denies any shortness of breath or cough. She denies any abdominal pain, nausea, vomiting, or diarrhea. Source: patient Exam Limitations: no limitations Date Seen 08/29/20 Time Seen by a Provider: 10:00 Attending Physician Daisy Montesinos MD PCP Claudy Enrique DO Referring Physician Date of Admission Aug 28, 2020 at 17:03 Home Medications & Allergies Home Medications Reviewed patient Home Medication Reconciliation performed by pharmacy medication reconciliations zoning technician and/or nursing. Patients Allergies have been reviewed. Allergies Allergies Coded Allergies No Known Drug Allergies (Comcofnznm46/14/19) Past Goyggjw-Lkweoz-Ivxzrf Hx Past Med/Social Hx: Reviewed Nursing Past Med/Soc Hx Patient Social History Alcohol Use: Denies Use Recreational Drug Use: No Smoking Status: Never a Smoker 2nd Hand Smoke Exposure: No Physical Abuse Screen: No Sexual Abuse: No Recent Foreign Travel: No Contact w/other who traveled: No Recent Hopitalizations: No Recent Infectious Disease Expo: No Immunizations Up To Date Tetanus Booster (TDap): Unknown Date of Influenza Vaccine: Aug 19, 2020 Seasonal Allergies Seasonal Allergies: No Past Medical History Surgeries: Appendectomy, Bowel Surgery Cardiac: High Cholesterol, Hypertension Neurological: Vertigo Musculoskeletal: Fractures Loss of Vision: Denies Hearing Impairment: Hard of Hearing History of Blood Disorders: No Family History Reviewed Nursing Family Hx Review of Systems Constitutional: dizziness, weakness EENTM: no symptoms reported Respiratory: no symptoms reported Cardiovascular: no symptoms reported Gastrointestinal: no symptoms reported Genitourinary: no symptoms reported Musculoskeletal: no symptoms reported Skin: no symptoms reported Psychiatric/Neurological: Pre-Existing Deficit, Weakness Physical Exam Physical Exam Vital Signs Vital Signs - First Documented 08/28/20 10:44 Temp 36.4 Pulse 85 Resp 16 B/P (MAP) 161/60 (93) Pulse Ox 96 O2 Delivery Room Air Capillary Refill : Less Than 3 SecondsLess Than 3 Seconds Height, Weight, BMI Height: '" Weight: lbs. oz. kg; 27.14 BMI Method: General Appearance: No Apparent Distress, WD/WN HEENT: PERRL/EOMI, Pharynx Normal Neck: Normal Inspection, Supple Respiratory: Lungs Clear, Normal Breath Sounds, No Respiratory Distress Cardiovascular: Regular Rate, Rhythm, No Edema, No Murmur Gastrointestinal: Normal Bowel Sounds, Non Tender Extremity: Normal Inspection, Non Tender, No Pedal Edema Neurologic/Psychiatric: Alert, Oriented x3, No Motor/Sensory Deficits, Normal Mood/Affect, Other (dysmetria and dysdiadochokinesia) Skin: Normal Color, Warm/Dry Results Results/Procedures Labs Laboratory Tests 08/28/20 11:30 08/29/20 05:20 Patient resulted labs reviewed. Imaging: Reviewed Imaging Report Assessment/Plan Admission Diagnosis acute ischemic stroke Admission Status: Inpatient Order (span 2 midnights) Reason for Inpatient Admission: stroke requiring further evaluation and treatment Assessment and Plan Acute ischemic stroke Deficits indicate likely cerebellar stroke CT Head unremarkable CTA unremarkable, no significant stenosis or thrombosis Started on ASA Begin Lipitor PT/OT IRU consult Obtain echo Monitor on telemetry Consult Cardiology, appreciate assistance MRI Brain on Monday SSS s/p pacemaker HTN HLD Vertigo Continue home meds DVT Prophylaxis: Lovenox Diagnosis/Problems Diagnosis/Problems (1) Acute ischemic stroke Status: Acute (2) HTN (hypertension) Status: Chronic (3) HLD (hyperlipidemia) Status: Chronic (4) SSS (sick sinus syndrome) Status: Chronic (5) Pacemaker Status: Chronic (6) Vertigo Status: Chronic (7) History of recent fall Status: Chronic Clinical Quality Measures DVT/VTE Risk/Contraindication: Risk Factor Score Per Nursin RFS Level Per Nursing on Admit: 4+=Very High DAISY MONTESINOS MD Aug 29, 2020 13:39
[2020-08-29 16:00] VITALS: BP 131/89
[2020-08-29] MEDS: ENOXAPARIN 40 MG/0.4 ML (LOVENOX) SYR SC SCH (17:44)
[2020-08-29] MEDS: MECLIZINE 25 MG (ANTIVERT) TAB PO SCH (19:58)
[2020-08-29] MEDS: CARVEDILOL 3.125 MG (COREG) TABLET PO SCH (19:58)
[2020-08-29 20:12] VITALS: BP 132/61
[2020-08-30] VITALS: BP 121/59
[2020-08-30 04:00] VITALS: BP 113/56
[2020-08-30] MEDS: CATHETER FLUSH 10 ML SYR IV SCH (06:00)
[2020-08-30 07:32] VITALS: BP 121/67
--- NOTE | 2020-08-30 08:46 | Cardiology Progress Note ---
Subjective Date Seen by Provider: Aug 30, 2020 Time Seen by Provider: 08:45 Subjective/Events-last exam Patient is laying down in bed, still having weakness in her arm. Review of Systems General: No Chills, No Night Sweats, No Fatigue, No Malaise, No Appetite, No Other HEENT: No Head Aches, No Visual Changes, No Eye Pain, No Ear Pain, No Dysphasia, No Sinus Congestion, No Post Nasal Drip, No Sore Throat, No Other Pulmonary: No Dyspnea, No Cough, No Pleuritic Chest Pain, No Other Cardiovascular: No: Chest Pain, Palpitations, Orthopnea, Paroxysmal Noc. Dyspnea, Edema, Lt Headedness, Other Objective-Cardiology Exam Last Set of Vital Signs Vital Signs 08/30/20 07:32 Temp 36.1 Pulse 69 Resp 16 B/P (MAP) 121/67 (85) Pulse Ox 93 O2 Delivery Room Air Capillary Refill : Less Than 3 SecondsLess Than 3 Seconds I&O Intake and Output 08/30/20 00:00 Intake Total 1480 ml Balance 1480 ml Intake Oral 1480 ml # Voids 8 # Bowel Movements 1 General: Alert, Oriented X3, Cooperative HEENT: Atraumatic, PERRLA Neck: Supple, No JVD, No Thyromegaly Lungs: Clear to Auscultation, Normal Air Movement Heart: Regular Rate, Normal S1, Normal S2, No Murmurs Abdomen: Normal Bowel Sounds, Soft, No Tenderness, No Hepatosplenomegaly, No Masses Extremities: No Clubbing, No Cyanosis, No Edema, Normal Pulses, No Tenderness/Swelling Skin: No Rashes, No Breakdown, No Significant Lesion Neuro: Normal Gait, Normal Speech, Strength at 5/5 X4 Ext, Normal Tone, Sensation Intact Psych/Mental Status: Mental Status NL, Mood NL A/P-Cardiology Admission Diagnosis CVA Complete heart block Hypertension Hyperlipidemia Assessment/Plan Right upper extremity weakness, improved, probably TIA. 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 Continue to monitor Pacemaker interrogation did not show any arrhythmia to suggest a cardiac source of embolization. History of left ventricular diastolic dysfunction. Echo showed normal systolic function. Continue to monitor Hypertension, restart home medication monitor Hyperlipidemia, monitor lipids History of dementia. Clinical Quality Measures DVT/VTE Risk/Contraindication: Risk Factor Score Per Nursin RFS Level Per Nursing on Admit: 4+=Very High NAJMA GALVAN MD Aug 30, 2020 08:46
[2020-08-30] MEDS ORDERED: LOSARTAN 25 MG (COZAAR) TAB PO SCH (09:00)
[2020-08-30] MEDS: ASPIRIN E.C. 325 MG (ECOTRIN) TABLET PO SCH (09:07)
[2020-08-30] MEDS: CARVEDILOL 3.125 MG (COREG) TABLET PO SCH (09:07)
[2020-08-30] MEDS: MECLIZINE 25 MG (ANTIVERT) TAB PO SCH (09:07)
[2020-08-30 11:13] VITALS: BP 137/65
[2020-08-30] MEDS ORDERED: ASPI325T32 PO (12:02)
[2020-08-30] MEDS ORDERED: ATOR80TA76 PO (12:02)
--- NOTE | 2020-08-30 13:10 | NUR ---
DC'D PER WC WITH FAMILY. REVIEWED DC INST AND RX AND F/U NEEDED WITH DAUGHTER IN LAW. VERBALIZED UNDERSTANDING.
--- NOTE | 2020-09-02 15:21 | Physician Query-Final Dx ---
MACEY HERNANDEZ 09/02/20 1521: Final Diagnosis Give Final Diagnosis Please give Final Diagnosis SPENSER MONTESINOS MD 09/07/20 1657: Final Diagnosis Give Final Diagnosis Acute ischemic stroke MACEY HERNANDEZ Sep 02, 2020 15:21 SPENSER MONTESINOS MD Sep 07, 2020 16:57
--- NOTE | 2020-09-12 22:37 | Discharge Summary ---
Discharge Summary Hospital Course Problems/Dx: (1) Acute ischemic stroke Status: Acute (2) HTN (hypertension) Status: Chronic (3) HLD (hyperlipidemia) Status: Chronic (4) SSS (sick sinus syndrome) Status: Chronic (5) Pacemaker Status: Chronic (6) Vertigo Status: Chronic (7) History of recent fall Status: Chronic Hospital Course Date of Admission: Aug 28, 2020 at 17:02 Admission Diagnosis : Acute ischemic stroke Family Physician/Provider: Claudy Enrique DO Date of Discharge: 08/30/20 Discharge Diagnosis: Acute ischemic stroke Hospital Course: Fay Rodriguez is an 89 year old female who presented with right sided weakness and was admitted with presumed acute ischemic stroke. She underwent a CT Head which showed no acute abnormalities. A CTA showed no evidence of occlusion, derik nosis, thrombis, or aneurysm. Her pacemaker was interogatted and showed no evidence of arrhythmia to indicate a source of embolism. MRI was unavailable over the weekend. She improved, stablized, and requested discharge. An MRI was ordered to be completed as an outpatient. She should follow up with Dr. Enrique in a week. She was also given a prescription for a front-wheeled walker. She was started on Aspirin 325 mg daily and Lipitor 80 mg daily. Labs and Pending Lab Test: Home Meds Active Aspirin EC (Aspirin) 325 Mg Tablet.dr 325 Mg PO DAILY 30 Days Atorvastatin Calcium 80 Mg Tablet 80 Mg PO HS 30 Days Furosemide 20 Mg Tablet 20 Mg PO DAILY Losartan Potassium 25 Mg Tablet 25 Mg PO DAILY Carvedilol 3.125 Mg Tablet 3.125 Mg PO BID Reported Meclizine HCl 25 Mg Tablet 25 Mg PO BID Multivitamin 1 Each Tablet 1 Each PO DAILY Simbrinza 1%-0.2% Eye Drops (Brinzolamide/Brimonidine Tart) 8 Ml Drops.susp 1 Drop OU BID Assessment/Pt Instructions Take medications as prescribed. Follow up with your PCP. Return with worsening weakness or if you feel like you are getting worse. Discharge Planning: <30 minutes discharge planning Discharge Instructions Discharge Diet: No Restrictions Activity as Tolerated: Yes Pneumonia Vaccine Order Indica: Yes Discharge Physical Examination Allergies: Coded Allergies: No Known Drug Allergies (Unverified , 08/15/19) Copy Copies To 1: CLAUDY ENRIQUE DO Discharge Summary Date of Admission Aug 28, 2020 at 17:02 Date of Discharge Aug 30, 2020 at 12:00 Discharge Date: Aug 30, 2020 Discharge Time: 12:00 Admission Diagnosis acute ischemic stroke Discharge Diagnosis Acute ischemic stroke (1) Acute ischemic stroke Status: Acute (2) HTN (hypertension) Status: Chronic (3) HLD (hyperlipidemia) Status: Chronic (4) SSS (sick sinus syndrome) Status: Chronic (5) Pacemaker Status: Chronic (6) Vertigo Status: Chronic (7) History of recent fall Status: Chronic Clinical Quality Measures DVT/VTE Risk/Contraindication: Risk Factor Score Per Nursin RFS Level Per Nursing on Admit: 4+=Very High SPENSER MONTESINOS MD Sep 12, 2020 22:27
== END 2020-08-30 12:00 | disposition home or self-care (01) ==
LOC: EDUNIT# 10:44 → ER FS 10:46 → 4TH 17:02 → UNDOADMOB 17:03 → 4TH 17:03 → UNDODISOB 08-30 13:10
PROVIDERS: ADMIT Internal Medicine; ATTEND Internal Medicine
DX: I63.9 Cerebral infarction, unspecified (principal); I10 Essential (primary) hypertension; E78.5 Hyperlipidemia, unspecified; I49.5 Sick sinus syndrome; E78.00 Pure hypercholesterolemia, unspecified; I36.1 Nonrheumatic tricuspid (valve) insufficiency; R42 Dizziness and giddiness; Z95.0 Presence of cardiac pacemaker; Z79.82 Long term (current) use of aspirin; Z79.899 Other long term (current) drug therapy; Z91.81 History of falling
CPT/HCPCS: 36415; 70450; 70496; 70498; 71045; 80053 ×2; 80061; 82962; 84484; 85025 ×2; 85610; 85730; 93005; 93306; 97162; 97166; 97535; 99283; G0378

== ENCOUNTER 2021-10-31 11:08 | Emergency (ER) | payer MEDICARE ==
[~2021-10-31] VITALS: Ht 154.9 cm; Wt 56.2 kg
[~2021-10-31 11:08] MED LIST changes: +ASPI325T32 PO; +ATOR80TA76 PO; -ISM60TCR PO; +ISOS60TA63 PO; -LISI-552; -LISI-552 PO; +LISI20TA26; +LISI20TA26 PO; +MONT-40 PO; -MONT10TA97 PO
--- NOTE | 2021-10-31 11:10 | ED Neurological Problem ---
General Stated Complaint: SLURRED SPEECH; FACIAL DROOP History of Present Illness Date Seen by Provider: Oct 31, 2021 Time Seen by Provider: 11:09 Initial Comments 89-year-old female presents with left-sided facial droop and weakness, slurred speech. Decreased weakness on the left side. Symptoms started around 3 AM this morning. Patient has home health care but patient was not brought in at that time. Family stopped by noticed and sent her to the ER. Patient has no complaints of fever or chills. Family did report that she had previously broke her left arm so does not use it a lot but it is being used less than her baseline. They report she is not using her left leg there is much also Allergies and Home Medications Allergies Coded Allergies: No Known Drug Allergies (Unverified , 08/15/19) Patient Home Medication List Home Medication List Reviewed: Yes Aspirin (Aspirin EC) 325 Mg Tablet.dr, 325 MG PO DAILY Prescribed by: SPENSER MONTESINOS on 08/30/20 120 Atorvastatin Calcium (Atorvastatin Calcium) 80 Mg Tablet, 80 MG PO HS Prescribed by: SPENSER MONTESINOS on 08/30/20 120 Brinzolamide/Brimonidine Tart (Simbrinza 1%-0.2% Eye Drops) 8 Ml Drops.susp, 1 DROP OU BID, (Reported) Entered as Reported by: LISA KULKARNI on 04/03/20 1057 Carvedilol (Carvedilol) 3.125 Mg Tablet, 3.125 MG PO BID Prescribed by: JOHNY GLASGOW on 04/07/20 1201 Furosemide (Furosemide) 20 Mg Tablet, 20 MG PO DAILY Prescribed by: JOHNY GLASGOW on 04/07/20 1201 Losartan Potassium (Losartan Potassium) 25 Mg Tablet, 25 MG PO DAILY Prescribed by: JOHNY GLASGOW on 04/07/20 1201 Meclizine HCl (Meclizine HCl) 25 Mg Tablet, 25 MG PO BID, (Reported) Entered as Reported by: KWAN ALMANZA on 04/06/20 1004 Multivitamin (Multivitamin) 1 Each Tablet, 1 EACH PO DAILY, (Reported) Entered as Reported by: KWAN ALMANZA on 04/06/20 1001 Review of Systems Review of Systems Constitutional: no symptoms reported Eyes: No Symptoms Reported Respiratory: no symptoms reported Cardiovascular: no symptoms reported Gastrointestinal: no symptoms reported Musculoskeletal: see HPI Skin: no symptoms reported Psychiatric/Neurological: See HPI Past Qtrbzwf-Tnulku-Kqunlv Hx Immunizations Up To Date Tetanus Booster (TDap): Unknown Seasonal Allergies Seasonal Allergies: No Past Medical History Surgeries: Yes Appendectomy, Bowel Surgery Respiratory: No Cardiac: Yes High Cholesterol, Hypertension Neurological: No Vertigo Genitourinary: No Gastrointestinal: No Musculoskeletal: No Fractures Endocrine: No HEENT: No Loss of Vision: Denies Hearing Impairment: Hard of Hearing Cancer: No Psychosocial: No Integumentary: No Blood Disorders: No Physical Exam Vital Signs Vital Signs - First Documented 10/31/21 11:17 Temp 36.5 Pulse 87 Resp 16 B/P (MAP) 195/104 (134) O2 Delivery Room Air Capillary Refill : Height, Weight, BMI Height: '" Weight: lbs. oz. kg; 27.14 BMI Method: General Appearance: no apparent distress Respiratory: lungs clear, normal breath sounds Cardiovascular: normal peripheral pulses, regular rate, rhythm Gastrointestinal: non tender Extremities: normal capillary refill Neurologic/Psychiatric: alert, aphasia, facial droop (Mild left), motor weakness Crainal Nerves: abnormal speech, facial droop, facial weakness Motor/Sensory: weak motor strength LUE, weak motor strength LLE Skin: normal color, warm/dry Stroke Onset of Symptoms Date of Onset of Symptoms: Oct 31, 2021 Time of Symptom Onset: 03:00 NIH Stroke Scale Assessment Select: Initial Level of Consciousness: 0=Alert (0), LOC Commands: 0=Performs both tasks (0), Gaze: Normal (0), Visual Fregoso: 0=No visual loss (0), Facial Movement (Facial Paresis): 2=Partial paralysis (2), Motor Function-Arms Right: 0=No drift (0), Motor Function-Arms Left: 2=Some effort/gravity (2), Motor Function-Legs Right: 0=No drift (0), Motor Function-Legs Left: 2=Some effort/gravity (2), Limb Ataxia: 1=Present in one limb (1), Best Language: 1=Mild to moderat aphasia (1), Dysarthria: 1=Mild to moderate loss (1), Extinction & Inattention: 1=Visual,tactile,auditory (1), Total: 10 Progress/Results/Core Measures Results/Orders Lab Results Laboratory Tests Test 10/31/21 11:14 10/31/21 12:26 Range/Units White Blood Count 5.7 4.3-11.0 10^3/uL Red Blood Count 5.46 H 3.80-5.11 10^6/uL Hemoglobin 16.9 H 11.5-16.0 g/dL Hematocrit 51 35-52 % Mean Corpuscular Volume 93 80-99 fL Mean Corpuscular Hemoglobin 31 25-34 pg Mean Corpuscular Hemoglobin Concent 33 32-36 g/dL Red Cell Distribution Width 12.0 10.0-14.5 % Platelet Count 290 130-400 10^3/uL Mean Platelet Volume 9.1 9.0-12.2 fL Immature Granulocyte % (Auto) 0 % Neutrophils (%) (Auto) 56 42-75 % Lymphocytes (%) (Auto) 30 12-44 % Monocytes (%) (Auto) 10 0-12 % Eosinophils (%) (Auto) 3 0-10 % Basophils (%) (Auto) 1 0-10 % Neutrophils # (Auto) 3.2 1.8-7.8 X 10^3 Lymphocytes # (Auto) 1.7 1.0-4.0 X 10^3 Monocytes # (Auto) 0.6 0.0-1.0 X 10^3 Eosinophils # (Auto) 0.1 0.0-0.3 10^3/uL Basophils # (Auto) 0.1 0.0-0.1 10^3/uL Immature Granulocyte # (Auto) 0.0 0.0-0.1 10^3/uL Prothrombin Time 12.7 12.2-14.7 SEC INR Comment 0.9 0.8-1.4 Activated Partial Thromboplast Time 28 24-35 SEC D-Dimer 0.93 H 0.00-0.49 UG/ML Sodium Level 137 135-145 MMOL/L Potassium Level 4.4 3.6-5.0 MMOL/L Chloride Level 102 98-107 MMOL/L Carbon Dioxide Level 25 21-32 MMOL/L Anion Gap 10 5-14 MMOL/L Blood Urea Nitrogen 17 7-18 MG/DL Creatinine 0.87 0.60-1.30 MG/DL Estimat Glomerular Filtration Rate 64 BUN/Creatinine Ratio 20 Glucose Level 105 70-105 MG/DL Calcium Level 9.2 8.5-10.1 MG/DL Corrected Calcium 9.1 8.5-10.1 MG/DL Total Bilirubin 0.6 0.1-1.0 MG/DL Aspartate Amino Transf (AST/SGOT) 24 5-34 U/L Alanine Aminotransferase (ALT/SGPT) 26 0-55 U/L Alkaline Phosphatase 71 40-136 U/L Troponin I < 0.30 <0.30 NG/ML Total Protein 6.8 6.4-8.2 GM/DL Albumin 4.1 3.2-4.5 GM/DL Urine Color YELLOW Urine Clarity CLEAR Urine pH 7.5 5-9 Urine Specific [place] <=1.005 1.016-1.022 Urine Protein NEGATIVE NEGATIVE Urine Glucose (UA) NEGATIVE NEGATIVE Urine Ketones NEGATIVE NEGATIVE Urine Nitrite NEGATIVE NEGATIVE Urine Bilirubin NEGATIVE NEGATIVE Urine Urobilinogen 0.2 < = 1.0 MG/DL Urine Leukocyte Esterase NEGATIVE NEGATIVE Urine RBC (Auto) NEGATIVE NEGATIVE Urine RBC NONE /HPF Urine WBC NONE /HPF Urine Squamous Epithelial Cells 10-25 H /HPF Urine Crystals NONE /LPF Urine Bacteria TRACE /HPF Urine Casts NONE /LPF Urine Mucus NEGATIVE /LPF Urine Culture Indicated NO My Orders Orders - MARLEY,MANDA L DO Cbc With Automated Diff (10/31/21 11:13) Protime With Inr (10/31/21 11:13) Partial Thromboplastin Time (10/31/21 11:13) Comprehensive Metabolic Panel (10/31/21 11:13) Fibrin Degradation Products (10/31/21 11:13) Troponin I Fs (10/31/21 11:13) Ua Culture If Indicated (10/31/21 11:13) Chest 1 View Ap/Pa Only (10/31/21 11:13) Ekg Tracing (10/31/21 11:13) Nothing By Mouth (10/31/21 Lunch) Accucheck Stat ONCE (10/31/21 11:13) Ed Iv/Invasive Line Start (10/31/21 11:13) Ed Iv/Invasive Line Start (10/31/21 11:13) Vital Signs Stroke Patient Q15M (10/31/21 11:13) Ct Head Wo-R/O Stroke (10/31/21 11:13) Intake & Output 06,14,22 (10/31/21 11:13) Monitor-Rhythm Ecg Trace Only (10/31/21 11:13) Dysphagia Screening Tool (10/31/21 11:13) Lipid Panel (11/01/21 06:00) Ct Angio Head/Neck (10/31/21 11:13) Iohexol Injection (Omnipaque 350 Mg/Ml 1 (10/31/21 12:00) Received Contrast (Hold Metformin- Contr (10/31/21 12:00) Sodium Chloride Flush (Catheter Flush Sy (10/31/21 12:00) Ns (Ivpb) (Sodium Chloride 0.9% Ivpb Bag (10/31/21 12:00) Medications Given in ED Current Medications Medications Dose Ordered Sig/Joe Route Start Time Stop Time Status Last Admin Dose Admin Iohexol 75 ml ONCE ONCE IV 10/31/21 12:00 10/31/21 12:01 DC 10/31/21 12:03 75 ML Sodium Chloride 10 ml NEEDED PRN IV 10/31/21 12:00 10/31/21 12:03 10 ML Sodium Chloride 100 ml ONCE ONCE IV 10/31/21 12:00 10/31/21 12:01 DC 10/31/21 12:03 100 ML Vital Signs/I&O 10/31/21 11:17 Temp 36.5 Pulse 87 Resp 16 B/P (MAP) 195/104 (134) O2 Delivery Room Air Progress Progress Note : Progress Note Patient symptoms rapidly resolved where she does had some mild slurred speech and facial droop. However she does have some forehead involvement. I do feel has a TIA but there is in the differential possibility of Disla's palsy. I did discuss this with patient and family. At this time family will take her back home and just follow-up with her primary care provider for further outpatient evaluation and work-up and medication adjustment as needed for TIA. Patient stable and discharged home Initial ECG Impression Date: Oct 31, 2021 Initial ECG Impression Time: 11:31 Initial ECG Rate: 73 Initial ECG Rhythm: Normal Sinus Comment nsr, RBBB, no acute finding Diagnostic Imaging Diagonstic Imaging: Xray Plain Films/CT/US/NM/MRI: chest Comments Date of Exam:10/31/21 CHEST 1 VIEW AP/PA ONLY Indication: Altered mental status, dyspnea. Comparison: 08/28/2020. Discussion: Single portable upright view of the chest was obtained. Stable normal heart size. Left-sided pacemaker stable. No consolidation, pleural fluid, or pneumothorax. No osseous abnormality. Impression: 1. Negative chest. Reviewed: Reviewed by Me, Reviewed/Discussed Diagonstic Imaging: CT Plain Films/CT/US/NM/MRI: head Comments CT ANGIO HEAD/NECK PROCEDURE: CT angiography of the head and CT angiography of the neck with and without contrast. TECHNIQUE: Contiguous noncontrast images were obtained from the skull base through the vertex. After intravenous contrast administration, helical CT angiography of the neck was performed. Source data was reformatted into 3D MIP projections. Delayed post contrast acquisition was also obtained. Auto Exposure Controls were utilized during the CT exam to meet ALARA standards for radiation dose reduction. Indication: Slurred speech and headache with left-sided weakness, altered mental status. Comparison: Noncontrast head CT earlier today. CTA of the head and neck 08/28/2020. Discussion: CTA head: Intracranial arterial luminal enhancement and morphology are normal without focal stenosis, major vessel cut off, aneurysm, or vascular malformation. The right AUTOMOTIVE GENERAL SALES MANAGER is predominantly in origin. Visualized venous structures are unremarkable. CTA neck: The arch has conventional branch configuration. The vertebral arteries are left dominant. The carotid arteries bifurcate midneck without focal stenosis, vessel cut off, or vascular malformation within the neck. The visualized soft tissues are unremarkable. Impression: 1. Unremarkable CTA of the head and neck. CT Results/Progress Notes CT HEAD WO-R/O STROKE PROCEDURE: CT head wo r/o stroke. TECHNIQUE: Multiple contiguous axial images were obtained through the brain without the use of intravenous contrast. Auto Exposure Controls were utilized during the CT exam to meet ALARA standards for radiation dose reduction. Indication: New onset left-sided weakness and slurred speech, altered mental status. Comparison: 08/28/2020. Discussion: Diffuse brain volume loss is stable, likely age related. White matter hypoattenuation is nonspecific though not greater than expected for age related. Chronic small vessel ischemic disease, stable. No acute intracranial hemorrhage, mass, midline shift, hydrocephalus. The orbits, sinuses, mastoid air cells, and calvarium are unremarkable. Impression: 1. Stable senescent changes as described. No acute intracranial abnormality identified. Departure Impression Primary Impression: TIA (transient ischemic attack) Disposition: 01 HOME, SELF-CARE Condition: Stable Departure-Patient Inst. Referrals: KELLENBERGER,EMILY D DO (PCP/Family) Primary Care Physician Patient Instructions: Transient Ischemic Attack, Lowering the Risk of Having Another Stroke Add. Discharge Instructions: Follow-up with Dr. BERKOWITZ to review your medications and further outpatie nt work-up as warranted MANDA MARLEY DO Oct 31, 2021 11:09
[2021-10-31 11:29] LABS: WHITE BLOOD COUNT 5.7 10^3/uL (4.3-11.0)
[2021-10-31 11:30] LABS: BASOPHILS # (AUTO) 0.1 10^3/uL (0.0-0.1); BASOPHILS % (AUTO) 1 % (0-10); EOSINOPHILS # (AUTO) 0.1 10^3/uL (0.0-0.3); EOSINOPHILS % (AUTO) 3 % (0-10); HEMATOCRIT 51 % (35-52); HEMOGLOBIN 16.9 g/dL (11.5-16.0); LYMPHOCYTES # (AUTO) 1.7 X 10^3 (1.0-4.0); LYMPHOCYTES % (AUTO) 30 % (12-44); MEAN CORPUSCULAR HEMOGLOBIN 31 pg (25-34); MEAN CORPUSCULAR HGB CONC 33 g/dL (32-36); MEAN CORPUSCULAR VOLUME 93 fL (80-99); MEAN PLATELET VOLUME 9.1 fL (9.0-12.2); MONOCYTES # (AUTO) 0.6 X 10^3 (0.0-1.0); MONOCYTES % (AUTO) 10 % (0-12); NEUTROPHILS # (AUTO) 3.2 X 10^3 (1.8-7.8); NEUTROPHILS % (AUTO) 56 % (42-75); PLATELET COUNT 290 10^3/uL (130-400)
--- NOTE | 2021-10-31 11:30 | Diagnostic Imaging Report ---
PROCEDURE: CT head wo r/o stroke. TECHNIQUE: Multiple contiguous axial images were obtained through the brain without the use of intravenous contrast. Auto Exposure Controls were utilized during the CT exam to meet ALARA standards for radiation dose reduction. Indication: New onset left-sided weakness and slurred speech, altered mental status. Comparison: 08/28/2020. Discussion: Diffuse brain volume loss is stable, likely age related. White matter hypoattenuation is nonspecific though not greater than expected for age related. Chronic small vessel ischemic disease, stable. No acute intracranial hemorrhage, mass, midline shift, hydrocephalus. The orbits, sinuses, mastoid air cells, and calvarium are unremarkable. Impression: 1. Stable senescent changes as described. No acute intracranial abnormality identified. Dictated by: Dictated on workstation # [id number]
--- NOTE | 2021-10-31 11:42 | Diagnostic Imaging Report ---
Indication: Altered mental status, dyspnea. Comparison: 08/28/2020. Discussion: Single portable upright view of the chest was obtained. Stable normal heart size. Left-sided pacemaker stable. No consolidation, pleural fluid, or pneumothorax. No osseous abnormality. Impression: 1. Negative chest. Dictated by: Dictated on workstation # [id number]
[2021-10-31 11:45] LABS: INR 0.9 (0.8-1.4); PROTHROMBIN TIME PATIENT 12.7 SEC (12.2-14.7)
[2021-10-31 11:46] LABS: ALANINE AMINOTRANSFERASE 26 U/L (0-55); ALBUMIN 4.1 GM/DL (3.2-4.5); ALKALINE PHOSPHATASE 71 U/L (40-136); BILIRUBIN,TOTAL 0.6 MG/DL (0.1-1.0); BUN/CREATININE RATIO 20; CALCIUM 9.2 MG/DL (8.5-10.1); CARBON DIOXIDE 25 MMOL/L (21-32); CHLORIDE 102 MMOL/L (98-107); CREATININE SERUM 0.87 MG/DL (0.60-1.30); GFR ESTIMATED 64; GLUCOSE 105 MG/DL (70-105); POTASSIUM 4.4 MMOL/L (3.6-5.0); SODIUM 137 MMOL/L (135-145); TOTAL PROTEIN 6.8 GM/DL (6.4-8.2)
[2021-10-31 11:52] LABS: FIBRIN DEGRADATION PRODUCTS 0.93 UG/ML (0.00-0.49)
[2021-10-31] MEDS ORDERED: IOHEXOL 350 MG/ML 100 ML (OMNIPAQUE 350) VIAL IV ONE (12:00)
[2021-10-31] MEDS ORDERED: HOLD METFORMIN - RECEIVED CONTRAST 20 ML VIAL IV SCH (12:00)
[2021-10-31] MEDS ORDERED: NS 100 ML (IVPB) BAG IV ONE (12:00)
[2021-10-31] MEDS ORDERED: CATHETER FLUSH 10 ML SYR IV PRN (12:00)
--- NOTE | 2021-10-31 12:28 | Diagnostic Imaging Report ---
PROCEDURE: CT angiography of the head and CT angiography of the neck with and without contrast. TECHNIQUE: Contiguous noncontrast images were obtained from the skull base through the vertex. After intravenous contrast administration, helical CT angiography of the neck was performed. Source data was reformatted into 3D MIP projections. Delayed post contrast acquisition was also obtained. Auto Exposure Controls were utilized during the CT exam to meet ALARA standards for radiation dose reduction. Indication: Slurred speech and headache with left-sided weakness, altered mental status. Comparison: Noncontrast head CT earlier today. CTA of the head and neck 08/28/2020. Discussion: CTA head: Intracranial arterial luminal enhancement and morphology are normal without focal stenosis, major vessel cut off, aneurysm, or vascular malformation. The right WHEEL ADJUSTER is predominantly in origin. Visualized venous structures are unremarkable. CTA neck: The arch has conventional branch configuration. The vertebral arteries are left dominant. The carotid arteries bifurcate midneck without focal stenosis, vessel cut off, or vascular malformation within the neck. The visualized soft tissues are unremarkable. Impression: 1. Unremarkable CTA of the head and neck. Dictated by: Dictated on workstation # [id number]
[2021-10-31 12:35] LABS: BACTERIA,URINE TRACE /HPF; BILIRUBIN,URINE NEGATIVE (NEGATIVE); CLARITY,URINE CLEAR; COLOR,URINE YELLOW; GLUCOSE, URINE (UA) NEGATIVE (NEGATIVE); KETONES,URINE NEGATIVE (NEGATIVE); LEUKOCYTE ESTERASE ,URINE NEGATIVE (NEGATIVE); NITRITE,URINE NEGATIVE (NEGATIVE); PH,URINE 7.5 (5-9); PROTEIN,URINE NEGATIVE (NEGATIVE)
[2021-10-31 13:54] VITALS: BP 149/82
== END 2021-10-31 13:54 | disposition home or self-care (01) ==
LOC: EDUNIT# 11:08 → ER FS 11:09
DX: G45.9 Transient cerebral ischemic attack, unspecified (principal); I10 Essential (primary) hypertension; E78.00 Pure hypercholesterolemia, unspecified; H91.90 Unspecified hearing loss, unspecified ear; R29.710 NIHSS score 10; Z79.82 Long term (current) use of aspirin; Z79.899 Other long term (current) drug therapy
CPT/HCPCS: 36415; 70450; 70496; 70498; 71045; 80053; 81000; 84484; 85025; 85379; 85610; 85730; 93005; 93041

== ENCOUNTER → 2021-11-12 | Outpatient (CLI) | payer MEDICARE ==
--- NOTE | 2021-11-12 17:05 | Diagnostic Imaging Report ---
PROCEDURE: US carotid duplex, bilateral. TECHNIQUE: Multiple real-time grayscale images were obtained over the carotid arteries in various projections, bilaterally. Additional spectral analysis and color Doppler duplex images were also obtained. INDICATION: Transient cerebral ischemic attack COMPARISON: CTA dated 10/31/2021 FINDINGS: Mild scattered plaque is noted throughout the bilateral carotid arterial systems. Examination is slightly limited secondary to positioning. In particular, the distal right internal carotid artery and the right vertebral artery were not well-visualized. Otherwise, peak systolic velocities throughout the bilateral carotid arterial systems are within normal limits. Additionally, the bilateral internal carotid artery to common carotid artery ratios are within normal limits. Antegrade flow within the left vertebral artery. IMPRESSION: Slightly limited examination secondary to positioning with poor visualization of the right vertebral artery and distal right internal carotid artery. Of note, these vessels appear grossly unremarkable on prior CTA from 10/31/2021. No additional evidence of occlusion or hemodynamically significant stenosis within the limits of the exam. Parameters based on the consensus panel Renteria-Scale and Doppler ultrasound criteria published August 2003, Radiology, Volume 229. DOPPLER (peak systolic velocity M/S Right Left CCA .73 .57 ICA Proximal .35 .34 ICA Mid .72 .31 ICA Distal Not Seen .51 RATIO .99 .89 ECA .67 .43 VERT Not Seen .35 Dictated by: Dictated on workstation # [id number]
== END ==
LOC: RAD 12:30
PROVIDERS: ATTEND Emergency Medicine
DX: G45.9 Transient cerebral ischemic attack, unspecified (principal)
CPT/HCPCS: 93880